=== PATIENT | male | born 1935 | race Caucasian/White ===

== ENCOUNTER 2016-05-23 05:56 | Inpatient (IN) | payer OTHER, MEDICARE ==
[~2016-05-23] VITALS: Ht 172.7 cm; Wt 48.0 kg
[~2016-05-23 05:56] MED LIST: ENDO7.5T10 PO; HYDR-3533 PO; POLY119S PO; PROS5TAB2 PO; TYLE3 PO
[2016-05-23 06:09] VITALS: BP 171/73; PULSE 58; RESP 16; TEMP 97.6; O2SAT 91
--- NOTE | 2016-05-23 06:48 | PD ---
HPI Chief Complaint: Fall Time Seen by Provider: 06:12 Travel History International Travel<30 days: No Contact w/Intl Traveler<30days: No Traveled to known affect area: No History of Present Illness HPI 81-year-old male complains of left hip pain and laceration to left eyebrow. Patient fell at home this morning. Patient denied loss of consciousness. Patient denies a headache or neck pain. Patient denied any chest pain or shortness of breath. Patient denies abdominal pain. Patient denies any focal weakness and numbness of extremity. Patient complaining of severe pain localized to left hip. Patient denies any pain radiation. On a scale from 1- 10 the pain is a 10. Patient is not sure of TD booster status. PFSH Past Medical History Cancer: Yes (PROSTATE) Cardiovascular Problems: No Diabetes: No Diminished Hearing: No Endocrine: No Gastrointestinal Disorders: Yes (NAUSEA VOMITING, CONSTIPATION) Genitourinary: No Hepatitis: No Hiatal Hernia: No Hypertension: No Immune Disorder: No Medical other: Yes (EDEMA OF FEET) Musculoskeletal: Yes (osteoporesis) Neurologic: Yes (DIZZY) Psychiatric: No Respiratory: No Thyroid Disease: No Tetanus Vaccination: Unknown Influenza Vaccination: No Past Surgical History Genitourinary Surgery: Yes (ESWL) Joint Replacement: No Pacemaker: No Other Surgery: Yes (back surgery) Social History Alcohol Use: Yes (DAILY BEER OR WINE) Tobacco Use: Yes (3 CIGS PER DAY) Substance Use: No Allergies-Medications (Allergen,Severity, Reaction): Coded Allergies: No Known Allergies (Unverified , 07/07/15) Reported Meds & Prescriptions Reported Meds & Active Scripts Active Review of Systems General / Constitutional: No: Fever Eyes: No: Visual changes HENT: No: Headaches Cardiovascular: No: Chest Pain or Discomfort Respiratory: No: Shortness of Breath Gastrointestinal: No: Abdominal Pain Genitourinary: No: Dysuria Musculoskeletal: Positive: Pain Skin: No Rash Neurologic: No: Weakness Psychiatric: No: Depression Endocrine: No: Polydipsia Hematologic/Lymphatic: No: Easy Bruising Physical Exam Narrative GENERAL: Well-nourished, well-developed patient. SKIN: Warm and dry. HEAD: Normocephalic. Patient has 3 cm laceration left forehead above the left eyebrow. No active bleeding. EYES: No scleral icterus. No injection or drainage. NECK: Supple, trachea midline. No JVD or lymphadenopathy. CARDIOVASCULAR: Regular rate and rhythm without murmurs, gallops, or rubs. RESPIRATORY: Breath sounds equal bilaterally. No accessory muscle use. GASTROINTESTINAL: Abdomen soft, non-tender, nondistended. MUSCULOSKELETAL: No cyanosis, or edema. BACK: Nontender without obvious deformity. No CVA tenderness. Left leg laterally rotated and mildly shortened. Patient has moderate to severe tenderness on palpation left hip. Sensorimotor function distally intact. Good DP pulses. Data Data Last Documented VS Vital Signs Date Time Temp Pulse Resp B/P Pulse Ox O2 Delivery O2 Flow Rate FiO2 05/23/16 06:16 58 16 92 Nasal Cannula 2 05/23/16 06:09 97.6 171/73 Orders Electrocardiogram (05/23/16 06:12) Complete Blood Count With Diff (05/23/16 06:12) Comprehensive Metabolic Panel (05/23/16 06:12) Prothrombin Time / Inr (Pt) (05/23/16 06:12) Act Partial Throm Time (Ptt) (05/23/16 06:12) Urinalysis - C+S If Indicated (05/23/16 06:12) Thyroid Stimulating Hormone (05/23/16 06:12) Chest, Single Ap (05/23/16 06:12) Iv Access Insert/Monitor (05/23/16 06:12) Ecg Monitoring (05/23/16 06:12) Oximetry (05/23/16 06:12) Type And Screen (05/23/16 06:12) Hip, Uni(Ap&Lat) W Ap Pelvis (05/23/16 06:12) MDM Medical Decision Making Medical Screen Exam Complete: Yes Emergency Medical Condition: Yes (tHAT FLUID THAT THE LACERATION TO THE FOREHEAD THE RADIUS THAT HE SHOULD BE OKAY WITH) Differential Diagnosis Differential diagnosis including laceration, contusion, fracture, dislocation. Narrative Course 81 year male with left forehead laceration left hip injury. Petar Taylor MD May 23, 2016 06:48
--- NOTE | 2016-05-23 06:50 | PD ---
Physical Exam Date Seen by Provider: May 23, 2016 Narrative Care assumed at 0700 pending workup for probable left hip fracture. Patient states that he is currently comfortable. His left lower extremity is shortened and externally rotated. Data Data Last Documented VS Vital Signs Date Time Temp Pulse Resp B/P Pulse Ox O2 Delivery O2 Flow Rate FiO2 05/23/16 06:16 58 16 92 Nasal Cannula 2 05/23/16 06:09 97.6 171/73 Orders Electrocardiogram (05/23/16 06:12) Complete Blood Count With Diff (05/23/16 06:12) Comprehensive Metabolic Panel (05/23/16 06:12) Prothrombin Time / Inr (Pt) (05/23/16 06:12) Act Partial Throm Time (Ptt) (05/23/16 06:12) Urinalysis - C+S If Indicated (05/23/16 06:12) Thyroid Stimulating Hormone (05/23/16 06:12) Chest, Single Ap (05/23/16 06:12) Iv Access Insert/Monitor (05/23/16 06:12) Ecg Monitoring (05/23/16 06:12) Oximetry (05/23/16 06:12) Type And Screen (05/23/16 06:12) Hip, Uni(Ap&Lat) W Ap Pelvis (05/23/16 06:12) Urinary Catheter Management GAGE.Q8H (05/23/16 07:34) Labs Laboratory Tests Test 05/23/16 05/23/16 06:15 07:30 White Blood Count 8.7 TH/MM3 Red Blood Count 3.86 MIL/MM3 Hemoglobin 12.3 GM/DL Hematocrit 36.8 % Mean Corpuscular Volume 95.3 FL Mean Corpuscular Hemoglobin 31.8 PG Mean Corpuscular Hemoglobin 33.3 % Concent Red Cell Distribution Width 15.4 % Platelet Count 245 TH/MM3 Mean Platelet Volume 9.0 FL Neutrophils (%) (Auto) 75.7 % Lymphocytes (%) (Auto) 15.2 % Monocytes (%) (Auto) 6.6 % Eosinophils (%) (Auto) 1.3 % Basophils (%) (Auto) 1.2 % Neutrophils # (Auto) 6.6 TH/MM3 Lymphocytes # (Auto) 1.3 TH/MM3 Monocytes # (Auto) 0.6 TH/MM3 Eosinophils # (Auto) 0.1 TH/MM3 Basophils # (Auto) 0.1 TH/MM3 CBC Comment DIFF FINAL Differential Comment Prothrombin Time 11.4 SEC Prothromb Time International 1.0 RATIO Ratio Activated Partial 24.9 SEC Thromboplast Time Sodium Level 144 MEQ/L Potassium Level 3.5 MEQ/L Chloride Level 110 MEQ/L Carbon Dioxide Level 26.3 MEQ/L Anion Gap 8 MEQ/L Blood Urea Nitrogen 15 MG/DL Creatinine 0.80 MG/DL Estimat Glomerular Filtration 92 ML/MIN Rate Random Glucose 115 MG/DL Calcium Level 8.7 MG/DL Total Bilirubin 0.3 MG/DL Aspartate Amino Transf 15 U/L (AST/SGOT) Alanine Aminotransferase 19 U/L (ALT/SGPT) Alkaline Phosphatase 93 U/L Total Protein 6.7 GM/DL Albumin 3.4 GM/DL Thyroid Stimulating Hormone 7.350 uIU/ML 3rd Gen Blood Type O POSITIVE Antibody Screen NEGATIVE Blood Bank Comment Urine Color YELLOW Urine Turbidity CLEAR Urine pH 5.5 Urine Specific [place] 1.020 Urine Protein TRACE mg/dL Urine Glucose (UA) NEG mg/dL Urine Ketones NEG mg/dL Urine Occult Blood TRACE Urine Nitrite NEG Urine Bilirubin NEG Urine Urobilinogen LESS THAN 2.0 MG/DL Urine Leukocyte Esterase NEG Urine RBC 5 /hpf Urine WBC LESS THAN 1 /hpf Urine Squamous Epithelial <1 /hpf Cells Urine Bacteria RARE /hpf Microscopic Urinalysis Comment CULT NOT INDICATED MDM Supervised Visit with BRET: No Differential Diagnosis Differential diagnosis is hip fracture versus contusion versus dislocation. Narrative Course CBC has an H&H of 12.3 and 36.8. His INR is 1.0. His chemistries are unremarkable. TSH is high at 7.35. Chest x-ray shows no acute disease. Left hip x-ray shows an impacted femoral neck fracture. Physician Communication Physician Communication Case discussed with Dr. Cameron. The patient will be admitted to the medical service with orthopedic consultation with plans for eminent repair of the hip fracture. Diagnosis Primary Impression: Closed left hip fracture Qualified Code: S72.002A - Closed left hip fracture, initial encounter Admitting Information Admitting Physician Requests: Admit Condition: Stable Ashley Randle MD May 23, 2016 06:50
--- NOTE | 2016-05-23 06:51 | RADRPT ---
EXAM DATE/TIME: 05/23/2016 06:20 [facility] COMPARISON: No previous studies available for comparison. INDICATIONS : Left hip pain post fall. MEDICAL HISTORY : None. SURGICAL HISTORY : Kyphoplasty. ENCOUNTER: Initial ACUITY: 1 day PAIN SCORE: 10/10 LOCATION: Left lateral hip FINDINGS: Examination of the left hip was performed with AP Pelvis. Possible impacted fracture femoral neck. No dislocation. The acetabulum is grossly intact. CONCLUSION: Possible impacted fracture left femoral neck. Noncontrast CT scan may be warranted. Mac Garcia MD on May 23, 2016 at 6:47 Board Certified Radiologist. This report was verified electronically.
--- NOTE | 2016-05-23 06:51 | RADRPT ---
EXAM DATE/TIME: 05/23/2016 06:31 [facility] COMPARISON: No previous studies available for comparison. INDICATIONS : Shortness of breath. MEDICAL HISTORY : None. SURGICAL HISTORY : Kyphoplasty. ENCOUNTER: Initial ACUITY: 1 day PAIN SCORE: 0/10 LOCATION: Bilateral chest FINDINGS: A single view of the chest demonstrates the lungs to be symmetrically aerated without evidence of mas s, infiltrate or effusion. The cardiomediastinal contours are unremarkable. Osseous structures are intact. Kyphoplasty cement within the upper lumbar vertebral body. CONCLUSION: No acute disease. Mac Garcia MD on May 23, 2016 at 6:49 Board Certified Radiologist. This report was verified electronically.
[2016-05-23 06:54] LABS: AUTOMATED NEUTROPHIL # 6.6 TH/MM3 (1.8-7.7); BASOPHIL # 0.1 TH/MM3 (0-0.2); BASOPHIL % 1.2 % (0.0-2.0); EOSINOPHIL # 0.1 TH/MM3 (0-0.4); EOSINOPHIL % 1.3 % (0.0-4.0); HEMATOCRIT 36.8 % (39.0-51.0); HEMO FLAGS DIFF FINAL; LYMPH % 15.2 % (9.0-44.0); LYMPHOCYTE # 1.3 TH/MM3 (1.0-4.8); MEAN CELL VOLUME 95.3 FL (80.0-100.0); MEAN CORPUSCULAR HEMOGLOBIN 31.8 PG (27.0-34.0); MEAN CORPUSCULAR HGB CONC 33.3 % (32.0-36.0); MONO % 6.6 % (0.0-8.0); NEUT % 75.7 % (16.0-70.0); PLATELET COUNT 245 TH/MM3 (150-450); RED BLOOD COUNT 3.86 MIL/MM3 (4.50-5.90); RED CELL DISTRIBUTION WIDTH 15.4 % (11.6-17.2); WHITE BLOOD COUNT 8.7 TH/MM3 (4.0-11.0)
[2016-05-23 06:57] LABS: ANION GAP 8 MEQ/L (5-15); AST (GOT) 15 U/L (15-37); BICARBONATE 26.3 MEQ/L (21.0-32.0); BLOOD UREA NITROGEN 15 MG/DL (7-18); CHLORIDE 110 MEQ/L (98-107); GLOMERULAR FILTRATION RATE 92 ML/MIN (>89); POTASSIUM 3.5 MEQ/L (3.5-5.1); SODIUM (NA) 144 MEQ/L (136-145)
[2016-05-23 07:00] VITALS: BP 133/63; PULSE 58; RESP 20; O2SAT 91
[2016-05-23 07:08] LABS: ALKALINE PHOSPHATASE 93 U/L (45-117); ALT (GPT) 19 U/L (12-78); TOTAL BILIRUBIN ADULT 0.3 MG/DL (0.2-1.0)
[2016-05-23 07:10] LABS: APTT (PATIENT) 24.9 SEC (24.3-30.1); PROTHROMBIN TIME - PATIENT 11.4 SEC (9.8-11.6)
[2016-05-23 07:50] LABS: BACTERIA, URINE RARE /hpf; BLOOD, URINE TRACE (NEG); COMMENT (UR) CULT NOT INDICATED; CULTURE IF INDICATED CULT NOT INDICATED; GLUCOSE,URINE NEG (NEG); KETONE, URINE NEG (NEG); NITRITE,URINE NEG (NEG); PH, URINE 5.5 (5.0-8.5); SQUAMOUS EPITHELIAL CELL URINE <1 /hpf (0-5); URINE COLOR YELLOW (YELLW/STRAW)
--- NOTE | 2016-05-23 08:28 | HHI.HP ---
[facility] Service [facility] Primary Care Physician Catalino Mireles MD Admission Diagnosis closed left femoral neck fracture Diagnoses: (1) Intertrochanteric fracture of left hip Chief Complaint: Fall Resulting in left hip pain Travel History International Travel<30 Days: No Contact w/Intl Traveler <30 Da: No Traveled to Known Affected Are: No History of Present Illness 81-year-old male was brought to the ED early this morning for evaluation of severe left hip pain rated 9/10 in intensity status post mechanical fall in his bathroom. Patient state, he was walking into his bowel from using a cane when he tripped over and landed on his left side hitting the hard floor of the bathroom. He denies any loss of consciousness however sustained a left eyebrow laceration. He only had localized left hip pain without any radiation. Patient was brought to the ED and was found to have left neck femoral fracture for which orthopedic surgery was consulted. Otherwise he has no GI complaint, chest pain or shortness of breath. Review of Systems Other Other 12 systems reviewed and are negative except for the one mentioned in the history of present illness Past Family Social History Past Medical History Cancer: Yes (PROSTATE) Medical other: Yes (EDEMA OF FEET) Musculoskeletal: Yes (osteoporosis) Past Surgical History Genitourinary Surgery: Yes (ESWL) Other Surgery: Yes (back surgery) Allergies: Coded Allergies: No Known Allergies (Unverified , 07/07/15) Family History Denies any family history of diabetes, hypertension. Social History Alcohol Use: Yes (DAILY BEER OR WINE) Tobacco Use: Yes (3 CIGS PER DAY) Substance Use: No Physical Exam Vital Signs Vital Signs Date Time Temp Pulse Resp B/P Pulse Ox O2 Delivery O2 Flow Rate FiO2 05/23/16 06:16 58 16 92 Nasal Cannula 2 05/23/16 06:09 97.6 58 16 171/73 91 Physical Exam GENERAL: This is a well-nourished, well-developed patient, in no apparent distress. SKIN: No rashes, ecchymoses or lesions. Cool and dry. HEAD: Atraumatic. Normocephalic. No temporal or scalp tenderness. EYES: Pupils equal round and reactive. Extraocular motions intact. No scleral icterus. No injection or drainage. ENT: Nose without bleeding, purulent drainage or septal hematoma. Throat without erythema, tonsillar hypertrophy or exudate. Uvula midline. Airway patent. NECK: Trachea midline. No JVD or lymphadenopathy. Supple, nontender, no meningeal signs. CARDIOVASCULAR: Regular rate and rhythm without murmurs, gallops, or rubs. RESPIRATORY: Clear to auscultation. Breath sounds equal bilaterally. No wheezes , rales, or rhonchi. GASTROINTESTINAL: Abdomen soft, non-tender, nondistended. No hepato-splenomegaly , or palpable masses. No guarding. MUSCULOSKELETAL: Extremities without clubbing, cyanosis, or edema. No joint tenderness, effusion, or edema noted. No calf tenderness. Negative Homans sign bilaterally. Left hip internally rotated with limited range of motion and tender to palpation NEUROLOGICAL: Awake and alert. Cranial nerves II through XII intact. Motor and sensory grossly within normal limits. Five out of 5 muscle strength in all muscle groups. Normal speech. Laboratory Laboratory Tests Test 05/23/16 05/23/16 06:15 07:30 White Blood Count 8.7 Red Blood Count 3.86 Hemoglobin 12.3 Hematocrit 36.8 Mean Corpuscular Volume 95.3 Mean Corpuscular Hemoglobin 31.8 Mean Corpuscular Hemoglobin 33.3 Concent Red Cell Distribution Width 15.4 Platelet Count 245 Mean Platelet Volume 9.0 Neutrophils (%) (Auto) 75.7 Lymphocytes (%) (Auto) 15.2 Monocytes (%) (Auto) 6.6 Eosinophils (%) (Auto) 1.3 Basophils (%) (Auto) 1.2 Neutrophils # (Auto) 6.6 Lymphocytes # (Auto) 1.3 Monocytes # (Auto) 0.6 Eosinophils # (Auto) 0.1 Basophils # (Auto) 0.1 CBC Comment DIFF FINAL Differential Comment Prothrombin Time 11.4 Prothromb Time International 1.0 Ratio Activated Partial 24.9 Thromboplast Time Sodium Level 144 Potassium Level 3.5 Chloride Level 110 Carbon Dioxide Level 26.3 Anion Gap 8 Blood Urea Nitrogen 15 Creatinine 0.80 Estimat Glomerular Filtration 92 Rate Random Glucose 115 Calcium Level 8.7 Total Bilirubin 0.3 Aspartate Amino Transf 15 (AST/SGOT) Alanine Aminotransferase 19 (ALT/SGPT) Alkaline Phosphatase 93 Total Protein 6.7 Albumin 3.4 Thyroid Stimulating Hormone 7.350 3rd Gen Blood Type O POSITIVE Antibody Screen NEGATIVE Blood Bank Comment Urine Color YELLOW Urine Turbidity CLEAR Urine pH 5.5 Urine Specific [place] 1.020 Urine Protein TRACE Urine Glucose (UA) NEG Urine Ketones NEG Urine Occult Blood TRACE Urine Nitrite NEG Urine Bilirubin NEG Urine Urobilinogen LESS THAN 2.0 Urine Leukocyte Esterase NEG Urine RBC 5 Urine WBC LESS THAN 1 Urine Squamous Epithelial <1 Cells Urine Bacteria RARE Microscopic Urinalysis Comment CULT NOT INDICATED Result Diagram: 05/23/1661405/23/16614 Assessment and Plan Assessment and Plan 81-year-old male with 1. S/p Fall: No LOC or head trauma. 2. Left Femur Fx: Femur X-ray w/ impacted fracture left femoral neck, images reviewed by me. Dr. Bronson consulted by ER physician, plan is for surgical intervention this a.m. Keep NPO, IVF, analgesics/antiemetics as needed. PT consult postprocedure to treat and eval 3. DVT Prophylaxis: Anticoagulation post-op per Ortho 4. Social work for d/c planning as needed. 5. Case discussed w/ ER physician at length. Code Status Full code Discussed Condition With Patient, ED physician Physician Certification 2 Midnight Certification Type: Admission for Inpatient Services Order for Inpatient Services The services are ordered in accordance with Medicare regulations or non- Medicare payer requirements, as applicable. In the case of services not specified as inpatient-only, they are appropriately provided as inpatient services in accordance with the 2-midnight benchmark. Estimated LOS (days): 2 days is the estimated time the patient will need to remain in the hospital, assuming treatment plan goals are met and no additional complications. Post-Hospital Plan: Not yet determined Mac Butts MD May 23, 2016 08:28
--- NOTE | 2016-05-23 08:39 | PD.ORT.PN ---
Subjective Subjective Remarks Left hip pain Objective Vitals Vital Signs Date Time Temp Pulse Resp B/P Pulse Ox O2 Delivery O2 Flow Rate FiO2 05/23/16 06:16 58 16 92 Nasal Cannula 2 05/23/16 06:09 97.6 58 16 171/73 91 Result Diagram: 05/23/16 0615 05/23/16 0615 Other Results Laboratory Tests Test 05/23/16 06:15 Prothrombin Time 11.4 SEC (9.8-11.6) Prothromb Time International 1.0 RATIO Ratio Objective Remarks Full consult dictated Assessment & Plan Problem List: (1) Intertrochanteric fracture of left hip Assessment and Plan Options of treatment were discussed Recommend ORIF Informed consent obtained No oblivious contra-indication Medical service to assess Hopefully proceed with ORIF today Eddy Cameron MD May 23, 2016 08:38
[2016-05-23] MEDS ORDERED: SODIUM CHLOR 0.9% 1000 ML INJ 1,000 ML IV SCH (09:00)
[2016-05-23] MEDS ORDERED: ONDANSETRON HCL 4 MG/2 ML VIAL IVP PRN (09:00)
[2016-05-23] MEDS: SODIUM CHLORIDE 0.9% FLUSH 5 ML FLUSH FLUSH SCH ×2 (09:00→22:31)
[2016-05-23] MEDS ORDERED: NALOXONE HCL 0.4 MG/ML AMP IV PRN (09:00)
[2016-05-23] MEDS ORDERED: MAGNESIUM HYDROXIDE SUSP 30 ML CUP PO PRN (09:00)
[2016-05-23] MEDS ORDERED: SODIUM CHLORIDE 0.9% FLUSH 5 ML FLUSH FLUSH PRN (09:00)
[2016-05-23] MEDS ORDERED: ACETAMINOPHEN 325 MG TAB PO PRN ×2 (09:00)
--- NOTE | 2016-05-23 09:14 | RADRPT ---
EXAM DATE/TIME: 05/23/2016 08:42 [facility] COMPARISON: No previous studies available for comparison. INDICATIONS : Patient fell last night. Bruising and swelling of 4th digit, left hand. MEDICAL HISTORY : None. SURGICAL HISTORY : None. ENCOUNTER: Initial ACUITY: 1 day PAIN SCORE: 3/10 LOCATION: Left 4th digit, left hand. FINDINGS: Diffuse decreased bone density. There is a transverse fracture through the base of the fourth proxima l phalanx, mildly displaced. No other fractures are seen. CONCLUSION: Fourth proximal phalanx fracture. Riley Gallegos MD on May 23, 2016 at 9:12 Board Certified Radiologist. This report was verified electronically.
[2016-05-23 09:45] VITALS: BP 143/79; PULSE 72; RESP 18; TEMP 96.8; O2SAT 93
--- NOTE | 2016-05-23 10:47 | MB ---
cc: LORRAINE MOCK M.D. DATE OF CONSULTATION: 05/23/2016 REASON FOR CONSULTATION: Consultation requested to evaluate left hip fracture. HISTORY OF PRESENT ILLNESS: Todd Lundberg is an 81 year old male who lives at his home with his who sustained a fall while walking into the bathroom today. He denied prodromal symptoms. This was a mechanical fall. He had immediate pain to his left hand and his left hip with the left hip being the most serious. He was brought to [facility] where x-rays revealed intertrochanteric fracture of the left hip. He was admitted to medical services with consultation placed with the undersigned. PAST MEDICAL HISTORY: Significant for prostate cancer. He also has history of back surgery. Known osteoporosis. Chronic constipation. SOCIAL HISTORY: Lives with his at home. He drinks beer and wine daily and does use tobacco. Denies drug use. PHYSICAL EXAMINATION IN GENERAL: The patient is alert, oriented, appropriate but admits that his memory could be better in regards to describing his medical conditions and usually his helps him with that she is apparently on her way to the hospital, she is not currently here. HEAD/NECK: His head and neck shows abrasions about the left forehead above his eyebrow and otherwise nontender. Good motion of the neck and nontender shoulders, elbows, wrist he has significant swelling about his left ring finger no clinical deformity but limited range of motion and sensation intact. Chest wall. ABDOMEN: Nontender to palpation. Tenderness to palpation about the left hip. The skin is intact. No effusion about the left knee. Calves are soft. Distal pulses are 2+, distal motor sensory. NEUROLOGIC: Neurologic examination intact. Homans' sign is negative. X-rays AP pelvis a left hip show good alignment and slightly impacted intertrochanteric fracture. ASSESSMENT Left hip intertrochanteric fracture and left hand injury. MEDICAL DECISION MAKING This case was discussed, operative treatments were discussed in regards to his hand, recommend further evaluation with x-rays in regards to the left hip. Recommend open reduction, internal fixation when it is medically appropriate to proceed. For the workup so far, I do not see any obvious contraindication but will finish the medical attending official, we talked about the surgery, talked about the risk of infection, nerve damage, blood vessel damage, mechanical complications. The risk of blood clots anesthetic complications and unforeseen possible complications all his questions were answered. Informed consent was obtained. MD CHARANJIT Busby/aditi /8:42 AM /10:29 AM
[2016-05-23] MEDS ORDERED: ePHEDrine/NS 50 MG/5 ML SYR IV ONE (11:02)
[2016-05-23] MEDS ORDERED: PHENYLEPH/NS 1000 MCG/10 ML SYR IV ONE (11:02)
[2016-05-23] MEDS ORDERED: PROPOFOL 200 MG/20 ML AMP IV ONE (11:02)
[2016-05-23] MEDS ORDERED: ONDANSETRON HCL 4 MG/2 ML VIAL IV PUSH ONE (11:02)
[2016-05-23] MEDS ORDERED: ceFAZolin INJ 1,000 MG VIAL IV ONE (12:31)
[2016-05-23] MEDS ORDERED: GENTAMICIN SULFATE 80 MG/2 ML VIAL IRRIGATION ONE (12:45)
--- NOTE | 2016-05-23 13:32 | RADRPT ---
EXAM DATE/TIME: 05/23/2016 12:35 [facility] COMPARISON: HIP LEFT (AP&LAT 2/3VWS) W AP PELVIS, May 23, 2016, 6:20. INDICATIONS : Left Hip Troch Nail. MEDICAL HISTORY : None. SURGICAL HISTORY : Kyphoplasty. ENCOUNTER: Initial ACUITY: 1 day PAIN SCORE: Non-responsive. LOCATION: Left Hip. FINDINGS: 4 spot intraoperative fluoroscopic views of the left hip demonstrate intramedullary bj and trochante dyan nail fixation of left proximal femur. CONCLUSION: Postoperative changes left femur. Riley Gallegos MD on May 23, 2016 at 13:30 Board Certified Radiologist. This report was verified electronically.
[2016-05-23] MEDS ORDERED: *RESP: ALBUTEROL 2.5 MG/3 ML NEB (PRN) PERIprocedural Use ONLY NEB ONE (13:44)
[2016-05-23] MEDS: LACTATED RINGER'S 1000 ML INJ 1,000 ML IV SCH (13:44)
--- NOTE | 2016-05-23 13:44 | PD.OP ---
Operative Report Preoperative Diagnosis: (1) Intertrochanteric fracture of left hip Postoperative Diagnosis: (1) Intertrochanteric fracture of left hip Procedure: Left Hip Open Reduction and Internal Fixation Anesthesia: General Surgeon: Eddy Cameron MD Doctor Of Nurse Anesthesia Practice(s): [facility] Operation and Findings: see dictation Eddy Cameron MD May 23, 2016 13:44
[2016-05-23] MEDS ORDERED: MISCELLANEOUS PHARMACY INFORMATION XX ONE (13:45)
[2016-05-23] MEDS ORDERED: SODIUM CHLORIDE 0.9% FLUSH 5 ML FLUSH IVF PRN (13:45)
[2016-05-23] MEDS ORDERED: MORPHINE SULFATE 30 MG/30 ML PCA IV SCH (13:45)
[2016-05-23] MEDS ORDERED: MISCELLANEOUS NURSING INFORMATION XX PRN (13:45)
[2016-05-23] MEDS ORDERED: Post-op Orders (for Pharmacy) MISC XX ONE (13:45)
--- NOTE | 2016-05-23 13:56 | EKG ---
Date Performed: 05/23/2016 Time Performed: 06:06:24 PTAGE: 81 years EKG: SINUS BRADYCARDIA SEPTAL MYOCARDIAL INFARCTION ABNORMAL ECG INTERPRETATION BASED ON A DEFAU LT AGE OF 40 YEARS Since PREVIOUS TRACING , no significant change noted PREVIOUS TRACIN10/29/2014 14.25 DOCTOR: Katelyn Juarez Interpretating Date/Time 05/23/2016 13:54:08
[2016-05-23] MEDS: PCA - TOTAL MG MORPHINE DELIVERED PER SHIFT SCH ×2 (14:00→22:00)
[2016-05-23 15:30] VITALS: BP 120/59; PULSE 85; RESP 18; TEMP 97.3; O2SAT 93
[2016-05-23] MEDS: MORPHINE SULFATE 30 MG/30 ML PCA IV SCH ×2 (15:33→15:43)
[2016-05-23 16:11] VITALS: O2SAT 93
[2016-05-23 20:00] VITALS: BP 137/59; PULSE 87; RESP 15; TEMP 97.6; O2SAT 97
[2016-05-23] MEDS ORDERED: SODIUM CHLORIDE 0.9% FLUSH 5 ML FLUSH IVF SCH (21:00)
[2016-05-24] VITALS (7 sets, daily range): BP systolic 116–149; BP diastolic 56–71; PULSE 77–87; RESP 16–18; TEMP 96.6–98; O2SAT 91–98
[2016-05-24] MEDS: LACTATED RINGER'S 1000 ML INJ 1,000 ML IV SCH ×2 (00:17→14:30)
[2016-05-24] MEDS: PCA - TOTAL MG MORPHINE DELIVERED PER SHIFT SCH ×3 (05:16→22:00)
--- NOTE | 2016-05-24 06:50 | PD.ORT.PN ---
Subjective Subjective Remarks POD 1 s/p IMN left hip doing well. pain controlled. has not been out of bed yet Objective Vitals Vital Signs Date Time Temp Pulse Resp B/P Pulse Ox O2 Delivery O2 Flow Rate FiO2 05/24/16 06:07 96 Nasal Cannula 2.00 05/24/16 05:16 16 05/24/16 04:15 97.6 85 16 116/56 94 05/24/16 00:00 97.8 87 16 118/56 98 05/23/16 22:00 17 05/23/16 20:00 97.6 87 15 137/59 97 05/23/16 16:11 93 Nasal Cannula 3.00 05/23/16 15:33 15 05/23/16 15:30 97.3 85 18 120/59 93 05/23/16 14:30 97.7 93 16 136/81 93 Nasal Cannula 3 05/23/16 14:15 82 16 157/86 93 Nasal Cannula 3 05/23/16 14:00 87 15 136/69 93 Nasal Cannula 3 05/23/16 13:45 81 14 146/79 93 Simple Mask 6 05/23/16 13:29 97.8 86 14 149/85 98 Simple Mask 6 05/23/16 09:45 96.8 72 18 143/79 93 05/23/16 07:00 58 20 133/63 91 Nasal Cannula 2 I/O 05/23/16 05/23/16 05/23/16 05/24/16 05/24/16 05/24/16 07:00 15:00 23:00 07:00 15:00 23:00 Intake Total 1000 ml 120 ml 120 ml Output Total 250 ml 200 ml 50 ml Balance 750 ml -80 ml 70 ml Intake Oral 120 ml 120 ml IV Total 200 ml Other 800 ml Output Urine Total 150 ml 200 ml 50 ml Estimated Blood Loss 100 ml # Bowel Movements 0 0 Result Diagram: 05/23/1615 05/23/1615 Imaging Last 24 hours Impressions Finger X-Ray 05/23/16 0844 Signed Impressions: Service Date/Time: Monday, May 23, 2016 08:42 - CONCLUSION: Fourth proximal phalanx fracture. Riley Gallegos MD Objective Remarks LLE: dressing clean and dry.intact. NVI distally Assessment & Plan Problem List: (1) Intertrochanteric fracture of left hip Assessment and Plan 1) Left Intertroch hip fx s/p IMN - POD 1 -WBAT -dressing changes per Dr Cameron protocol -CM for rehab placement -MARIOLA sampson -work with PT Saw Ivy May 24, 2016 06:50
[2016-05-24] MEDS: SODIUM CHLORIDE 0.9% FLUSH 5 ML FLUSH FLUSH SCH (09:00)
[2016-05-24 09:09] LABS: AUTOMATED NEUTROPHIL # 8.4 TH/MM3 (1.8-7.7); BASOPHIL # 0.1 TH/MM3 (0-0.2); BASOPHIL % 0.8 % (0.0-2.0); HEMATOCRIT 28.5 % (39.0-51.0); HEMO FLAGS DIFF FINAL; LYMPH % 7.1 % (9.0-44.0); LYMPHOCYTE # 0.7 TH/MM3 (1.0-4.8); MEAN CORPUSCULAR HEMOGLOBIN 31.8 PG (27.0-34.0); MEAN CORPUSCULAR HGB CONC 33.4 % (32.0-36.0); MONO % 5.9 % (0.0-8.0); NEUT % 86.2 % (16.0-70.0); PLATELET COUNT 179 TH/MM3 (150-450); RED CELL DISTRIBUTION WIDTH 15.1 % (11.6-17.2); WHITE BLOOD COUNT 9.8 TH/MM3 (4.0-11.0)
[2016-05-24 09:32] LABS: ALKALINE PHOSPHATASE 75 U/L (45-117); ALT (GPT) 17 U/L (12-78); ANION GAP 9 MEQ/L (5-15); AST (GOT) 28 U/L (15-37); BICARBONATE 22.7 MEQ/L (21.0-32.0); BLOOD UREA NITROGEN 13 MG/DL (7-18); CHLORIDE 109 MEQ/L (98-107); GLOMERULAR FILTRATION RATE 86 ML/MIN (>89); POTASSIUM 3.9 MEQ/L (3.5-5.1); SODIUM (NA) 141 MEQ/L (136-145); TOTAL BILIRUBIN ADULT 0.3 MG/DL (0.2-1.0)
--- NOTE | 2016-05-24 10:46 | HHI.PR ---
Subjective Remarks Follow-up left hip fracture 05/24/16-patient seen and examined, complains of left hip otherwise no other issues. Afebrile. by the bedside and she will bring the list of his outpatient medications Objective Vitals Vital Signs Date Time Temp Pulse Resp B/P Pulse Ox O2 Delivery O2 Flow Rate FiO2 05/24/16 08:00 96.6 79 18 136/60 91 05/24/16 06:07 96 Nasal Cannula 2.00 05/24/16 05:16 16 05/24/16 04:15 97.6 85 16 116/56 94 05/24/16 00:00 97.8 87 16 118/56 98 05/23/16 22:00 17 05/23/16 20:00 97.6 87 15 137/59 97 05/23/16 16:11 93 Nasal Cannula 3.00 05/23/16 15:33 15 05/23/16 15:30 97.3 85 18 120/59 93 05/23/16 14:30 97.7 93 16 136/81 93 Nasal Cannula 3 05/23/16 14:15 82 16 157/86 93 Nasal Cannula 3 05/23/16 14:00 87 15 136/69 93 Nasal Cannula 3 05/23/16 13:45 81 14 146/79 93 Simple Mask 6 05/23/16 13:29 97.8 86 14 149/85 98 Simple Mask 6 I/O 05/23/16 05/23/16 05/23/16 05/24/16 05/24/16 05/24/16 07:00 15:00 23:00 07:00 15:00 23:00 Intake Total 1000 ml 120 ml 120 ml Output Total 250 ml 200 ml 50 ml Balance 750 ml -80 ml 70 ml Intake Oral 120 ml 120 ml IV Total 200 ml Other 800 ml Output Urine Total 150 ml 200 ml 50 ml Estimated Blood Loss 100 ml # Bowel Movements 0 0 Result Diagram: 05/24/16 0800 05/24/16 0800 Imaging Last Impressions Finger X-Ray 05/23/16 0844 Signed Impressions: Service Date/Time: Monday, May 23, 2016 08:42 - CONCLUSION: Fourth proximal phalanx fracture. Riley Gallegos MD Hip and Pelvis X-Ray 05/23/16 0612 Signed Impressions: Service Date/Time: Monday, May 23, 2016 06:20 - CONCLUSION: Possible impacted fracture left femoral neck. Noncontrast CT scan may be warranted. Mac Garcia MD Chest X-Ray 05/23/16 0612 Signed Impressions: Service Date/Time: Monday, May 23, 2016 06:31 - CONCLUSION: No acute disease. Mac Garcia MD Hip X-Ray 05/23/16 0000 Signed Impressions: Service Date/Time: Monday, May 23, 2016 12:35 - CONCLUSION: Postoperative changes left femur. Riley Gallegos MD Objective Remarks GENERAL: NAD SKIN: Warm and dry. HEAD: Normocephalic. EYES: No scleral icterus. No injection or drainage. NECK: Supple, trachea midline. No JVD or lymphadenopathy. CARDIOVASCULAR: Regular rate and rhythm without murmurs, gallops, or rubs. RESPIRATORY: Breath sounds equal bilaterally. No accessory muscle use. GASTROINTESTINAL: Abdomen soft, non-tender, nondistended. MUSCULOSKELETAL: No cyanosis, or edema. Left hip repair-neurovascular intact BACK: Nontender without obvious deformity. No CVA tenderness. Procedures Left Hip Open Reduction and Internal Fixation 05/23/16 A/P Problem List: (1) Intertrochanteric fracture of left hip ICD Code: S72.142A Status: Acute Assessment and Plan 81-year-old male with 1. S/p Fall: No LOC or head trauma. 2. Left Femur Fx: Femur X-ray w/ impacted fracture left femoral neck. Status post Left Hip Open Reduction and Internal Fixation 05/23/16 and management per orthopedic surgery. Continue current postop care analgesics/antiemetics as needed. PT consult 3. Fourth left proximal phalanx fracture: Conservative management 4. DVT Prophylaxis: Lovenox 5. Social work for d/c planning as needed. Mac Butts MD May 24, 2016 10:46
[2016-05-24] MEDS: ENOXAPARIN SODIUM 40 MG/0.4 ML SYRINGE SQ SCH (12:30)
[2016-05-25 00:15] VITALS: BP 173/77; PULSE 79; RESP 18; TEMP 98.1; O2SAT 92
[2016-05-25] MEDS: LACTATED RINGER'S 1000 ML INJ 1,000 ML IV SCH ×2 (03:14→15:11)
[2016-05-25 04:15] VITALS: BP 159/70; PULSE 92; RESP 19; TEMP 96.5; O2SAT 92
[2016-05-25] MEDS: PCA - TOTAL MG MORPHINE DELIVERED PER SHIFT SCH ×3 (06:00→22:00)
[2016-05-25 08:00] VITALS: BP 160/74; PULSE 87; RESP 18; TEMP 97.9; O2SAT 92
--- NOTE | 2016-05-25 08:25 | HHI.PR ---
Subjective Remarks awake lying in bed pain controlled Objective Vital Signs Date Time Temp Pulse Resp B/P Pulse Ox O2 Delivery O2 Flow Rate FiO2 05/25/16 04:15 96.5 92 19 159/70 92 05/25/16 00:15 98.1 79 18 173/77 92 05/24/16 20:50 97.4 81 18 143/70 94 05/24/16 16:25 96.8 82 18 142/71 94 05/24/16 12:00 98.0 77 18 149/70 94 I/O 05/24/16 05/24/16 05/24/16 05/25/16 05/25/16 05/25/16 06:59 14:59 22:59 06:59 14:59 22:59 Intake Total 120 ml 600 ml 50 ml Output Total 50 ml 300 ml Balance 70 ml 600 ml -250 ml Intake Oral 120 ml 600 ml 50 ml Output Urine Total 50 ml 300 ml # Voids 3 1 # Bowel Movements 0 0 0 Result Diagram: 05/24/16 0800 05/24/16 0800 Objective Remarks Pe: dressing clean, dry no calf swelling neg constance nvi distally compartments soft Assessment and Plan Assessment and Plan pod 2 s/p left troch nail wbat therapy lovenox maintain dressing d/c planning to rehab Joby Noble May 25, 2016 08:25
[2016-05-25] MEDS: SODIUM CHLORIDE 0.9% FLUSH 5 ML FLUSH FLUSH SCH ×2 (09:09→22:21)
--- NOTE | 2016-05-25 09:46 | HHI.PR ---
Subjective Remarks Follow-up left hip fracture 05/24/16-patient seen and examined, complains of left hip otherwise no other issues. Afebrile. by the bedside and she will bring the list of his outpatient medications 05/25/16-patient seen and examined; reports significant improvement of left hip pain. Afebrile and no other issues by the bedside. Objective Vitals Vital Signs Date Time Temp Pulse Resp B/P Pulse Ox O2 Delivery O2 Flow Rate FiO2 05/25/16 06:00 18 05/25/16 04:15 96.5 92 19 159/70 92 05/25/16 00:15 98.1 79 18 173/77 92 05/24/16 22:00 19 05/24/16 20:50 97.4 81 18 143/70 94 05/24/16 16:25 96.8 82 18 142/71 94 05/24/16 12:00 98.0 77 18 149/70 94 I/O 05/24/16 05/24/16 05/24/16 05/25/16 05/25/16 05/25/16 07:00 15:00 23:00 07:00 15:00 23:00 Intake Total 120 ml 480 ml 120 ml 50 ml 1186 ml Output Total 50 ml 300 ml Balance 70 ml 480 ml 120 ml -250 ml 1186 ml Intake Oral 120 ml 480 ml 120 ml 50 ml IV Total 1186 ml Output Urine Total 50 ml 300 ml # Voids 2 1 1 # Bowel Movements 0 0 0 Result Diagram: 05/24/16 0800 05/24/16 0800 Imaging Last Impressions Finger X-Ray 05/23/16 0844 Signed Impressions: Service Date/Time: Monday, May 23, 2016 08:42 - CONCLUSION: Fourth proximal phalanx fracture. Riley Gallegos MD Hip and Pelvis X-Ray 05/23/1612 Signed Impressions: Service Date/Time: Monday, May 23, 2016 06:20 - CONCLUSION: Possible impacted fracture left femoral neck. Noncontrast CT scan may be warranted. Mac Garcia MD Chest X-Ray 05/23/1612 Signed Impressions: Service Date/Time: Monday, May 23, 2016 06:31 - CONCLUSION: No acute disease. Mac Garcia MD Hip X-Ray 05/23/16 0000 Signed Impressions: Service Date/Time: Monday, May 23, 2016 12:35 - CONCLUSION: Postoperative changes left femur. Riley Gallegos MD Objective Remarks GENERAL: NAD SKIN: Warm and dry. HEAD: Normocephalic. EYES: No scleral icterus. No injection or drainage. NECK: Supple, trachea midline. No JVD or lymphadenopathy. CARDIOVASCULAR: Regular rate and rhythm without murmurs, gallops, or rubs. RESPIRATORY: Breath sounds equal bilaterally. No accessory muscle use. GASTROINTESTINAL: Abdomen soft, non-tender, nondistended. MUSCULOSKELETAL: No cyanosis, or edema. Left hip repair-neurovascular intact BACK: Nontender without obvious deformity. No CVA tenderness. Procedures Left Hip Open Reduction and Internal Fixation 05/23/16 A/P Problem List: (1) Intertrochanteric fracture of left hip ICD Code: S72.142A Status: Acute Assessment and Plan 81-year-old male with 1. S/p Fall: No LOC or head trauma. 2. Left Femur Fx: Femur X-ray w/ impacted fracture left femoral neck. Status post Left Hip Open Reduction and Internal Fixation 05/23/16 and management per orthopedic surgery. Continue current postop care analgesics/antiemetics as needed. PT consult 3. Fourth left proximal phalanx fracture: Conservative management 4. DVT Prophylaxis: Lovenox 5. Social work for d/c planning as needed. Discharge Planning Likely discharge 05/26/16 Mac Butts MD May 25, 2016 09:46
[2016-05-25 12:00] VITALS: BP 149/70; PULSE 120; RESP 18; TEMP 98.4; O2SAT 96
[2016-05-25] MEDS: ENOXAPARIN SODIUM 40 MG/0.4 ML SYRINGE SQ SCH (12:49)
[2016-05-25] MEDS: MORPHINE SULFATE 30 MG/30 ML PCA IV SCH (15:09)
[2016-05-25 16:00] VITALS: BP 136/64; PULSE 73; RESP 16; TEMP 97.1; O2SAT 95
[2016-05-25 20:00] VITALS: BP 132/63; PULSE 75; RESP 16; TEMP 97.4; O2SAT 96
[2016-05-26] VITALS: BP 121/58; PULSE 76; RESP 16; TEMP 97.8; O2SAT 94
[2016-05-26] MEDS: PCA - TOTAL MG MORPHINE DELIVERED PER SHIFT SCH ×2 (05:58→14:00)
[2016-05-26] MEDS ORDERED: ENOX40P SQ (07:56)
[2016-05-26 08:00] VITALS: BP 149/68; PULSE 89; RESP 20; TEMP 98; O2SAT 91
[2016-05-26] MEDS ORDERED: NORC5TAB PO (08:01)
--- NOTE | 2016-05-26 08:11 | PD.ORT.PN ---
Subjective Subjective Remarks Left hip pain controlled Objective Vitals Vital Signs Date Time Temp Pulse Resp B/P Pulse Ox O2 Delivery O2 Flow Rate FiO2 05/26/16 00:00 97.8 76 16 121/58 94 05/25/16 20:00 97.4 75 16 132/63 96 05/25/16 18:45 Nasal Cannula 2.00 05/25/16 16:00 97.1 73 16 136/64 95 05/25/16 15:09 16 05/25/16 14:00 16 05/25/16 12:00 98.4 120 18 149/70 96 I/O 05/25/16 05/25/16 05/25/16 05/26/16 05/26/16 05/26/16 07:00 15:00 23:00 07:00 15:00 23:00 Intake Total 50 ml 1666 ml 503 ml 395 ml Output Total 300 ml 100 ml 100 ml Balance -250 ml 1566 ml 403 ml 395 ml Intake Oral 50 ml 480 ml 240 ml 240 ml IV Total 1186 ml 263 ml 155 ml Output Urine Total 300 ml 100 ml 100 ml # Voids 1 1 1 # Bowel Movements 0 0 0 0 Result Diagram: 05/24/16 0800 05/24/16 0800 Imaging Last 24 hours Impressions Finger X-Ray 05/23/16 0844 Signed Impressions: Service Date/Time: Monday, May 23, 2016 08:42 - CONCLUSION: Fourth proximal phalanx fracture. Riley Gallegos MD Objective Remarks LLE: dressing clean and dry.intact. NVI distally Assessment & Plan Problem List: (1) Intertrochanteric fracture of left hip Assessment and Plan 1) Left Intertroch hip fx s/p IMN - POD 3 -WBAT -Maintain dressing intact -CM for rehab placement -Weight bearing as tolerated -Ok to D/C and follow up in 1 week Eddy Cameron MD May 26, 2016 08:11
[2016-05-26] MEDS: SODIUM CHLORIDE 0.9% FLUSH 5 ML FLUSH FLUSH SCH (09:00)
[2016-05-26] MEDS ORDERED: FINASTERIDE 5 MG TAB PO SCH (09:00)
[2016-05-26] MEDS: ACETAMINOPHEN/HYDROcodone 325 MG/5 MG TAB PO PRN ×2 (09:01→17:19)
--- NOTE | 2016-05-26 10:00 | HHI.PR ---
Subjective Remarks Follow-up left hip fracture 05/24/16-patient seen and examined, complains of left hip otherwise no other issues. Afebrile. by the bedside and she will bring the list of his outpatient medications 05/25/16-patient seen and examined; reports significant improvement of left hip pain. Afebrile and no other issues by the bedside. 05/26/16-patient seen and examined; stable and no acute event overnight. Denies any left hip pain. Objective Vitals Vital Signs Date Time Temp Pulse Resp B/P Pulse Ox O2 Delivery O2 Flow Rate FiO2 05/26/16 08:00 98.0 89 20 149/68 91 05/26/16 00:00 97.8 76 16 121/58 94 05/25/16 20:00 97.4 75 16 132/63 96 05/25/16 18:45 Nasal Cannula 2.00 05/25/16 16:00 97.1 73 16 136/64 95 05/25/16 15:09 16 05/25/16 14:00 16 05/25/16 12:00 98.4 120 18 149/70 96 I/O 05/25/16 05/25/16 05/25/16 05/26/16 05/26/16 05/26/16 07:00 15:00 23:00 07:00 15:00 23:00 Intake Total 50 ml 1666 ml 503 ml 395 ml Output Total 300 ml 100 ml 100 ml Balance -250 ml 1566 ml 403 ml 395 ml Intake Oral 50 ml 480 ml 240 ml 240 ml IV Total 1186 ml 263 ml 155 ml Output Urine Total 300 ml 100 ml 100 ml # Voids 1 1 1 # Bowel Movements 0 0 0 0 Result Diagram: 05/24/16 0800 05/24/16 0800 Imaging Last Impressions Finger X-Ray 05/23/16 0844 Signed Impressions: Service Date/Time: Monday, May 23, 2016 08:42 - CONCLUSION: Fourth proximal phalanx fracture. Riley Gallegos MD Hip and Pelvis X-Ray 05/23/16611 Signed Impressions: Service Date/Time: Monday, May 23, 2016 06:20 - CONCLUSION: Possible impacted fracture left femoral neck. Noncontrast CT scan may be warranted. Mac Garcia MD Chest X-Ray 05/23/16611 Signed Impressions: Service Date/Time: Monday, May 23, 2016 06:31 - CONCLUSION: No acute disease. Mac Garcia MD Hip X-Ray 05/23/16 0000 Signed Impressions: Service Date/Time: Monday, May 23, 2016 12:35 - CONCLUSION: Postoperative changes left femur. Riley Gallegos MD Objective Remarks GENERAL: NAD SKIN: Warm and dry. HEAD: Normocephalic. EYES: No scleral icterus. No injection or drainage. NECK: Supple, trachea midline. No JVD or lymphadenopathy. CARDIOVASCULAR: Regular rate and rhythm without murmurs, gallops, or rubs. RESPIRATORY: Breath sounds equal bilaterally. No accessory muscle use. GASTROINTESTINAL: Abdomen soft, non-tender, nondistended. MUSCULOSKELETAL: No cyanosis, or edema. Left hip repair-neurovascular intact BACK: Nontender without obvious deformity. No CVA tenderness. Procedures Left Hip Open Reduction and Internal Fixation 05/23/16 A/P Problem List: (1) Intertrochanteric fracture of left hip ICD Code: S72.142A Status: Acute Assessment and Plan 81-year-old male with 1. S/p Fall: No LOC or head trauma. 2. Left Femur Fx: Femur X-ray w/ impacted fracture left femoral neck. Status post Left Hip Open Reduction and Internal Fixation 05/23/16 and management per orthopedic surgery. Continue current postop care analgesics/antiemetics as needed. PT consult 3. Fourth left proximal phalanx fracture: Conservative management 4. DVT Prophylaxis: Lovenox 5. Social work for d/c planning as needed. Discharge Planning Likely discharge 05/26/16 Mac Butts MD May 26, 2016 10:00
--- NOTE | 2016-05-26 10:02 | HHI.DS ---
Discharge Summary Admission Date May 23, 2016 at 08:35 Discharge Date: May 26, 2016 Admitting Diagnosis closed left femoral neck fracture (1) Intertrochanteric fracture of left hip ICD Code: S72.142A Procedures Left Hip Open Reduction and Internal Fixation 05/23/16 Brief History - From Admission 81-year-old male was brought to the ED early this morning for evaluation of severe left hip pain rated 9/10 in intensity status post mechanical fall in his bathroom. Patient state, he was walking into his bowel from using a cane when he tripped over and landed on his left side hitting the hard floor of the bathroom. He denies any loss of consciousness however sustained a left eyebrow laceration. He only had localized left hip pain without any radiation. Patient was brought to the ED and was found to have left neck femoral fracture for which orthopedic surgery was consulted. Otherwise he has no GI complaint, chest pain or shortness of breath. CBC/BMP: 05/24/16 0800 05/24/16 0800 Significant Findings Laboratory Tests Test 05/24/16 08:00 Red Blood Count 3.00 MIL/MM3 (4.50-5.90) Hemoglobin 9.5 GM/DL (13.0-17.0) Hematocrit 28.5 % (39.0-51.0) Neutrophils (%) (Auto) 86.2 % (16.0-70.0) Lymphocytes (%) (Auto) 7.1 % (9.0-44.0) Neutrophils # (Auto) 8.4 TH/MM3 (1.8-7.7) Lymphocytes # (Auto) 0.7 TH/MM3 (1.0-4.8) Chloride Level 109 MEQ/L (98-107) Estimat Glomerular Filtration 86 ML/MIN (>89) Rate Random Glucose 116 MG/DL (74-106) Calcium Level 8.1 MG/DL (8.5-10.1) Total Protein 5.8 GM/DL (6.4-8.2) Albumin 2.7 GM/DL (3.4-5.0) Imaging Last Impressions Finger X-Ray 05/23/16 0898 Signed Impressions: Service Date/Time: Monday, May 23, 2016 08:42 - CONCLUSION: Fourth proximal phalanx fracture. Riley Gallegos MD Hip and Pelvis X-Ray 05/23/1612 Signed Impressions: Service Date/Time: Monday, May 23, 2016 06:20 - CONCLUSION: Possible impacted fracture left femoral neck. Noncontrast CT scan may be warranted. Mac Garcia MD Chest X-Ray 05/23/1612 Signed Impressions: Service Date/Time: Monday, May 23, 2016 06:31 - CONCLUSION: No acute disease. Mac Garcia MD Hip X-Ray 05/23/16 0000 Signed Impressions: Service Date/Time: Monday, May 23, 2016 12:35 - CONCLUSION: Postoperative changes left femur. Riley Gallegos MD PE at Discharge GENERAL: NAD SKIN: Warm and dry. HEAD: Normocephalic. EYES: No scleral icterus. No injection or drainage. NECK: Supple, trachea midline. No JVD or lymphadenopathy. CARDIOVASCULAR: Regular rate and rhythm without murmurs, gallops, or rubs. RESPIRATORY: Breath sounds equal bilaterally. No accessory muscle use. GASTROINTESTINAL: Abdomen soft, non-tender, nondistended. MUSCULOSKELETAL: No cyanosis, or edema. Left hip repair-neurovascular intact BACK: Nontender without obvious deformity. No CVA tenderness. Hospital Course Patient was admitted secondary to left femur fracture for which orthopedic surgery was consulted and he underwent open reduction and internal fixation . Physical therapy was consulted and patient was placed on Lovenox for DVT prophylaxis and pain management was provided. Vitals were monitor, patient condition improved and prior to discharge patient able to ambulate. Pt Condition on Discharge: Stable Discharge Disposition: Rehab Inpatient Discharge Time: > 30 minutes Discharge Instructions DIET: Follow Instructions for: Heart Healthy Diet Activities you can perform: Regular-No Restrictions Follow up Referrals: Orthopedics - 10 Days @ [facility] with Sravan Snider PCP Follow-up - 2-3 Days New Medications: Docusate Sodium (Colace) 100 Mg Cap 100 MG PO BID PRN Constipation #60 Ref 0 CAP Hydrocodone-Acetaminophen ([place]) 5-325 mg Tab 1 TAB PO Q4H PRN PAIN #60 Ref 0 TAB Enoxaparin Inj (Lovenox Inj) 40 Mg/0.4 Ml Syr 40 MG SQ Q24H Calcium Supplement Days 14 INJECTION Mac Butts MD May 26, 2016 10:02
[2016-05-26] MEDS ORDERED: COLA100C3 PO (10:03)
[2016-05-26 12:00] VITALS: BP 136/77; PULSE 81; RESP 20; TEMP 97.5; O2SAT 92
[2016-05-26] MEDS ORDERED: PANTOPRAZOLE SOD 40 MG DELAYED RELEASE TAB PO SCH (12:00)
[2016-05-26] MEDS ORDERED: BISACODYL 10 MG SUPP PR PRN (12:00)
[2016-05-26] MEDS ORDERED: SOD PHOSPHATE/SOD BIPHOSPHATE (ADULT) ENEMA 133ML PR ONE (12:15)
[2016-05-26] MEDS: ENOXAPARIN SODIUM 40 MG/0.4 ML SYRINGE SQ SCH (13:20)
[2016-05-26 13:33] LABS: HEMATOCRIT 25.9 % (39.0-51.0)
[2016-05-26 16:55] VITALS: BP 137/74; PULSE 70; RESP 20; TEMP 96.4; O2SAT 94
--- NOTE | 2016-06-29 07:32 | MP ---
cc: LORRAINE MOCK M.D. DATE OF SURGERY 05/23/2016 PREOPERATIVE DIAGNOSES 1. Left hip intertrochanteric fracture. 2. Fourth proximal phalanx fracture. POSTOPERATIVE DIAGNOSES 1. Left hip intertrochanteric fracture. 2. Fourth proximal phalanx fracture. PROCEDURE 1. Left hip open reduction internal fixation with trochanteric nail. 2. Left hand closed management of proximal phalanx fracture. ANESTHETIC General. SURGEON Lorraine Mock MD UX MANAGER SURGEON Sravan DE JESUS ESTIMATED BLOOD LOSS 50 cc. DRAINS None. SPECIMEN None. COMPLICATIONS None known. INDICATION Todd Lundberg is an 81-year-old male who sustained a fall and fractured his left hip. He is indicated for surgical repair. The risks and benefits were thoroughly discussed and a detailed, informed consent was obtained. Additionally, he had a hand injury and we eventually were able to confirm fracture radiographically and he was indicated for closed management of this with norman taping. Informed consent was obtained. PROCEDURE The tutoring assistant, Sravan Snider is an advanced registered nurse practitioner and his skill set was medically necessary for the performance of the operation. He assisted by retracting and protecting vital structures and helped with complex instrumentation. Additionally, a technical solutions engineer was used to assist with instrumentation. The patient was brought the operating room. He was placed under general anesthetic and placed on the well-padded fracture table. We evaluated the hand and proceeded with norman taping technique with overall good alignment noted with this in place. We proceeded to position, fluoroscopically evaluating the hip on the fracture table and, using traction and varied internal and external rotations, we were satisfied with the overall alignment. We then proceeded to prep and drape in the usual sterile fashion. IV antibiotics were given. A time-out was completed. We used fluoroscopy for the planned incision. I made incision superior to the trochanter and retracted and traversed through the fascial layer, down to the level of the tip of the trochanter, then proceeded to advance the guidepin down the shaft in good position in the AP and lateral plane and then over-reamed this and confirmed positioning and placement of our nail and impacted into position and used a separate incision with outrigger device, retraction, placement of guidepin confirmed to be in good position in AP and lateral plane, then over-reamed the lateral cortex and proceeded to place our flanged nail and then used the secondary guide for placement of our distal locking screw after traction was released, detached the outrigger guide. We irrigated out with copious amounts of irrigation, proceeded to close in layers of absorbable sutures, subcuticular on the skin. Steri-Strips applied. Sterile dressing applied. The patient was awoken and returned to the recovery room in stable condition. MD CHARANJIT Busby/MIRZA /1:13 PM /7:13 AM
== END 2016-05-26 17:46 | DRG 482 ==
LOC: NEPC 05:56 → NEDA 08:35 → N06B 09:48
PROVIDERS: ADMIT Hospitalist; ATTEND Hospitalist
PROC: 0QS704Z Reposition Left Upper Femur with Internal Fixation Device, Open Approach (ICD-10-PCS; principal; 2016-05-23 11:53)
DX: S72.142A Displaced intertrochanteric fracture of left femur, initial encounter for closed fracture (principal); S62.615A Displaced fracture of proximal phalanx of left ring finger, initial encounter for closed fracture; C61 Malignant neoplasm of prostate; S01.81XA Laceration without foreign body of other part of head, initial encounter; K59.09 Other constipation; M81.0 Age-related osteoporosis without current pathological fracture; F17.210 Nicotine dependence, cigarettes, uncomplicated; W01.0XXA Fall on same level from slipping, tripping and stumbling without subsequent striking against object, initial encounter; Y92.002 Bathroom of unspecified non-institutional (private) residence as the place of occurrence of the external cause
CPT/HCPCS: 51702; 71010; 73140; 73502; 76000; 80053; 81001; 84443; 85014; 85018; 85025; 85610; 85730; 86850; 86900; 86901; 93005; 94150; 94664; C1713; J0690; J1580; J1650; J2270; J2370; J2405; J3010; J7120; J7613

== ENCOUNTER 2016-06-03 16:07 | Inpatient (IN) | payer OTHER, MEDICARE ==
[~2016-06-03] VITALS: Ht 170.2 cm; Wt 49.6 kg
[~2016-06-03 16:07] MED LIST changes: +COLA100C3 PO; -ENDO7.5T10 PO; +ENOX40P SQ; -HYDR-3533 PO; +NORC5TAB PO; -POLY119S PO; -PROS5TAB2 PO; -TYLE3 PO
--- NOTE | 2016-06-03 16:36 | PD ---
HPI Chief Complaint: sob Time Seen by Provider: 16:36 Travel History International Travel<30 days: No Contact w/Intl Traveler<30days: No Traveled to known affect area: No History of Present Illness HPI 81-year-old male with history of prostate cancer, osteoporosis, recent left hip surgery, presents to the emergency department for evaluation of shortness of breath. Patient had ORIF of the left hip May 24, 2016. He has developed increasing shortness of breath over the last few days with a coarse cough. It is productive but he has been unable to spit most of it out.. Rehabilitation facility is concerned he may have a PE. Patient states that he can't breathe. He reports pain with inspiration. Unknown if he has had fever but has felt chilled. No nausea, vomiting, or diarrhea. PFSH Past Medical History Cancer: Yes (PROSTATE) Cardiovascular Problems: No Diabetes: No Diminished Hearing: No Endocrine: No Gastrointestinal Disorders: Yes (NAUSEA VOMITING, CONSTIPATION) Genitourinary: No Hepatitis: No Hiatal Hernia: No Hypertension: No Immune Disorder: No Musculoskeletal: Yes (osteoporesis) Neurologic: Yes (DIZZY) Psychiatric: No Respiratory: No Thyroid Disease: No Past Surgical History Genitourinary Surgery: Yes (ESWL) Joint Replacement: No Pacemaker: No Other Surgery: Yes (back surgery) Social History Alcohol Use: Yes (DAILY BEER OR WINE) Tobacco Use: Yes (3 CIGS PER DAY) Substance Use: No Allergies-Medications (Allergen,Severity, Reaction): Coded Allergies: No Known Allergies (Unverified , 06/03/16) Reported Meds & Prescriptions Reported Meds & Active Scripts Active Colace (Docusate Sodium) 100 Mg Cap 100 Mg PO BID PRN [place]atone (Hydrocodone-Acetaminophen) 5-325 mg Tab 1 Tab PO Q4H PRN Lovenox Inj (Enoxaparin Sodium) 40 Mg/0.4 Ml Syr 40 Mg SQ Q24H 14 Days Reported Xanax (Alprazolam) 0.25 Mg Tab 0.25 Mg PO Q8H PRN Metoprolol Tartrate 25 Mg Tab 25 Mg PO BID Review of Systems Except as stated in HPI: all other systems reviewed are Neg Physical Exam Narrative GENERAL: Thin, elderly male patient, ill-appearing but in no acute distress. SKIN: Warm and dry. HEAD: Atraumatic. Normocephalic. EYES: Pupils equal and round. No scleral icterus. No injection or drainage. ENT: No nasal bleeding or discharge. Mucous membranes pink and moist. NECK: Trachea midline. No JVD. CARDIOVASCULAR: Tachycardic rate and rhythm. No murmur appreciated. RESPIRATORY: No accessory muscle use. Coarse throughout, diminished bases. Breath sounds equal bilaterally. GASTROINTESTINAL: Abdomen soft, non-tender, nondistended. Hepatic and splenic margins not palpable. MUSCULOSKELETAL: No obvious deformities. No clubbing. No cyanosis. No edema. NEUROLOGICAL: Awake and alert. No obvious cranial nerve deficits. Motor grossly within normal limits. Normal speech. PSYCHIATRIC: Appropriate mood and affect; insight and judgment normal. Data Data Last Documented VS Vital Signs Date Time Temp Pulse Resp B/P Pulse Ox O2 Delivery O2 Flow Rate FiO2 06/03/16 20:04 98.4 80 26 127/61 90 Nasal Cannula 4 Orders Complete Blood Count With Diff (06/03/16 16:31) Basic Metabolic Panel (Bmp) (06/03/16 16:31) B-Type Natriuretic Peptide (06/03/16 16:31) D-Dimer (06/03/16 16:31) Act Partial Throm Time (Ptt) (06/03/16 16:31) Prothrombin Time / Inr (Pt) (06/03/16 16:31) Magnesium (Mg) (06/03/16 16:31) Ckmb (Isoenzyme) Profile (06/03/16 16:31) Troponin I (06/03/16 16:31) Urinalysis - C+S If Indicated (06/03/16 16:31) Iv Access Insert/Monitor (06/03/16 16:31) Electrocardiogram (06/03/16 16:31) Ecg Monitoring (06/03/16 16:31) Oximetry (06/03/16 16:31) Oxygen Administration (06/03/16 16:31) Chest, Single Ap (06/03/16 16:31) Us Leg Venous Doppler (06/03/16 16:31) Sodium Chloride 0.9% Flush (Ns Flush) (06/03/16 16:45) Albuterol-Ipratropium Neb (Duoneb Neb) (06/03/16 16:45) Lactic Acid Sepsis Protocol (06/03/16 17:54) Blood Culture (06/03/16 17:54) Azithromycin Inj (Zithromax Inj) (06/03/16 17:54) Cefepime Inj (Maxipime Inj) (06/03/16 17:54) Ct Pulmonary Angiogram (06/03/16 ) Iohexol 350 Inj (Omnipaque 350 Inj) (06/03/16 20:28) Labs Laboratory Tests Test 06/03/16 06/03/16 18:10 19:55 Prothrombin Time 11.5 SEC Prothromb Time International 1.0 RATIO Ratio Activated Partial 29.6 SEC Thromboplast Time D-Dimer Quantitative (PE/DVT) 2.61 MG/L FEU Sodium Level 143 MEQ/L Potassium Level 4.7 MEQ/L Chloride Level 106 MEQ/L Carbon Dioxide Level 27.0 MEQ/L Anion Gap 10 MEQ/L Blood Urea Nitrogen 22 MG/DL Creatinine 0.75 MG/DL Estimat Glomerular Filtration 99 ML/MIN Rate Random Glucose 96 MG/DL Lactic Acid Level 1.8 mmol/L Calcium Level 8.7 MG/DL Magnesium Level 2.4 MG/DL Total Creatine Kinase 99 U/L Troponin I 0.03 NG/ML B-Type Natriuretic Peptide 303 PG/ML White Blood Count 13.0 TH/MM3 Red Blood Count 2.95 MIL/MM3 Hemoglobin 9.0 GM/DL Hematocrit 27.4 % Mean Corpuscular Volume 92.9 FL Mean Corpuscular Hemoglobin 30.4 PG Mean Corpuscular Hemoglobin 32.7 % Concent Red Cell Distribution Width 15.5 % Platelet Count 505 TH/MM3 Mean Platelet Volume 8.9 FL Neutrophils (%) (Auto) 95.9 % Lymphocytes (%) (Auto) 1.8 % Monocytes (%) (Auto) 2.2 % Eosinophils (%) (Auto) 0.0 % Basophils (%) (Auto) 0.1 % Neutrophils # (Auto) 12.4 TH/MM3 Lymphocytes # (Auto) 0.2 TH/MM3 Monocytes # (Auto) 0.3 TH/MM3 Eosinophils # (Auto) 0.0 TH/MM3 Basophils # (Auto) 0.0 TH/MM3 CBC Comment DIFF FINAL Differential Comment MDM Medical Decision Making Medical Screen Exam Complete: Yes Emergency Medical Condition: Yes Medical Record Reviewed: Yes Differential Diagnosis Pneumonia versus PE versus CHF versus DVT Narrative Course 81-year-old male presents to emergency department for evaluation of worsening shortness of breath. Patient is in rehabilitation currently following an ORIF of the left hip. Coarse breath sounds. O2 saturation on room air is 86%. Patient is placed on oxygen 2 L nasal cannula and after DuoNeb treatment, oxygen saturation increases to 96%. CBC results leukocytosis of 13 with a left shift. Neutrophil count was 12.4. BMP is with a BUN of 22. BNP is 303. Lactic acid is 1.8. Ultrasound of the lower extremity is negative for DVT. Chest x-ray shows scattered patchy opacity is consistent with pneumonia. Is given Zosyn and azithromycin IV. D- dimer is 2.[address] pulmonary angiogram results no evidence for PE, multilobar validation likely pneumonia. Small right and tiny left pleural effusion. I discussed with patient with my attending physician Dr. Chaney. Patient needs to be admitted. A call has been placed to [facility] for admission. Diagnosis Primary Impression: Pneumonia Qualified Code: J18.9 - Pneumonia due to infectious organism, unspecified laterality, unspecified part of lung Additional Impression: Dyspnea Qualified Code: R06.02 - Shortness of breath Admitting Information Admitting Physician Requests: Admit Condition: Stable EmilianoKarishma DE JESUS Jun 03, 2016 16:36
[2016-06-03] MEDS ORDERED: SODIUM CHLORIDE 0.9% FLUSH 5 ML FLUSH IVF PRN (16:45)
[2016-06-03 17:00] VITALS: BP 142/68; PULSE 92; RESP 22; TEMP 98.3; O2SAT 92
--- NOTE | 2016-06-03 17:29 | RADRPT ---
EXAM DATE/TIME: 06/03/2016 17:13 [facility] COMPARISON: No previous studies available for comparison. INDICATIONS : Left lower extremity pain. MEDICAL HISTORY : Carcinoma, prostate. Renal calculi. Osteoporosis. Renal disease. Left foot edema. SURGICAL HISTORY : ESWL. Orthopedic surgery, right knee. Back surgery. ENCOUNTER: Initial ACUITY: 1 day PAIN SCORE: 6/10 LOCATION: Left leg. TECHNIQUE: Venous ultrasound of the leg was performed from the inguinal ligament to the proximal calf. Real-liza e, color Doppler and spectral tracing, compression and augmentation techniques were used. FINDINGS: There is normal compressibility of the deep venous system from the inguinal region to the proximal ca lf. No echogenic clot is seen in the lumen of the common femoral, femoral, popliteal, and posterior tibial veins. There is a normal response of the venous system to proximal and distal augmentation an d respiration. CONCLUSION: No evidence of deep venous thrombosis within the left lower extremity. Jermain Diggs MD on June 03, 2016 at 17:27 Board Certified Radiologist. This report was verified electronically.
--- NOTE | 2016-06-03 17:53 | RADRPT ---
EXAM DATE/TIME: 06/03/2016 17:40 [facility] COMPARISON: CHEST SINGLE AP, May 23, 2016, 6:31. INDICATIONS : Short of breath and cough for 2 days. MEDICAL HISTORY : None. SURGICAL HISTORY : Kyphoplasty. ENCOUNTER: Initial ACUITY: 2 days PAIN SCORE: 2/10 LOCATION: Bilateral chest FINDINGS: Patchy opacity is noted throughout the lungs (right worse than left) consistent with pneumonia or asy mmetric pulmonary edema. Clinical correlation is recommended. The heart is stable. CONCLUSION: Patchy opacities bilaterally (right worse than left) consistent with pneumonia versus asymmetric pulm onary edema. Clinical correlation is recommended. Jermain Diggs MD on June 03, 2016 at 17:48 Board Certified Radiologist. This report was verified electronically.
[2016-06-03] MEDS ORDERED: CEFEPIME INJ 2,000 MG in SODIUM CHLORIDE 0.9% INJ 100 ML IV STA (17:54)
[2016-06-03] MEDS ORDERED: AZITHROMYCIN INJ 500 MG in SODIUM CHLOR 0.9% 250 ML INJ 250 ML IV STA (17:54)
[2016-06-03] MEDS: RESP: ALBUTEROL 2.5 MG/IPRATROPIUM 0.5 MG NEB (SCH) INH (18:00)
[2016-06-03 18:37] VITALS: BP 142/68; PULSE 92; RESP 22; TEMP 98.3; O2SAT 94
[2016-06-03 19:13] LABS: APTT (PATIENT) 29.6 SEC (24.3-30.1); PROTHROMBIN TIME - PATIENT 11.5 SEC (9.8-11.6)
[2016-06-03] MEDS ORDERED: METO25TA3 PO (19:51)
[2016-06-03] MEDS ORDERED: ALPR.25 PO (19:51)
[2016-06-03 19:58] LABS: MAGNESIUM 2.4 MG/DL (1.5-2.5); POTASSIUM 4.7 MEQ/L (3.5-5.1)
[2016-06-03 20:04] VITALS: BP 127/61; PULSE 80; RESP 26; TEMP 98.4; O2SAT 90
[2016-06-03] MEDS ORDERED: IOHEXOL 350 MG/ML 10 ML VIAL (for RAD DIAG) IV ONE (20:28)
[2016-06-03 20:33] LABS: AUTOMATED NEUTROPHIL # 12.4 TH/MM3 (1.8-7.7); BASOPHIL % 0.1 % (0.0-2.0); HEMATOCRIT 27.4 % (39.0-51.0); HEMO FLAGS DIFF FINAL; LYMPH % 1.8 % (9.0-44.0); LYMPHOCYTE # 0.2 TH/MM3 (1.0-4.8); MEAN CELL VOLUME 92.9 FL (80.0-100.0); MEAN CORPUSCULAR HEMOGLOBIN 30.4 PG (27.0-34.0); MEAN CORPUSCULAR HGB CONC 32.7 % (32.0-36.0); MONO % 2.2 % (0.0-8.0); NEUT % 95.9 % (16.0-70.0); PLATELET COUNT 505 TH/MM3 (150-450); RED BLOOD COUNT 2.95 MIL/MM3 (4.50-5.90); RED CELL DISTRIBUTION WIDTH 15.5 % (11.6-17.2)
--- NOTE | 2016-06-03 20:47 | RADRPT ---
EXAM DATE/TIME: 06/03/2016 20:25 [facility] COMPARISON: CHEST SINGLE AP, June 03, 2016, 17:40. INDICATIONS : Shortness of breath today; evaluate for pulmonary embolism. IV CONTRAST: 75 cc Omnipaque 350 (iohexol) IV RADIATION DOSE: 21.72 CTDIvol (mGy) MEDICAL HISTORY : Carcinoma, prostate. SURGICAL HISTORY : None. ENCOUNTER: Initial ACUITY: 1 day PAIN SCALE: 0/10 LOCATION: chest TECHNIQUE: Volumetric scanning of the chest was performed using a pulmonary embolism protocol MIP images were re constructed. Using automated exposure control and adjustment of the mA and/or kV according to patien t size, radiation dose was kept as low as reasonably achievable to obtain optimal diagnostic quality images. FINDINGS: PULMONARY ARTERIES: No filling defects are seen in the pulmonary arteries through the segmental level. LUNGS: There is multifocal areas of consolidation noted within the posterior right upper lobe, throughout th e right lower lobe and left lower lobe. Minimal patchy densities right middle lobe. No pneumothorax. No concerning pulmonary nodule is visualized. PLEURAE: There is a small right and tiny left pleural effusion. MEDIASTINUM: There is good visualization of the great vessels of the middle mediastinum. No evidence of mediastin al or hilar adenopathy/mass. MUSCULOSKELETAL: Within normal limits for patient age. MISCELLANEOUS: The visualized upper abdominal organs demonstrate no acute abnormality. CONCLUSION: 1. No evidence for pulmonary embolism. 2. Multilobar consolidation likely pneumonia. 3. Small right and tiny left pleural effusion. Mac Garcia MD on June 03, 2016 at 20:42 Board Certified Radiologist. This report was verified electronically.
--- NOTE | 2016-06-03 20:52 | PD ---
Physical Exam Narrative GENERAL: ill appearing, well-developed patient. SKIN: Warm and dry. HEAD: Normocephalic and atraumatic. EYES: No injection or drainage. ENT: No nasal drainage noted. NECK: Supple, trachea midline. CARDIOVASCULAR: Regular rate and rhythm RESPIRATORY:No accessory muscle use. NEUROLOGICAL: Awake. Moves all extremities. Normal speech. Data Data Last Documented VS Vital Signs Date Time Temp Pulse Resp B/P Pulse Ox O2 Delivery O2 Flow Rate FiO2 06/03/16 20:04 98.4 80 26 127/61 90 Nasal Cannula 4 Orders Complete Blood Count With Diff (06/03/16 16:31) Basic Metabolic Panel (Bmp) (06/03/16 16:31) B-Type Natriuretic Peptide (06/03/16 16:31) D-Dimer (06/03/16 16:31) Act Partial Throm Time (Ptt) (06/03/16 16:31) Prothrombin Time / Inr (Pt) (06/03/16 16:31) Magnesium (Mg) (06/03/16 16:31) Ckmb (Isoenzyme) Profile (06/03/16 16:31) Troponin I (06/03/16 16:31) Urinalysis - C+S If Indicated (06/03/16 16:31) Iv Access Insert/Monitor (06/03/16 16:31) Electrocardiogram (06/03/16 16:31) Ecg Monitoring (06/03/16 16:31) Oximetry (06/03/16 16:31) Oxygen Administration (06/03/16 16:31) Chest, Single Ap (06/03/16 16:31) Us Leg Venous Doppler (06/03/16 16:31) Sodium Chloride 0.9% Flush (Ns Flush) (06/03/16 16:45) Albuterol-Ipratropium Neb (Duoneb Neb) (06/03/16 16:45) Lactic Acid Sepsis Protocol (06/03/16 17:54) Blood Culture (06/03/16 17:54) Azithromycin Inj (Zithromax Inj) (06/03/16 17:54) Cefepime Inj (Maxipime Inj) (06/03/16 17:54) Ct Pulmonary Angiogram (06/03/16 ) Iohexol 350 Inj (Omnipaque 350 Inj) (06/03/16 20:28) Labs Laboratory Tests Test 06/03/16 06/03/16 18:10 19:55 Prothrombin Time 11.5 SEC Prothromb Time International 1.0 RATIO Ratio Activated Partial 29.6 SEC Thromboplast Time D-Dimer Quantitative (PE/DVT) 2.61 MG/L FEU Sodium Level 143 MEQ/L Potassium Level 4.7 MEQ/L Chloride Level 106 MEQ/L Carbon Dioxide Level 27.0 MEQ/L Anion Gap 10 MEQ/L Blood Urea Nitrogen 22 MG/DL Creatinine 0.75 MG/DL Estimat Glomerular Filtration 99 ML/MIN Rate Random Glucose 96 MG/DL Lactic Acid Level 1.8 mmol/L Calcium Level 8.7 MG/DL Magnesium Level 2.4 MG/DL Total Creatine Kinase 99 U/L Troponin I 0.03 NG/ML B-Type Natriuretic Peptide 303 PG/ML White Blood Count 13.0 TH/MM3 Red Blood Count 2.95 MIL/MM3 Hemoglobin 9.0 GM/DL Hematocrit 27.4 % Mean Corpuscular Volume 92.9 FL Mean Corpuscular Hemoglobin 30.4 PG Mean Corpuscular Hemoglobin 32.7 % Concent Red Cell Distribution Width 15.5 % Platelet Count 505 TH/MM3 Mean Platelet Volume 8.9 FL Neutrophils (%) (Auto) 95.9 % Lymphocytes (%) (Auto) 1.8 % Monocytes (%) (Auto) 2.2 % Eosinophils (%) (Auto) 0.0 % Basophils (%) (Auto) 0.1 % Neutrophils # (Auto) 12.4 TH/MM3 Lymphocytes # (Auto) 0.2 TH/MM3 Monocytes # (Auto) 0.3 TH/MM3 Eosinophils # (Auto) 0.0 TH/MM3 Basophils # (Auto) 0.0 TH/MM3 CBC Comment DIFF FINAL Differential Comment MDM Supervised Visit with BRET: Yes Interpretation(s) CBC & BMP Diagram 06/03/16 18:10 06/03/16 19:55 Last 24 hours Impressions Lower Extremity Ultrasound 06/03/16 1631 Signed Impressions: Service Date/Time: Friday, June 03, 2016 17:13 - CONCLUSION: No evidence of deep venous thrombosis within the left lower extremity. Jermain Diggs MD Chest X-Ray 06/03/16 1631 Signed Impressions: Service Date/Time: Friday, June 03, 2016 17:40 - CONCLUSION: Patchy opacities bilaterally (right worse than left) consistent with pneumonia versus asymmetric pulmonary edema. Clinical correlation is recommended. Jermain Diggs MD CT Angiography 06/03/16 0000 Signed Impressions: Service Date/Time: Friday, June 03, 2016 20:25 - CONCLUSION: 1. No evidence for pulmonary embolism. 2. Multilobar consolidation likely pneumonia. 3. Small right and tiny left pleural effusion. Mac Garcia MD Narrative Course I, Dr. murphy, have reviewed the advance practice practitioner's documentation and am in agreement, met with the patient face to face, made the diagnosis, and the medical decision making was done by me. *My assessment and Findings: A 81-year-old male presents with findings of pneumonia. He will be admitted to the hospital for further care. He has had increasing oxygen requirements but is stable and nasal cannulation on second reevaluation. No indication for escalation of oxygenation at my departure Sepsis Criteria SIRS Criteria (2 or more): RR > 20 or PaCO2 < 32, WBC > 78801, < 4000 or > 10 % bands Sepsis Criteria (SIRS+source): Infect source susp/known Physician Communication Physician Communication doctors hospital to admit Diagnosis Primary Impression: Pneumonia Qualified Code: J18.9 - Pneumonia due to infectious organism, unspecified laterality, unspecified part of lung Additional Impressions: Anemia Qualified Code: D64.9 - Anemia, unspecified type Sepsis Qualified Code: A41.9 - Sepsis, due to unspecified organism Hypoxia Admitting Information Admitting Physician Requests: Admit Anneliese Murphy MD Jun 03, 2016 20:52
[2016-06-03] MEDS ORDERED: SODIUM CHLORIDE 0.9% FLUSH 5 ML FLUSH FLUSH PRN (21:15)
[2016-06-03] MEDS ORDERED: NALOXONE HCL 0.4 MG/ML AMP IV PRN (21:15)
[2016-06-03] MEDS ORDERED: ONDANSETRON HCL 4 MG/2 ML VIAL IVP PRN (21:15)
[2016-06-03] MEDS ORDERED: ALPRAZolam 0.25 MG TAB PO PRN (21:30)
[2016-06-03 22:06] VITALS: O2SAT 95
[2016-06-04] VITALS (12 sets, daily range): BP systolic 140–169; BP diastolic 61–94; PULSE 67–84; RESP 18–24; TEMP 96.7–97.9; O2SAT 90–98
--- NOTE | 2016-06-04 01:27 | HHI.HP ---
[facility] Catalino Mireles MD Admission Diagnosis pneumonia Diagnoses: (1) Pneumonia (2) Dyspnea (3) Leukocytosis (4) s/p left femoral orif (5) Anemia (6) Elevated brain natriuretic peptide (BNP) level Chief Complaint: Shortness of breath Travel History International Travel<30 Days: No Contact w/Intl Traveler <30 Da: No Traveled to Known Affected Are: No History of Present Illness Mr. Lundberg is an 81 year-old male with a past medical history of prostate CA, osteoporosis, T7 compression fracture, and mechanical fall at home with subsequent left hip femoral neck fracture with ORIF by Dr. Cameron on 05/24/2016 ( discharged 05/26/16 to rehab) who presented to ER from skilled rehabilitation facility for evaluation of shortness of breath. D-dimer was elevated at 2.61. CT angiogram negative for PE. Multilobar consolidation likely licensing representative of pneumonia seen as well as small right and tiny left pleural effusions. Left lower extremity Doppler demonstrates no DVT. Chest x-ray shows patchy opacities bilaterally with right worse than left consistent with pneumonia. BNP elevated at 303. The patient is having difficulty providing medical history and answering ROS questions. Therefore, history taken from electronic medical record and discussions with staff members. . Review of Systems ROS Limitations: Altered Mental Status, Poor Historian Respiratory: COMPLAINS OF: Cough Past Family Social History Past Medical History Thoracic compression fracture with retropulsion treated non-surgically; followed by Dr. Munoz as an outpatient with last visit 07/29/15 Prostate cancer Osteoporosis Left femoral neck Fx on 05/23/17 s/p ORIF . Past Surgical History Extracorporeal shockwave lithotripsy Left femoral neck ORIF 05/24/16 . Reported Medications Reported Meds & Active Scripts Active Colace (Docusate Sodium) 100 Mg Cap 100 Mg PO BID PRN [place] (Hydrocodone-Acetaminophen) 5-325 mg Tab 1 Tab PO Q4H PRN Lovenox Inj (Enoxaparin Sodium) 40 Mg/0.4 Ml Syr 40 Mg SQ Q24H 14 Days Reported Xanax (Alprazolam) 0.25 Mg Tab 0.25 Mg PO Q8H PRN Metoprolol Tartrate 25 Mg Tab 25 Mg PO BID . Allergies: Coded Allergies: No Known Allergies (Unverified , 06/03/16) Active Ordered Medications Current Medications IV Flush (NS Flush) 2 ml UNSCH PRN IVF FLUSH AFTER USING IV ACCESS; Start 06/03 at 16:45; Stop 06/03/16 at 21:19; Status DC Albuterol/ Ipratropium 1 ampule 1 ampule Q15M INH Last administered on 18:00; Start 06/03/16 at 16:45; Stop 06/03/16 at 17:01; Status DC Azithromycin 500 mg/Sodium Chloride 250 ml @ 250 mls/hr ONCE STAT IV Last administered on 06/03/16 20:59; Start 06/03/16 at 17:54; Stop 06/03/16 at 18:53 ; Status DC Cefepime HCl/ Sodium Chloride (Maxipime Inj/NS Inj) 100 ml @ 200 mls/hr ONCE STAT IV Last administered on 06/03/16 20:07; Start 06/03/16 at 17:54; Stop 04/09 at 18:23; Status DC Iohexol (Omnipaque 350 Inj) 75 ml STK-MED ONCE IV Last administered on 20:28; Start 06/03/16 at 20:28; Stop 06/03/16 at 20:29; Status DC IV Flush (NS Flush) 2 ml UNSCH PRN FLUSH FLUSH AFTER USING IV ACCESS; Start 04/09 at 21:15 IV Flush (NS Flush) 2 ml BID FLUSH ; Start 06/04/16 at 09:00 Ondansetron HCl (Zofran Inj) 4 mg Q6H PRN IVP NAUSEA OR VOMITING; Start at 21:15 Enoxaparin Sodium (Lovenox Inj) 40 mg Q24H SQ ; Start 06/04/16 at 09:00 Naloxone HCl (Narcan Inj) 0.4 mg UNSCH PRN IV SEE LABEL COMMENTS; Start at 21:15 Albuterol/ Ipratropium 1 ampule 1 ampule Q4HR NEB PRN NEB wheezing; Start 06/03 at 21:30 Cefepime HCl/ Sodium Chloride (Maxipime Inj/NS Inj) 100 ml @ 200 mls/hr Q12H IV ; Start 06/04/16 at 08:00 Alprazolam (Xanax) 0.25 mg Q8H PRN PO ANXIETY; Start 06/03/16 at 21:30 Acetaminophen/ Hydrocodone Bitart ([place] 5-325 Mg) 1 tab Q4H PRN PO PAIN; Start 06/03/16 at 21:30 Metoprolol Tartrate 25 mg 25 mg BID PO ; Start 06/04/16 at 09:00 Pharmacy Profile Note 0 ml @ 0 mls/hr UNSCH OTHER ; Start 06/04/16 at 01:45 Vancomycin HCl/ Sodium Chloride (Vancomycin Inj/ NS 500 ml Inj) 515 ml @ 257.5 mls/ hr ONCE ONCE IV Last administered on 06/04/16t 02:31; Start 06/04/16 at 02:00; Stop 06/04/16 at 03:59 . Family History Patient unable to provide a reliable family history due to confusion . Social History unable to obtain due to confusion . Physical Exam Vital Signs Vital Signs Date Time Temp Pulse Resp B/P Pulse Ox O2 Delivery O2 Flow Rate FiO2 06/04/16 00:16 67 22 141/65 94 Nasal Cannula 4 06/03/16 22:06 95 Nasal Cannula 5.00 06/03/16 20:04 98.4 80 26 127/61 90 Nasal Cannula 4 06/03/16 19:46 82 16 88 Nasal Cannula 4 06/03/16 18:37 97 Nasal Cannula 4 06/03/16 18:37 98.3 92 22 142/68 94 Nasal Cannula 4 06/03/16 17:00 98.3 92 22 142/68 92 Physical Exam GENERAL: This is a frail elderly male patient, in no apparent distress. SKIN: No rashes, ecchymoses or lesions. Cool and dry. HEAD: Atraumatic. Normocephalic. EYES: No scleral icterus. No injection or drainage. ENT: Nose without bleeding, purulent drainage. NECK: Trachea midline. No JVD or lymphadenopathy. CARDIOVASCULAR: Regular rate and rhythm without murmurs, gallops, or rubs. RESPIRATORY: Breath sounds diminished at bases; equal bilaterally. No wheezes, rales, or rhonchi. GASTROINTESTINAL: Abdomen soft, non-tender, nondistended. No guarding. MUSCULOSKELETAL: Extremities without clubbing, cyanosis, or edema. No calf tenderness. NEUROLOGICAL: Awakened for exam. Confused; poor historian. Motor and sensory grossly within normal limits. Normal speech. . Laboratory Laboratory Tests Test 06/03/16 06/03/16 18:10 19:55 Prothrombin Time 11.5 Prothromb Time International 1.0 Ratio Activated Partial 29.6 Thromboplast Time D-Dimer Quantitative (PE/DVT) 2.61 Sodium Level 143 Potassium Level 4.7 Chloride Level 106 Carbon Dioxide Level 27.0 Anion Gap 10 Blood Urea Nitrogen 22 Creatinine 0.75 Estimat Glomerular Filtration 99 Rate Random Glucose 96 Lactic Acid Level 1.8 Calcium Level 8.7 Magnesium Level 2.4 Total Creatine Kinase 99 Troponin I 0.03 B-Type Natriuretic Peptide 303 White Blood Count 13.0 Red Blood Count 2.95 Hemoglobin 9.0 Hematocrit 27.4 Mean Corpuscular Volume 92.9 Mean Corpuscular Hemoglobin 30.4 Mean Corpuscular Hemoglobin 32.7 Concent Red Cell Distribution Width 15.5 Platelet Count 505 Mean Platelet Volume 8.9 Neutrophils (%) (Auto) 95.9 Lymphocytes (%) (Auto) 1.8 Monocytes (%) (Auto) 2.2 Eosinophils (%) (Auto) 0.0 Basophils (%) (Auto) 0.1 Neutrophils # (Auto) 12.4 Lymphocytes # (Auto) 0.2 Monocytes # (Auto) 0.3 Eosinophils # (Auto) 0.0 Basophils # (Auto) 0.0 CBC Comment DIFF FINAL Differential Comment Date/Time Procedure Status Source Growth 06/03/16 18:30 Aerobic Blood Culture Received Blood Peripheral Pending 06/03/16 18:30 Anaerobic Blood Culture Received Blood Peripheral Pending Result Diagram: 06/03/16195406/03/161809 Imaging Last Impressions Lower Extremity Ultrasound 06/03/16 1631 Signed Impressions: Service Date/Time: Friday, June 03, 2016 17:13 - CONCLUSION: No evidence of deep venous thrombosis within the left lower extremity. Jermain Diggs MD Chest X-Ray 06/03/16 1631 Signed Impressions: Service Date/Time: Friday, June 03, 2016 17:40 - CONCLUSION: Patchy opacities bilaterally (right worse than left) consistent with pneumonia versus asymmetric pulmonary edema. Clinical correlation is recommended. Jermain Diggs MD CT Angiography 06/03/16 0000 Signed Impressions: Service Date/Time: Friday, June 03, 2016 20:25 - CONCLUSION: 1. No evidence for pulmonary embolism. 2. Multilobar consolidation likely pneumonia. 3. Small right and tiny left pleural effusion. Mac Garcia MD Assessment and Plan Problem List: (1) Pneumonia ICD Code: J18.9 Status: Acute (2) Leukocytosis ICD Code: D72.829 Status: Acute (3) s/p left femoral orif Status: Acute (4) Anemia ICD Code: D64.9 Status: Acute (5) Elevated brain natriuretic peptide (BNP) level ICD Code: R79.89 Status: Acute Assessment and Plan Mr. Lundberg is an 81 year-old male with a past medical history of prostate CA, osteoporosis, and mechanical fall at home with subsequent left hip femoral neck fracture with ORIF by Dr. Cameron on 05/24/2016 (discharged 05/26/16 to rehab) who presented to ER from [facility] rehabilitation facility for evaluation of shortness of breath. Troponin I is 0.03, total creatinine kinase is 99 D-dimer was elevated at 2.61. CT angiogram negative for PE. Multilobular consolidation likely licensing representative of pneumonia seen as well as small right and tiny left pleural effusions. Left lower extremity Doppler demonstrates no DVT. Chest x-ray shows patchy opacities bilaterally with right worse than left consistent with pneumonia. Shortness of breath Multilobular pneumonia - Cefepime 2 g IV every 12 hours - Duo nebs every 4 hours as needed for wheezing - Supplemental oxygen via nasal cannula and titrated to maintain oxygen saturation greater than 92% - Vital signs every 4 hours Leukocytosis with neutrophilia likely secondary to infection - WBC 13.0 on admission - Repeat CBC in a.m. and follow trends - Lactic acid 1.8 Status post left femoral neck ORIF - [place] 5/325 every 4 hours when necessary by mouth for pain - Physical therapy consultation Anemia - Hemoglobin 9.0/hematocrit 27.4 - stable compared to labs 05/26/2016 - Repeat CBC in a.m. and follow trends - Transfuse if necessary - Continuous cardiac telemetry to monitor for cardiac arrhythmias BNP elevation - BNP 303 on admission - Use caution if IV fluid hydration is needed DVT prophylaxis - Lovenox 40 mg subcutaneous every 24 hours Written by Sandra Ortega, acting as scribe for Dr. Osorio on 06/04/16 at 01:25. The documentation accurately reflects the work performed [id number] by me on at 0125 Discussed Condition With ER NEAL and RN Physician Certification 2 Midnight Certification Type: Admission for Inpatient Services Order for Inpatient Services The services are ordered in accordance with Medicare regulations or non- Medicare payer requirements, as applicable. In the case of services not specified as inpatient-only, they are appropriately provided as inpatient services in accordance with the 2-midnight benchmark. Estimated LOS (days): 3 days is the estimated time the patient will need to remain in the hospital, assuming treatment plan goals are met and no additional complications. Post-Hospital Plan: Not yet determined Problem Qualifiers (1) Pneumonia: Qualified Code: J18.9 - Pneumonia due to infectious organism, unspecified laterality, unspecified part of lung (2) Dyspnea: Qualified Code: R06.02 - Shortness of breath (3) Anemia: Qualified Code: D64.9 - Anemia, unspecified type Sandra Ortega Jun 04, 2016 01:27 Ryan Osorio MD Jun 04, 2016 08:39
[2016-06-04] MEDS ORDERED: Vancomycin Consult Pharmacy 1 EA OTHER SCH (01:45)
[2016-06-04] MEDS ORDERED: VANCOMYCIN 1,500 MG/NS 500 ML IV ONE ×2 (02:00)
[2016-06-04 06:16] LABS: BICARBONATE 27.1 MEQ/L (21.0-32.0); POTASSIUM 3.8 MEQ/L (3.5-5.1)
[2016-06-04 06:17] LABS: BASOPHIL % 0.2 % (0.0-2.0); EOSINOPHIL % 0.1 % (0.0-4.0); HEMATOCRIT 27.1 % (39.0-51.0); HEMO FLAGS DIFF FINAL; LYMPH % 3.7 % (9.0-44.0); LYMPHOCYTE # 0.4 TH/MM3 (1.0-4.8); MEAN CORPUSCULAR HEMOGLOBIN 30.2 PG (27.0-34.0); MEAN CORPUSCULAR HGB CONC 32.5 % (32.0-36.0); MONO % 2.6 % (0.0-8.0); NEUT % 93.4 % (16.0-70.0); PLATELET COUNT 545 TH/MM3 (150-450); RED BLOOD COUNT 2.91 MIL/MM3 (4.50-5.90); RED CELL DISTRIBUTION WIDTH 15.9 % (11.6-17.2); WHITE BLOOD COUNT 11.7 TH/MM3 (4.0-11.0)
[2016-06-04] MEDS: CEFEPIME INJ 2,000 MG in SODIUM CHLORIDE 0.9% INJ 100 ML IV SCH ×2 (08:28→19:38)
[2016-06-04] MEDS: METOPROLOL TARTRATE 25 MG TAB PO SCH ×2 (09:32→20:02)
[2016-06-04] MEDS: SODIUM CHLORIDE 0.9% FLUSH 5 ML FLUSH FLUSH SCH ×2 (09:32→20:33)
[2016-06-04] MEDS: ENOXAPARIN SODIUM 40 MG/0.4 ML SYRINGE SQ SCH (09:32)
--- NOTE | 2016-06-04 10:54 | EKG ---
Date Performed: 06/03/2016 Time Performed: 18:42:02 PTAGE: 81 years EKG: Sinus rhythm NONSPECIFIC T-WAVE ABNORMALITY BORDERLINE ECG PREVIOUS TRACING : 05/23/2016 06.06 Compared to prior tracing no significant change DOCTOR: Isaiah Mathew Interpretating Date/Time 06/04/2016 10:53:02
[2016-06-04] MEDS: ACETAMINOPHEN/HYDROcodone 325 MG/5 MG TAB PO PRN (15:17)
[2016-06-04] MEDS: VANCOMYCIN 1,500 MG/NS 500 ML IV SCH ×2 (20:33)
[2016-06-05] VITALS (8 sets, daily range): BP systolic 154–165; BP diastolic 72–87; PULSE 60–80; RESP 18–22; TEMP 96.5–97.6; O2SAT 90–93
[2016-06-05] MEDS: SODIUM CHLORIDE 0.9% FLUSH 5 ML FLUSH FLUSH SCH ×2 (07:56→20:26)
[2016-06-05] MEDS: METOPROLOL TARTRATE 25 MG TAB PO SCH ×3 (07:56→20:31)
[2016-06-05] MEDS: CEFEPIME INJ 2,000 MG in SODIUM CHLORIDE 0.9% INJ 100 ML IV SCH ×2 (07:56→20:31)
[2016-06-05] MEDS: ENOXAPARIN SODIUM 40 MG/0.4 ML SYRINGE SQ SCH (07:57)
[2016-06-05] MEDS: MORPHINE SULFATE 4 MG/ML INJ IV PUSH PRN (07:58)
[2016-06-05] MEDS ORDERED: FUROSEMIDE 20 MG/2 ML VIAL IV PUSH ONE (10:30)
--- NOTE | 2016-06-05 10:36 | HHI.PR ---
Subjective Remarks Patient seen and evaluated today in follow-up for likely aspiration pneumonia. Leukocytosis improved. Tolerating current IV cefepime. Speech therapy for follow-up appreciated. Objective Vitals Vital Signs Date Time Temp Pulse Resp B/P Pulse Ox O2 Delivery O2 Flow Rate FiO2 06/05/16 08:00 96.8 70 20 165/74 93 06/05/16 07:30 92 Nasal Cannula 4.00 06/05/16 04:00 97.1 71 18 162/87 90 06/05/16 00:00 96.5 72 18 161/84 92 06/04/16 20:20 91 Nasal Cannula 4.00 06/04/16 20:00 97.9 76 18 169/94 90 06/04/16 16:00 96.7 72 22 161/72 91 06/04/16 14:05 93 Nasal Cannula 4.00 06/04/16 13:45 96.8 67 22 163/77 93 06/04/16 12:44 68 20 144/61 94 Nasal Cannula 4 06/04/16 10:45 74 18 166/74 96 Nasal Cannula 4 I/O 06/04/16 06/04/16 06/04/16 06/05/16 06/05/16 06/05/16 07:00 15:00 23:00 07:00 15:00 23:00 Intake Total 700 ml 360 ml Balance 700 ml 360 ml Intake Oral 0 ml 360 ml IV Total 700 ml # Voids 2 4 # Bowel Movements 0 Result Diagram: 06/04/16 0503 06/04/16 0503 Imaging Last Impressions Lower Extremity Ultrasound 06/03/16 1631 Signed Impressions: Service Date/Time: Friday, June 03, 2016 17:13 - CONCLUSION: No evidence of deep venous thrombosis within the left lower extremity. Jermain Diggs MD Chest X-Ray 06/03/16 1631 Signed Impressions: Service Date/Time: Friday, June 03, 2016 17:40 - CONCLUSION: Patchy opacities bilaterally (right worse than left) consistent with pneumonia versus asymmetric pulmonary edema. Clinical correlation is recommended. Jermain Diggs MD CT Angiography 06/03/16 0000 Signed Impressions: Service Date/Time: Friday, June 03, 2016 20:25 - CONCLUSION: 1. No evidence for pulmonary embolism. 2. Multilobar consolidation likely pneumonia. 3. Small right and tiny left pleural effusion. Mac Garcia MD Objective Remarks GENERAL: This is a well-nourished, well-developed patient, in no apparent distress. CARDIOVASCULAR: Regular rate and rhythm without murmurs, gallops, or rubs. RESPIRATORY: Clear to auscultation. Breath sounds equal bilaterally. No wheezes , rales, or rhonchi. GASTROINTESTINAL: Abdomen soft, non-tender, nondistended. Normal active bowel sounds MUSCULOSKELETAL: Extremities without clubbing, cyanosis, or edema. NEURO: Alert & Oriented to person, Procedures None A/P Problem List: (1) Pneumonia ICD Code: J18.9 Status: Acute Plan: Continue with cefepime for now, leukocytosis improved. May be some element of aspiration Continue with modified diet (2) Leukocytosis ICD Code: D72.829 Status: Acute Plan: Improved with current antibiotic regimen (3) s/p left femoral orif Status: Acute Plan: Status post ORIF 05/24, continue with physical therapy (4) Anemia ICD Code: D64.9 Status: Acute Plan: Recheck hemoglobin in a.m., type and screen. Etiology unclear (5) Hypoxia ICD Code: R09.02 Status: Acute Plan: Likely due to pneumonia, continue with oxygen. ABG pending Limits fluids (6) Cognitive impairment ICD Code: R41.89 Status: Acute Plan: Unsure of patient's baseline. We'll discuss with family regarding level of cognitive function Assessment and Plan call placed to spouse and daughter and I left messages Problem Qualifiers (1) Pneumonia: Qualified Code: J18.9 - Pneumonia due to infectious organism, unspecified laterality, unspecified part of lung (2) Anemia: Qualified Code: D64.9 - Anemia, unspecified type Lolita Tyler MD Jun 05, 2016 10:35
[2016-06-05 10:46] LABS: BLOOD GAS BASE EXCESS 1.1 mmol/L (-2-2); BLOOD GAS CARBOXYHEMOGLOBIN 1.9 % (0-4); BLOOD GAS HCO3 25 mmol/L (22-26); BLOOD GAS METHEMOGLOBIN 1.2 % (0-2); BLOOD GAS O2 HGB SATURATION 87 % (90-100); BLOOD GAS OXYGEN CONTENT 10.6 Vol % (12.0-20.0); BLOOD GAS PCO2 36 mmHG (38-42); BLOOD GAS PO2 63 mmHG (61-120); BLOOD GAS TOTAL HGB 8.5 G/DL (12.0-16.0); TEMP CORR TO 98.6
[2016-06-05 10:47] LABS: CRITICAL VALUE YES; DRAW SITE RT RADIAL; LITER FLOW 4 L/M; NUMBER OF ARTERIAL PUNCTURES 1; OXYGEN DEVICE NASAL CANNULA; STAT NO; ULNAR PULSE PRESENT
[2016-06-05] MEDS: RESP: ALBUTEROL 2.5 MG/IPRATROPIUM 0.5 MG NEB (SCH) NEB ×3 (11:27→19:32)
--- NOTE | 2016-06-05 11:46 | RADHPO ---
EXAM DATE/TIME: 06/05/2016 11:11 [facility] COMPARISON: No previous studies available for comparison. INDICATIONS : Altered mental status. RADIATION DOSE: 39.47 CTDIvol (mGy) MEDICAL HISTORY : Carcinoma, prostate. Renal calculi. SURGICAL HISTORY : None. ENCOUNTER: Initial ACUITY: 1 day PAIN SCALE: 0/10 LOCATION: cranial TECHNIQUE: Multiple contiguous axial images were obtained of the head. Using automated exposure control and adj ustment of the mA and/or kV according to patient size, radiation dose was kept as low as reasonably a chievable to obtain optimal diagnostic quality images. FINDINGS: CEREBRUM: The ventricles are normal for age. No evidence of midline shift, mass lesion, hemorrhage or acute in farction. No extra-axial fluid collections are seen. POSTERIOR FOSSA: The cerebellum and brainstem are intact. The 4th ventricle is midline. The cerebellopontine angle i s unremarkable. EXTRACRANIAL: The visualized portion of the orbits is intact. SKULL: The calvaria is intact. No evidence of skull fracture. CONCLUSION: Normal examination for a patient of this age. Rukhsana Castro MD on June 05, 2016 at 11:44 Board Certified Radiologist. This report was verified electronically.
[2016-06-05] MEDS: VANCOMYCIN 1,500 MG/NS 500 ML IV SCH ×2 (15:07)
[2016-06-06] VITALS (8 sets, daily range): BP systolic 129–162; BP diastolic 66–93; PULSE 55–77; RESP 12–24; TEMP 96.5–98.6; O2SAT 92–97
[2016-06-06] MEDS ORDERED: PHARMACY ORDERED LAB XX ONE (07:45)
[2016-06-06 07:48] LABS: BASOPHIL # 0.1 TH/MM3 (0-0.2); BASOPHIL % 0.5 % (0.0-2.0); EOSINOPHIL % 0.1 % (0.0-4.0); HEMATOCRIT 27.4 % (39.0-51.0); LYMPH % 5.3 % (9.0-44.0); MEAN CELL VOLUME 93.3 FL (80.0-100.0); MEAN CORPUSCULAR HEMOGLOBIN 30.6 PG (27.0-34.0); MEAN CORPUSCULAR HGB CONC 32.8 % (32.0-36.0); NEUT % 89.1 % (16.0-70.0); PLATELET COUNT 534 TH/MM3 (150-450); RED BLOOD COUNT 2.94 MIL/MM3 (4.50-5.90); RED CELL DISTRIBUTION WIDTH 15.6 % (11.6-17.2)
[2016-06-06 07:54] LABS: HEMO FLAGS DIFF FINAL
[2016-06-06] MEDS: VANCOMYCIN 1,500 MG/NS 500 ML IV SCH ×2 (08:00)
[2016-06-06 08:08] LABS: CHLORIDE 115 MEQ/L (98-107); POTASSIUM 3.9 MEQ/L (3.5-5.1); SODIUM (NA) 152 MEQ/L (136-145)
[2016-06-06] MEDS: RESP: ALBUTEROL 2.5 MG/IPRATROPIUM 0.5 MG NEB (SCH) NEB ×4 (08:10→19:22)
[2016-06-06 08:11] LABS: ANION GAP 9 MEQ/L (5-15); BICARBONATE 28.1 MEQ/L (21.0-32.0); BLOOD UREA NITROGEN 30 MG/DL (7-18)
[2016-06-06 08:15] LABS: GLOMERULAR FILTRATION RATE 95 ML/MIN (>89)
[2016-06-06] MEDS: ENOXAPARIN SODIUM 40 MG/0.4 ML SYRINGE SQ SCH (09:03)
[2016-06-06] MEDS: SODIUM CHLORIDE 0.9% FLUSH 5 ML FLUSH FLUSH SCH ×2 (09:03→20:39)
[2016-06-06] MEDS: CEFEPIME INJ 2,000 MG in SODIUM CHLORIDE 0.9% INJ 100 ML IV SCH ×2 (09:03→20:45)
[2016-06-06] MEDS: METOPROLOL TARTRATE 25 MG TAB PO SCH ×2 (09:03→20:49)
[2016-06-06 09:35] LABS: TRANSFERRIN IRON PROFILE 124 MG/DL (200-360)
--- NOTE | 2016-06-06 11:59 | HHI.PR ---
Subjective Remarks Patient seen and evaluated today in follow-up for pneumonia and aspiration issues. Much more coherent today and closely due to his baseline. Care plan discussed with family at bedside as well as nursing team. Patient not satisfied with dietary restrictions due to speech therapy recommendations and has not been drinking much fluid. Objective Vitals Vital Signs Date Time Temp Pulse Resp B/P Pulse Ox O2 Delivery O2 Flow Rate FiO2 06/06/16 11:15 96 Nasal Cannula 4.00 06/06/16 08:12 Nasal Cannula 4.00 06/06/16 08:00 97.1 60 24 162/93 97 06/06/16 00:12 98.6 77 16 140/70 93 06/05/16 20:39 97.6 80 18 154/78 93 06/05/16 19:30 92 Nasal Cannula 4.00 06/05/16 16:00 97.6 60 22 160/72 92 06/05/16 12:00 96.7 64 22 162/79 92 I/O 06/05/16 06/05/16 06/05/16 06/06/16 06/06/16 06/06/16 07:00 15:00 23:00 07:00 15:00 23:00 Intake Total 360 ml 1090 ml Balance 360 ml 1090 ml Intake Oral 360 ml 450 ml IV Total 640 ml # Voids 4 3 2 2 # Bowel Movements 0 0 Result Diagram: 06/06/16 0710 06/06/16 0710 Objective Remarks GENERAL: This is a well-nourished, well-developed patient, in no apparent distress. Coughing CARDIOVASCULAR: Regular rate and rhythm without murmurs, gallops, or rubs. RESPIRATORY: Clear to auscultation. Breath sounds equal bilaterally. No wheezes , rales, or rhonchi. GASTROINTESTINAL: Abdomen soft, non-tender, nondistended. Normal active bowel sounds MUSCULOSKELETAL: Extremities without clubbing, cyanosis, or edema. NEURO: Alert & Oriented to person, place and situation Procedures None A/P Problem List: (1) Pneumonia ICD Code: J18.9 Status: Acute Plan: Multi lobar consolidation Continue with cleocin/cefepime/vanco for now, leukocytosis improved still with left shift Vanco held due to high trough (pharmacy to follow) May be some element of aspiration v HHAP Continue with modified diet (2) Leukocytosis ICD Code: D72.829 Status: Acute Plan: Improved with current antibiotic regimen follow trend (3) s/p left femoral orif Status: Acute Plan: Status post ORIF 05/24, continue with physical therapy LMWH (4) Anemia ICD Code: D64.9 Status: Acute Plan: Recheck hemoglobin today is 9.0, stable Etiology shows some iron deficiency and bay be some element of chronic disease add iron/miralx (5) Hypoxia ICD Code: R09.02 Status: Acute Plan: On 4 L Likely due to pneumonia, continue with oxygen. ABG shows significant hypoxemia Received Lasix, low-dose fluids due to dehydration (6) Cognitive impairment ICD Code: R41.89 Status: Acute Plan: Baseline appears to be some difficulty with word finding but cooperative and able to follow instructions without difficulty. Discussed with family (7) Hypernatremia ICD Code: E87.0 Status: Acute Plan: Status post Lasix yesterday, will add some fluids and follow up urine output Assessment and Plan Miralax LMWH Problem Qualifiers (1) Pneumonia: Qualified Code: J18.9 - Pneumonia due to infectious organism, unspecified laterality, unspecified part of lung (2) Anemia: Qualified Code: D64.9 - Anemia, unspecified type Lolita Tyler MD Jun 06, 2016 11:59
[2016-06-06] MEDS: CLINDAMYCIN INJ 600 MG in SODIUM CHLORIDE 0.9% INJ 100 ML IV SCH ×2 (13:00→22:45)
[2016-06-06] MEDS: POLYETHYLENE GLYCOL 17 GM PKG PO SCH (13:20)
[2016-06-06] MEDS: SODIUM CHLOR 0.9% 1000 ML INJ 1,000 ML IV SCH (13:21)
[2016-06-06] MEDS: MORPHINE SULFATE 4 MG/ML INJ IV PUSH PRN ×2 (13:29→21:00)
[2016-06-06] MEDS: RESP: ALBUTEROL 2.5 MG/IPRATROPIUM 0.5 MG NEB (PRN) NEB (23:14)
[2016-06-07] VITALS (9 sets, daily range): BP systolic 107–177; BP diastolic 55–91; PULSE 56–91; RESP 16–20; TEMP 96.4–98.1; O2SAT 91–98
[2016-06-07] MEDS: CLINDAMYCIN INJ 600 MG in SODIUM CHLORIDE 0.9% INJ 100 ML IV SCH ×2 (04:47→15:56)
[2016-06-07] MEDS: MORPHINE SULFATE 4 MG/ML INJ IV PUSH PRN (04:53)
[2016-06-07] MEDS: RESP: ALBUTEROL 2.5 MG/IPRATROPIUM 0.5 MG NEB (SCH) NEB ×4 (07:32→19:35)
[2016-06-07] MEDS: CEFEPIME INJ 2,000 MG in SODIUM CHLORIDE 0.9% INJ 100 ML IV SCH (08:20)
[2016-06-07] MEDS: POLYETHYLENE GLYCOL 17 GM PKG PO SCH (08:23)
[2016-06-07] MEDS: FERROUS SULFATE 325 MG (65 MG ELEMENTAL IRON) TAB PO SCH (08:23)
[2016-06-07] MEDS: ENOXAPARIN SODIUM 40 MG/0.4 ML SYRINGE SQ SCH (08:23)
[2016-06-07] MEDS: METOPROLOL TARTRATE 25 MG TAB PO SCH ×2 (08:23→22:04)
[2016-06-07] MEDS: SODIUM CHLORIDE 0.9% FLUSH 5 ML FLUSH FLUSH SCH ×2 (09:00→21:00)
[2016-06-07 09:23] LABS: HEMATOCRIT 29.9 % (39.0-51.0); MEAN CELL VOLUME 94.8 FL (80.0-100.0); MEAN CORPUSCULAR HGB CONC 32.7 % (32.0-36.0); PLATELET COUNT 549 TH/MM3 (150-450); RED BLOOD COUNT 3.15 MIL/MM3 (4.50-5.90); RED CELL DISTRIBUTION WIDTH 15.6 % (11.6-17.2); WHITE BLOOD COUNT 22.3 TH/MM3 (4.0-11.0)
[2016-06-07 09:36] LABS: HEMO FLAGS AUTO DIFF
--- NOTE | 2016-06-07 09:36 | HHI.PR ---
Subjective Remarks Follow-up for pneumonia. Patient states his cough is better, but shortness of breath is worse. He denies any fevers. RN informs me that the patient may be retaining urine and had little urine output, 150 mL, overnight. Objective Vitals Vital Signs Date Time Temp Pulse Resp B/P Pulse Ox O2 Delivery O2 Flow Rate FiO2 06/07/16 08:00 96.4 70 20 177/91 96 06/07/16 07:34 94 Nasal Cannula 3.00 06/07/16 04:00 98.0 60 18 152/79 91 06/07/16 00:00 97.4 62 16 125/64 92 06/06/16 21:04 96.5 66 12 129/70 93 06/06/16 19:22 92 Nasal Cannula 3.00 06/06/16 16:00 98.2 62 20 134/66 92 06/06/16 15:29 94 Nasal Cannula 3.00 06/06/16 12:00 97.3 55 20 131/70 06/06/16 11:15 96 Nasal Cannula 4.00 I/O 06/06/16 06/06/16 06/06/16 06/07/16 06/07/16 06/07/16 07:00 15:00 23:00 07:00 15:00 23:00 Intake Total 440 ml 1057 ml 294 ml Balance 440 ml 1057 ml 294 ml Intake Oral 440 ml 360 ml IV Total 697 ml 294 ml # Voids 2 2 1 2 # Bowel Movements 1 1 Result Diagram: 06/06/16 0710 06/06/16 0710 Objective Remarks GENERAL: Elderly male in no apparent distress sitting in bed being fed breakfast by [employer]. SKIN: Warm and dry. CARDIOVASCULAR: Regular rate and rhythm. RESPIRATORY: No accessory muscle use. Clear to auscultation. Breath sounds equal bilaterally. Cough on exam. GASTROINTESTINAL: Abdomen soft, non-tender, nondistended. MUSCULOSKELETAL: No lower extremity edema bilaterally. NEUROLOGICAL: Awake and alert. Motor grossly within normal limits. Normal speech. PSYCHIATRIC: Appropriate mood and affect; insight and judgment normal. Procedures None Urinary Catheter: No Vascular Central Line Catheter: No A/P Problem List: (1) Pneumonia ICD Code: J18.9 Status: Acute (2) Leukocytosis ICD Code: D72.829 Status: Acute (3) s/p left femoral orif Status: Acute (4) Anemia ICD Code: D64.9 Status: Acute (5) Hypoxia ICD Code: R09.02 Status: Acute (6) Cognitive impairment ICD Code: R41.89 Status: Acute (7) Hypernatremia ICD Code: E87.0 Status: Acute (8) Hypokalemia ICD Code: E87.6 Status: Acute (9) Urinary retention ICD Code: R33.9 Status: Acute Assessment and Plan (1) Pneumonia Multi lobar consolidation Leukocytosis Continue with cleocin/cefepime/vanco for now, Pharmacy to follow vancomycin and dose appropriately May be some element of aspiration v HHAP Continue with modified diet (2) Leukocytosis Acute worse today at 22.3 with left shift, possibly due to urinary retention. Monitor CBC (3) s/p left femoral orif Status post ORIF 05/24, continue with physical therapy LMWH (4) Anemia Hemoglobin stable at 9.8 Etiology shows some iron deficiency and bay be some element of chronic disease Continue ferrous sulfate (5) Hypoxia Improved, currently on 3 L Likely due to pneumonia, continue with oxygen. ABG shows significant hypoxemia Received Lasix, low-dose fluids due to dehydration (6) Cognitive impairment Baseline appears to be some difficulty with word finding but cooperative and able to follow instructions without difficulty. Discussed with family Speech therapy has evaluated and recommended pured diet with nectar thick liquids. (7) Hypernatremia Status post Lasix. Na only mildly improved at 151 with Cl stable at 115. Change IV NS to D5-1/2NS @ 42 mL/hr. Monitor intake and output Monitor BMP (8) Hypokalemia Mild 3.4. Likely attributed to Lasix. 40 mEq IV KCl ordered as RN tells me patient will not be able to tolerate by mouth. (9) Urinary retention Bladder scan with 640+ mL fluid retained. Crowder catheter ordered. UA ordered which shows moderate occult blood, 20-24 red blood cells, and 3-5 hyaline casts, but no evidence of infection. Start Flomax 0.4 mg daily, to be started tonight. GI prophylaxis: Miralax DVT prohylaxis: LMWH Discussed patient with Dr Tyler, attending. Discharge Planning CM following. May need O2 when discharged. Has walker and wheelchair. Attending Statement The exam, history, and the medical decision-making described in the above note were completed with my assistance as the dictating practitioner. I attest that I had a [id number] encounter with the patient on the same day, and personally performed all of the history, exam, or medical decision making. I reviewed and agree with the plan. Care plan discussed with spouse and children at bedside. Patient with urinary retention and some leukocytosis. Overall patient clinically appears improved. We'll need to continue inpatient medical care and maintain Crowder. This was discussed at length with the family at bedside Problem Qualifiers (1) Pneumonia: Qualified Code: J18.9 - Pneumonia due to infectious organism, unspecified laterality, unspecified part of lung (2) Anemia: Qualified Code: D64.9 - Anemia, unspecified type Emliy Sanchez Jun 07, 2016 09:36 Lolita Tyler MD Jun 07, 2016 14:21
[2016-06-07 10:03] LABS: POTASSIUM 3.4 MEQ/L (3.5-5.1)
[2016-06-07 10:06] LABS: BICARBONATE 26.9 MEQ/L (21.0-32.0)
[2016-06-07 10:07] LABS: BANDS 7 % (0-6); NEUTROPHIL # MANUAL DIFF 21.6 TH/MM3 (1.8-7.7); POLYS (SEG NEUTROPHILS) 90 % (16-70); WBC DIFF SAMPLE 100
[2016-06-07 10:08] LABS: PLATELET ESTIMATE SMEAR NORMAL (NORMAL); PLATELET MORPHOLOGY NORMAL (NORMAL); SCAN/DIFF FINAL DIFF MANUAL
[2016-06-07 10:42] LABS: BLOOD, URINE MOD (NEG); GLUCOSE,URINE NEG (NEG); KETONE, URINE NEG (NEG); NITRITE,URINE NEG (NEG); PH, URINE 5.5 (5.0-8.5)
[2016-06-07 10:47] LABS: METHOD OF COLLECTION CATH; URINE COLOR YELLOW (YELLW/STRAW)
[2016-06-07 10:50] LABS: COMMENT (UR) CULT NOT INDICATED; COMMENT2 (UR) MUCOUS PRESENT; CULTURE IF INDICATED CULT NOT INDICATED; SQUAMOUS EPITHELIAL CELL URINE 0-5 /hpf (0-5)
[2016-06-07] MEDS: POTASSIUM CHLOR 20 MEQ PREMIX 100 ML IV SCH ×2 (11:46→18:06)
[2016-06-07] MEDS: SODIUM CHLOR 0.9% 1000 ML INJ 1,000 ML IV SCH (11:47)
[2016-06-07] MEDS ORDERED: POTASSIUM CHLORIDE 20 MEQ CONTROLLED RELEASE TAB PO ONE (12:00)
[2016-06-07] MEDS ORDERED: DEXT 5%-NACL 0.45% 1000 ML INJ 1,000 ML IV SCH (14:00)
[2016-06-07] MEDS: VANCOMYCIN INJ 750 MG in SODIUM CHLOR 0.9% 250 ML INJ 250 ML IV SCH (22:01)
[2016-06-07] MEDS: TAMSULOSIN HCL 0.4 MG CAP PO SCH (22:04)
[2016-06-08] VITALS (11 sets, daily range): BP systolic 103–119; BP diastolic 58–72; PULSE 58–72; RESP 16–22; TEMP 96.4–98.3; O2SAT 90–99
[2016-06-08] MEDS: CEFEPIME INJ 2,000 MG in SODIUM CHLORIDE 0.9% INJ 100 ML IV SCH ×3 (01:07→20:23)
[2016-06-08] MEDS: CLINDAMYCIN INJ 600 MG in SODIUM CHLORIDE 0.9% INJ 100 ML IV SCH ×4 (02:15→23:02)
[2016-06-08 06:47] LABS: AUTOMATED NEUTROPHIL # 16.9 TH/MM3 (1.8-7.7); BASOPHIL % 0.1 % (0.0-2.0); EOSINOPHIL # 0.2 TH/MM3 (0-0.4); EOSINOPHIL % 0.9 % (0.0-4.0); HEMATOCRIT 24.1 % (39.0-51.0); LYMPH % 4.5 % (9.0-44.0); LYMPHOCYTE # 0.8 TH/MM3 (1.0-4.8); MEAN CELL VOLUME 94.8 FL (80.0-100.0); MEAN CORPUSCULAR HEMOGLOBIN 30.1 PG (27.0-34.0); MEAN CORPUSCULAR HGB CONC 31.8 % (32.0-36.0); MONO % 2.2 % (0.0-8.0); NEUT % 92.3 % (16.0-70.0); PLATELET COUNT 482 TH/MM3 (150-450); RED BLOOD COUNT 2.54 MIL/MM3 (4.50-5.90); RED CELL DISTRIBUTION WIDTH 16.5 % (11.6-17.2); WHITE BLOOD COUNT 18.3 TH/MM3 (4.0-11.0)
[2016-06-08 06:52] LABS: HEMO FLAGS DIFF FINAL; POTASSIUM 3.4 MEQ/L (3.5-5.1)
[2016-06-08 07:18] LABS: BICARBONATE 27.8 MEQ/L (21.0-32.0)
[2016-06-08] MEDS: RESP: ALBUTEROL 2.5 MG/IPRATROPIUM 0.5 MG NEB (SCH) NEB ×4 (07:26→19:27)
[2016-06-08] MEDS ORDERED: POTASSIUM CHLOR 20 MEQ PREMIX 100 ML IV ONE (08:15)
--- NOTE | 2016-06-08 08:24 | HHI.PR ---
Subjective Remarks Follow-up for pneumonia. RN came to me this morning stating the patient's oxygen saturation is in the upper 70s on 6 L of O2 and respiratory has also evaluated the patient. I went to see the patient and RT was at bedside and states the patient's O2 saturation is now in the 90s on nasal cannula. She recommends EZPAP. Patient denies feeling more short of breath this morning. He has a cough. Denies chest pain. Denies fevers or chills overnight. Objective Vitals Vital Signs Date Time Temp Pulse Resp B/P Pulse Ox O2 Delivery O2 Flow Rate FiO2 06/08/16 07:27 90 Nasal Cannula 6.00 06/08/16 04:00 96.4 72 16 113/64 91 06/08/16 00:00 96.7 64 16 109/60 94 06/07/16 22:00 92 Nasal Cannula 6.00 06/07/16 20:00 97.1 91 18 107/55 96 06/07/16 20:00 97.1 91 19 107/55 91 06/07/16 19:35 93 Nasal Cannula 3.00 06/07/16 16:00 97.7 66 20 141/71 98 06/07/16 12:00 98.1 56 20 128/67 96 I/O 06/07/16 06/07/16 06/07/16 06/08/16 06/08/16 06/08/16 07:00 15:00 23:00 07:00 15:00 23:00 Intake Total 294 ml 480 ml 902 ml 637 ml Output Total 750 ml 500 ml Balance 294 ml 480 ml 152 ml 137 ml Intake Oral 480 ml 60 ml 60 ml IV Total 294 ml 842 ml 577 ml Output Urine Total 750 ml 500 ml # Voids 2 2 # Bowel Movements 2 1 2 Result Diagram: 06/08/1630 06/08/16 0630 Objective Remarks GENERAL: Elderly male in no apparent distress sitting in bed nasal cannula in place. SKIN: Warm and dry. Ecchymosis over dorsal L hand. Abrasions to R arm. CARDIOVASCULAR: Regular rate and rhythm. RESPIRATORY: Productive cough on exam. Patient speaks without much pause. Crackles over right lower lobe. GASTROINTESTINAL: Abdomen soft, non-tender, nondistended. MUSCULOSKELETAL: No lower extremity edema bilaterally. NEUROLOGICAL: Awake and alert. Normal speech. PSYCHIATRIC: Appropriate mood and affect; insight and judgment normal. Procedures None Urinary Catheter: No Vascular Central Line Catheter: No A/P Problem List: (1) Pneumonia ICD Code: J18.9 Status: Acute (2) Leukocytosis ICD Code: D72.829 Status: Acute (3) s/p left femoral orif Status: Acute (4) Anemia ICD Code: D64.9 Status: Acute (5) Hypoxia ICD Code: R09.02 Status: Acute (6) Cognitive impairment ICD Code: R41.89 Status: Acute (7) Hypernatremia ICD Code: E87.0 Status: Acute (8) Hypokalemia ICD Code: E87.6 Status: Acute (9) Urinary retention ICD Code: R33.9 Status: Acute Assessment and Plan (1) Pneumonia Multi lobar consolidation Leukocytosis Continue with cleocin/cefepime/vanco for now, Pharmacy to follow vancomycin and dose appropriately May be some element of aspiration v HHAP Continue with modified diet (2) Leukocytosis WBC still elevated but improved from yesterday Monitor CBC (3) s/p left femoral orif Status post ORIF 05/24, continue with physical therapy LMWH (4) Anemia Hemoglobin dropped 2 points to 7.7 this morning. Etiology shows some iron deficiency and bay be some element of chronic disease Continue ferrous sulfate Order hemoccult stool Serial H&H (5) Hypoxia Worse, currently on 6L Likely due to pneumonia, continue with oxygen. RT recommends EZ-Pap which has been ordered ABG shows significant hypoxemia Received Lasix, low-dose fluids due to dehydration (6) Cognitive impairment Baseline appears to be some difficulty with word finding but cooperative and able to follow instructions without difficulty. Discussed with family. Speech therapy has evaluated and recommended pured diet with nectar thick liquids. (7) Hypernatremia Status post Lasix. Na only mildly improved at 150 with Cl stable at 115. Continue IVF at low rate Monitor intake and output Monitor BMP (8) Hypokalemia Still 3.4 s/p 40 mEq IV KCl yesterday. Could be attributed to Lasix. Will order another 20 mEq IV KCl and change fluids to D5-1/2NS+20mEqKCl (9) Urinary retention Bladder scan with 640+ mL fluid retained on 06/07/16. Crowder catheter in place UA shows moderate occult blood, but no evidence of infection. Continue Flomax 0.4 mg daily, started 06/07/16. GI prophylaxis: Miralax DVT prohylaxis: LMWH Discharge Planning CM following. May need O2 when discharged. Has walker and wheelchair. Attending Statement The exam, history, and the medical decision-making described in the above note were completed with my assistance as the dictating practitioner. I attest that I had a [id number] encounter with the patient on the same day, and personally performed all of the history, exam, or medical decision making. I reviewed and agree with the plan. Patient appears to be a mouth breather. Oxygen saturations increased with encouragement of nasal breathing. We'll follow chest x-ray. Continue to replace electrolytes. Discussed with Mary Jane HERNANDEZ and patient Hemoglobin 7.7, will transfuse 1 unit packed red blood cells Problem Qualifiers (1) Pneumonia: Qualified Code: J18.9 - Pneumonia due to infectious organism, unspecified laterality, unspecified part of lung (2) Anemia: Qualified Code: D64.9 - Anemia, unspecified type Emily Sanchez Jun 08, 2016 08:24 Lolita Tyler MD Jun 08, 2016 09:51
[2016-06-08] MEDS: ENOXAPARIN SODIUM 40 MG/0.4 ML SYRINGE SQ SCH (08:36)
[2016-06-08] MEDS: METOPROLOL TARTRATE 25 MG TAB PO SCH ×2 (08:38→20:25)
[2016-06-08] MEDS: FERROUS SULFATE 325 MG (65 MG ELEMENTAL IRON) TAB PO SCH (08:38)
[2016-06-08] MEDS: SODIUM CHLORIDE 0.9% FLUSH 5 ML FLUSH FLUSH SCH ×2 (08:39→20:23)
[2016-06-08] MEDS: POLYETHYLENE GLYCOL 17 GM PKG PO SCH (08:45)
[2016-06-08] MEDS: D5-1/2 NS + KCL 20 MEQ INJ 1,000 ML IV SCH (08:59)
[2016-06-08] MEDS ORDERED: SODIUM CHLOR 0.9% 250 ML INJ 250 ML IV ONE (09:45)
--- NOTE | 2016-06-08 09:58 | RADHPO ---
EXAM DATE/TIME: 06/08/2016 09:38 [facility] COMPARISON: CHEST SINGLE AP, June 03, 2016, 17:40. INDICATIONS: Short of breath. MEDICAL HISTORY: None. SURGICAL HISTORY: None. ENCOUNTER: Subsequent ACUITY: 4 - 6 days PAIN SCORE: 0/10 LOCATION: Bilateral chest FINDINGS: There has been interval improvement. There is less interstitial changes present. Very minimal paren chymal changes persist in the right lung. Heart and pulmonary vascularity is normal. There is minim al elevation of right hemidiaphragm. CONCLUSION: Interval improvement when compared to 06/03/16. Adalberto Prieto MD FACR on June 08, 2016 at 9:51 Board Certified Radiologist. This report was verified electronically.
[2016-06-08] MEDS: VANCOMYCIN INJ 750 MG in SODIUM CHLOR 0.9% 250 ML INJ 250 ML IV SCH (15:50)
[2016-06-08] MEDS: TAMSULOSIN HCL 0.4 MG CAP PO SCH (20:25)
[2016-06-09] VITALS (9 sets, daily range): BP systolic 118–141; BP diastolic 71–80; PULSE 54–95; RESP 18–20; TEMP 96.5–98.1; O2SAT 92–97
[2016-06-09] MEDS: CLINDAMYCIN INJ 600 MG in SODIUM CHLORIDE 0.9% INJ 100 ML IV SCH (05:06)
[2016-06-09 06:12] LABS: AUTOMATED NEUTROPHIL # 15.9 TH/MM3 (1.8-7.7); BASOPHIL % 0.1 % (0.0-2.0); EOSINOPHIL # 0.2 TH/MM3 (0-0.4); EOSINOPHIL % 1.1 % (0.0-4.0); HEMATOCRIT 33.3 % (39.0-51.0); LYMPH % 4.8 % (9.0-44.0); LYMPHOCYTE # 0.8 TH/MM3 (1.0-4.8); MEAN CELL VOLUME 92.7 FL (80.0-100.0); MEAN CORPUSCULAR HEMOGLOBIN 29.3 PG (27.0-34.0); MEAN CORPUSCULAR HGB CONC 31.6 % (32.0-36.0); MONO % 2.6 % (0.0-8.0); NEUT % 91.4 % (16.0-70.0); PLATELET COUNT 454 TH/MM3 (150-450); RED CELL DISTRIBUTION WIDTH 14.9 % (11.6-17.2); WHITE BLOOD COUNT 17.3 TH/MM3 (4.0-11.0)
[2016-06-09 06:16] LABS: HEMO FLAGS DIFF FINAL
[2016-06-09 06:23] LABS: POTASSIUM 3.8 MEQ/L (3.5-5.1)
[2016-06-09 06:28] LABS: BICARBONATE 26.5 MEQ/L (21.0-32.0)
[2016-06-09 06:51] LABS: SCAN/DIFF AUTO DIFF CONFIRMED
[2016-06-09] MEDS: RESP: ALBUTEROL 2.5 MG/IPRATROPIUM 0.5 MG NEB (SCH) NEB ×2 (07:52→11:27)
[2016-06-09] MEDS: CEFEPIME INJ 2,000 MG in SODIUM CHLORIDE 0.9% INJ 100 ML IV SCH (08:00)
[2016-06-09] MEDS: D5-1/2 NS + KCL 20 MEQ INJ 1,000 ML IV SCH (08:04)
[2016-06-09] MEDS ORDERED: BUMETANIDE INJ 1 MG/4 ML VIAL IV PUSH ONE (09:00)
[2016-06-09] MEDS: POLYETHYLENE GLYCOL 17 GM PKG PO SCH (09:05)
[2016-06-09] MEDS: ENOXAPARIN SODIUM 40 MG/0.4 ML SYRINGE SQ SCH (09:05)
[2016-06-09] MEDS: METOPROLOL TARTRATE 25 MG TAB PO SCH ×2 (09:05→21:08)
[2016-06-09] MEDS: SODIUM CHLORIDE 0.9% FLUSH 5 ML FLUSH FLUSH SCH ×2 (09:05→21:08)
[2016-06-09] MEDS: FERROUS SULFATE 325 MG (65 MG ELEMENTAL IRON) TAB PO SCH (09:05)
--- NOTE | 2016-06-09 10:24 | HHI.PR ---
Subjective Remarks Patient seen and evaluated today in follow-up for pneumonia, anemia. Better, leukocytosis improved. Still requiring quite a bit of oxygen at rest. Discussed with Mary Jane HERNANDEZ Objective Vitals Vital Signs Date Time Temp Pulse Resp B/P Pulse Ox O2 Delivery O2 Flow Rate FiO2 06/09/16 08:00 97.6 54 18 121/71 96 06/09/16 07:53 92 Nasal Cannula 6.00 06/09/16 04:00 96.5 54 20 125/72 92 06/09/16 00:00 97.2 59 20 141/77 97 06/08/16 20:00 61 06/08/16 20:00 97.2 70 20 119/63 93 06/08/16 19:27 91 Nasal Cannula 6.00 06/08/16 16:00 97.0 71 22 109/72 92 06/08/16 12:45 98.1 60 20 105/66 99 06/08/16 12:30 98.3 67 22 103/58 95 06/08/16 12:00 98.3 58 22 103/58 96 06/08/16 11:49 96 Nasal Cannula 6.00 I/O 06/08/16 06/08/16 06/08/16 06/09/16 06/09/16 06/09/16 07:00 15:00 23:00 07:00 15:00 23:00 Intake Total 637 ml 675 ml 804 ml 691 ml Output Total 500 ml 650 ml 250 ml 1000 ml Balance 137 ml 25 ml 554 ml -309 ml Intake Oral 60 ml 675 ml 60 ml 60 ml IV Total 577 ml 350 ml 631 ml Packed Cells 394 ml Output Urine Total 500 ml 650 ml 250 ml 1000 ml # Voids 2 # Bowel Movements 2 1 0 Result Diagram: 06/09/169 06/09/16448 Objective Remarks GENERAL: This is a well-nourished, well-developed patient, in no apparent distress. CARDIOVASCULAR: Regular rate and rhythm without murmurs, gallops, or rubs. RESPIRATORY: Clear to auscultation. Breath sounds equal bilaterally. No wheezes , rales, or rhonchi. GASTROINTESTINAL: Abdomen soft, non-tender, nondistended. Normal active bowel sounds MUSCULOSKELETAL: Extremities without clubbing, cyanosis, or edema. NEURO: Alert & Oriented to person, place and situation, baseline word finding difficulty Procedures None A/P Problem List: (1) Pneumonia ICD Code: J18.9 Status: Acute Plan: Continue by mouth clindamycin, (2) Leukocytosis ICD Code: D72.829 Status: Acute Plan: Improved (3) s/p left femoral orif Status: Acute Plan: Continue with PT (4) Anemia ICD Code: D64.9 Status: Acute Plan: Status post transfusion 1 unit packed red blood cells (5) Hypoxia ICD Code: R09.02 Status: Acute Plan: Continue diuresis and continue follow-up with oxygen\ (6) Cognitive impairment ICD Code: R41.89 Status: Acute Plan: Currently at baseline (7) Hypernatremia ICD Code: E87.0 Status: Acute Plan: Improved with change IV fluids (8) Hypokalemia ICD Code: E87.6 Status: Acute Plan: Replaced (9) Urinary retention ICD Code: R33.9 Status: Acute Plan: Retain Crowder until more ambulatory Assessment and Plan Miralax LMWH Discharge Planning to snf/ponr when stable Problem Qualifiers (1) Pneumonia: Qualified Code: J18.9 - Pneumonia due to infectious organism, unspecified laterality, unspecified part of lung (2) Anemia: Qualified Code: D64.9 - Anemia, unspecified type Lolita Tyler MD Jun 09, 2016 10:24
[2016-06-09] MEDS: CLINDAMYCIN PALMITATE SOLN 75 MG/5 ML 100 ML BTL PO SCH ×2 (12:28→17:04)
[2016-06-09] MEDS ORDERED: PHARMACY ORDERED LAB XX ONE (14:45)
[2016-06-09] MEDS: RESP: ALBUTEROL 2.5 MG/IPRATROPIUM 0.5 MG NEB (PRN) NEB (19:27)
[2016-06-09] MEDS: TAMSULOSIN HCL 0.4 MG CAP PO SCH (21:08)
[2016-06-10] VITALS (9 sets, daily range): BP systolic 121–144; BP diastolic 55–81; PULSE 46–72; RESP 16–20; TEMP 96–99.2; O2SAT 94–99
[2016-06-10] MEDS: CLINDAMYCIN PALMITATE SOLN 75 MG/5 ML 100 ML BTL PO SCH ×5 (00:13→23:30)
[2016-06-10] MEDS: METOPROLOL TARTRATE 25 MG TAB PO SCH ×2 (09:16→20:17)
[2016-06-10] MEDS: POLYETHYLENE GLYCOL 17 GM PKG PO SCH (09:16)
[2016-06-10] MEDS: FERROUS SULFATE 325 MG (65 MG ELEMENTAL IRON) TAB PO SCH (09:16)
[2016-06-10] MEDS: ENOXAPARIN SODIUM 40 MG/0.4 ML SYRINGE SQ SCH (09:16)
[2016-06-10] MEDS: SODIUM CHLORIDE 0.9% FLUSH 5 ML FLUSH FLUSH SCH ×2 (09:17→20:17)
[2016-06-10] MEDS: LEVOFLOXACIN 750 MG TAB PO SCH (12:10)
--- NOTE | 2016-06-10 16:05 | HHI.PR ---
Subjective Remarks Patient complains of muscle aches and pains in his side and lower back from lying in bed. He denies dyspnea. He states he is hoping to get out of the hospital soon so he can start taking better care of his family. Objective Vitals Vital Signs Date Time Temp Pulse Resp B/P Pulse Ox O2 Delivery O2 Flow Rate FiO2 06/10/16 10:20 97 Nasal Cannula 6.00 06/10/16 08:36 97.3 54 18 121/65 94 06/10/16 08:00 46 06/10/16 04:00 96.9 59 20 130/74 99 06/10/16 00:00 96.0 52 16 141/75 99 06/09/16 20:10 95 06/09/16 20:00 97.9 59 20 140/79 97 06/09/16 19:30 92 Nasal Cannula 6.00 I/O 06/09/16 06/09/16 06/09/16 06/10/16 06/10/16 06/10/16 07:00 15:00 23:00 07:00 15:00 23:00 Intake Total 691 ml 120 ml Output Total 1000 ml 1400 ml 725 ml Balance -309 ml -1400 ml -605 ml Intake Oral 60 ml 120 ml IV Total 631 ml Output Urine Total 1000 ml 1400 ml 725 ml # Bowel Movements 2 Result Diagram: 06/09/1644806/09/16448 Objective Remarks GENERAL: Well-nourished, well-developed petite elderly male patient in no apparent distress. SKIN: Warm and dry. HEAD: Normocephalic. EYES: No scleral icterus. No injection or drainage. NECK: Supple, trachea midline. No JVD or lymphadenopathy. CARDIOVASCULAR: Regular rate and rhythm without murmurs, gallops, or rubs. RESPIRATORY: Breath sounds equal and clear to auscultation in the anterior lung siegel bilaterally. No accessory muscle use on 6 L nasal cannula. GASTROINTESTINAL: Abdomen soft, non-tender, nondistended. EXTREMITIES: No cyanosis, or edema. NEUROLOGICAL: Awake, alert, and oriented x 3. Non-focal. Procedures None A/P Problem List: (1) Pneumonia ICD Code: J18.9 Status: Acute Plan: Continue by mouth clindamycin, add levaquin for atypical coverage. Wean O2 to maintain sats greater than 90%. Chest x-ray on the showed improvement. (2) Leukocytosis ICD Code: D72.829 Status: Acute Plan: Improving. (3) s/p left femoral orif Status: Acute Plan: Continue with PT (4) Anemia ICD Code: D64.9 Status: Acute Plan: Status post transfusion 1 unit packed red blood cells on 06/08. Hemoccult has been ordered and is pending. Hemoglobin is stable with no evidence of GI bleeding. (5) Hypoxia ICD Code: R09.02 Status: Acute Plan: Likely due to multilobar pneumonia. He has been diuresed. Continue treatment of pneumonia as above and oxygen via nasal cannula. Not in any respiratory distress. (6) Cognitive impairment ICD Code: R41.89 Status: Acute Plan: Currently at baseline (7) Hypernatremia ICD Code: E87.0 Status: Acute Plan: Improving, will repeat BMP in the morning. (8) Hypokalemia ICD Code: E87.6 Status: Acute Plan: Resolved, continue to monitor potassium. (9) Urinary retention ICD Code: R33.9 Status: Acute Plan: Continue with Crowder. Assessment and Plan DVT prophylaxis with SCDs. Problem Qualifiers (1) Pneumonia: Qualified Code: J18.9 - Pneumonia due to infectious organism, unspecified laterality, unspecified part of lung (2) Anemia: Qualified Code: D64.9 - Anemia, unspecified type Kelli Meraz MD Jun 10, 2016 16:05
[2016-06-10] MEDS: RESP: ALBUTEROL 2.5 MG/IPRATROPIUM 0.5 MG NEB (PRN) NEB (16:27)
[2016-06-10] MEDS: TAMSULOSIN HCL 0.4 MG CAP PO SCH (20:17)
[2016-06-11] VITALS (11 sets, daily range): BP systolic 99–131; BP diastolic 61–78; PULSE 55–70; RESP 18–19; TEMP 96.5–97.9; O2SAT 93–99
[2016-06-11] MEDS: CLINDAMYCIN PALMITATE SOLN 75 MG/5 ML 100 ML BTL PO SCH ×3 (05:31→17:56)
[2016-06-11 05:42] LABS: BLOOD GAS BASE EXCESS 4.3 mmol/L (-2-2); BLOOD GAS CARBOXYHEMOGLOBIN 1.8 % (0-4); BLOOD GAS HCO3 28 mmol/L (22-26); BLOOD GAS O2 HGB SATURATION 89 % (90-100); BLOOD GAS PCO2 40 mmHG (38-42); BLOOD GAS PO2 61 mmHG (61-120); BLOOD GAS TOTAL HGB 10.4 G/DL (12.0-16.0); TEMP CORR TO 98.6
[2016-06-11 05:43] LABS: DRAW SITE RT RADIAL; LITER FLOW 6 L/M; NUMBER OF ARTERIAL PUNCTURES 1; OXYGEN DEVICE NASAL CANNULA; STAT NO; ULNAR PULSE Y
[2016-06-11 06:17] LABS: HEMATOCRIT 32.9 % (39.0-51.0); MEAN CELL VOLUME 92.4 FL (80.0-100.0); MEAN CORPUSCULAR HEMOGLOBIN 30.2 PG (27.0-34.0); MEAN CORPUSCULAR HGB CONC 32.7 % (32.0-36.0); PLATELET COUNT 400 TH/MM3 (150-450); RED BLOOD COUNT 3.56 MIL/MM3 (4.50-5.90); RED CELL DISTRIBUTION WIDTH 15.4 % (11.6-17.2); REVIEW FLAG FINAL; WHITE BLOOD COUNT 14.9 TH/MM3 (4.0-11.0)
[2016-06-11 06:27] LABS: POTASSIUM 3.3 MEQ/L (3.5-5.1)
[2016-06-11 06:30] LABS: BICARBONATE 29.2 MEQ/L (21.0-32.0)
[2016-06-11] MEDS: RESP: ALBUTEROL 2.5 MG/IPRATROPIUM 0.5 MG NEB (PRN) NEB (07:36)
[2016-06-11] MEDS: FERROUS SULFATE 325 MG (65 MG ELEMENTAL IRON) TAB PO SCH ×2 (09:07→21:31)
[2016-06-11] MEDS: ENOXAPARIN SODIUM 40 MG/0.4 ML SYRINGE SQ SCH (09:07)
[2016-06-11] MEDS: POLYETHYLENE GLYCOL 17 GM PKG PO SCH (09:07)
[2016-06-11] MEDS: LEVOFLOXACIN 750 MG TAB PO SCH (09:07)
[2016-06-11] MEDS: SODIUM CHLORIDE 0.9% FLUSH 5 ML FLUSH FLUSH SCH ×2 (09:07→21:34)
[2016-06-11] MEDS: METOPROLOL TARTRATE 25 MG TAB PO SCH ×2 (09:07→21:31)
--- NOTE | 2016-06-11 15:53 | HHI.PR ---
Subjective Remarks Late entry, patient was seen earlier today. Denies complaints. Stable on 6 L nasal cannula. ABG this morning reviewed. Patient denies dyspnea. Objective Vitals Vital Signs Date Time Temp Pulse Resp B/P Pulse Ox O2 Delivery O2 Flow Rate FiO2 06/11/16 12:00 97.7 60 18 130/77 99 06/11/16 09:51 70 06/11/16 08:00 97.6 55 18 127/75 96 06/11/16 07:55 93 Nasal Cannula 4.00 06/11/16 07:37 95 Nasal Cannula 6.00 06/11/16 04:00 96.5 56 18 131/76 97 06/11/16 00:00 97.2 58 18 124/72 98 06/10/16 20:29 94 Nasal Cannula 6.00 06/10/16 20:00 65 06/10/16 20:00 99.2 72 18 144/81 94 06/10/16 17:00 96.6 60 16 131/55 96 I/O 06/10/16 06/10/16 06/10/16 06/11/16 06/11/16 06/11/16 07:00 15:00 23:00 07:00 15:00 23:00 Intake Total 0 ml 480 ml Output Total 700 ml Balance 0 ml -220 ml Intake Oral 480 ml IV Total 0 ml Output Urine Total 700 ml # Bowel Movements 1 Result Diagram: 06/11/1625 06/11/1625 Objective Remarks GENERAL: Well-nourished, well-developed petite elderly male patient in no apparent distress. SKIN: Warm and dry. HEAD: Normocephalic. EYES: No scleral icterus. No injection or drainage. NECK: Supple, trachea midline. No JVD or lymphadenopathy. CARDIOVASCULAR: Regular rate and rhythm without murmurs, gallops, or rubs. RESPIRATORY: Breath sounds equal and clear to auscultation in the anterior lung siegel bilaterally. No accessory muscle use on 6 L nasal cannula. GASTROINTESTINAL: Abdomen soft, non-tender, nondistended. EXTREMITIES: No cyanosis, or edema. NEUROLOGICAL: Awake, alert, and oriented x 3. Non-focal. Procedures None A/P Problem List: (1) Pneumonia ICD Code: J18.9 Status: Acute (2) Leukocytosis ICD Code: D72.829 Status: Acute (3) s/p left femoral orif Status: Acute (4) Anemia ICD Code: D64.9 Status: Acute (5) Hypoxia ICD Code: R09.02 Status: Acute (6) Cognitive impairment ICD Code: R41.89 Status: Acute (7) Hypernatremia ICD Code: E87.0 Status: Acute (8) Hypokalemia ICD Code: E87.6 Status: Acute (9) Urinary retention ICD Code: R33.9 Status: Acute Assessment and Plan (1) Pneumonia ICD Code: J18.9 Status: Acute Plan: Continue by mouth clindamycin, and levaquin for atypical coverage. Wean O2 to maintain sats greater than 90%.. ABG this morning shows he still requiring 6 L nasal cannula. Chest x-ray on the showed improvement. White blood cell count is slowly down trending. We'll repeat CBC in the morning. Repeat chest x-ray in the morning. (2) Leukocytosis ICD Code: D72.829 Status: Acute Plan: Improving. (3) s/p left femoral orif Status: Acute Plan: Continue with PT (4) Anemia ICD Code: D64.9 Status: Acute Plan: Status post transfusion 1 unit packed red blood cells on 06/08. Hemoccult has been ordered and is pending. Hemoglobin is stable with no evidence of GI bleeding. Iron is low we'll start oral iron. (5) Hypoxia ICD Code: R09.02 Status: Acute Plan: Likely due to multilobar pneumonia. He has been diuresed. Continue treatment of pneumonia as above and oxygen via nasal cannula. Not in any respiratory distress. (6) Cognitive impairment ICD Code: R41.89 Status: Acute Plan: Currently at baseline (7) Hypernatremia ICD Code: E87.0 Status: Acute Plan: Resolved, will repeat BMP in the morning. (8) Hypokalemia ICD Code: E87.6 Status: Acute Plan: Potassium slightly low today, will repeat BMP in the morning. (9) Urinary retention ICD Code: R33.9 Status: Acute Plan: Continue with Crowder. Assessment and Plan DVT prophylaxis with SCDs. Problem Qualifiers (1) Pneumonia: Qualified Code: J18.9 - Pneumonia due to infectious organism, unspecified laterality, unspecified part of lung (2) Anemia: Qualified Code: D64.9 - Anemia, unspecified type Kelli Meraz MD Jun 11, 2016 15:53
[2016-06-11] MEDS: TAMSULOSIN HCL 0.4 MG CAP PO SCH (21:31)
[2016-06-12] VITALS (7 sets, daily range): BP systolic 89–127; BP diastolic 56–71; PULSE 54–61; RESP 12–20; TEMP 96.3–98.1; O2SAT 92–97
[2016-06-12] MEDS: ACETAMINOPHEN/HYDROcodone 325 MG/5 MG TAB PO PRN (00:19)
[2016-06-12] MEDS: CLINDAMYCIN PALMITATE SOLN 75 MG/5 ML 100 ML BTL PO SCH ×5 (00:19→23:49)
[2016-06-12] MEDS: POLYETHYLENE GLYCOL 17 GM PKG PO SCH (08:32)
[2016-06-12] MEDS: LEVOFLOXACIN 750 MG TAB PO SCH (08:32)
[2016-06-12] MEDS: FERROUS SULFATE 325 MG (65 MG ELEMENTAL IRON) TAB PO SCH ×2 (08:32→21:36)
[2016-06-12] MEDS: ENOXAPARIN SODIUM 40 MG/0.4 ML SYRINGE SQ SCH (08:32)
[2016-06-12] MEDS: METOPROLOL TARTRATE 25 MG TAB PO SCH ×2 (08:33→21:26)
[2016-06-12] MEDS: SODIUM CHLORIDE 0.9% FLUSH 5 ML FLUSH FLUSH SCH ×2 (08:33→21:26)
[2016-06-12] MEDS ORDERED: TAMS5CAP PO (12:40)
[2016-06-12] MEDS ORDERED: NORC5TAB PO (12:40)
[2016-06-12] MEDS ORDERED: CLIN75S PO (12:40)
[2016-06-12] MEDS ORDERED: LEVA750T PO (12:40)
[2016-06-12] MEDS ORDERED: ALPR.25 PO (12:40)
[2016-06-12] MEDS ORDERED: IPRASOL NEB (12:40)
--- NOTE | 2016-06-12 12:42 | HHI.DS ---
Discharge Summary Admission Date Jun 03, 2016 at 21:16 Discharge Date: Jun 12, 2016 Admitting Diagnosis pneumonia (1) Pneumonia ICD Code: J18.9 (2) Leukocytosis ICD Code: D72.829 (3) s/p left femoral orif (4) Anemia ICD Code: D64.9 (5) Hypoxia ICD Code: R09.02 (6) Cognitive impairment ICD Code: R41.89 (7) Hypernatremia ICD Code: E87.0 (8) Hypokalemia ICD Code: E87.6 (9) Urinary retention ICD Code: R33.9 (10) Acute hypoxemic respiratory failure ICD Code: J96.01 (11) Oropharyngeal dysphagia ICD Code: R13.12 (12) Aspiration pneumonia ICD Code: J69.0 Procedures None Brief History - From Admission Mr. Lundberg is an 81 year-old male with a past medical history of prostate CA, osteoporosis, T7 compression fracture, and mechanical fall at home with subsequent left hip femoral neck fracture with ORIF by Dr. Cameron on 05/24/2016 ( discharged 05/26/16 to rehab) who presented to ER from skilled rehabilitation facility for evaluation of shortness of breath. D-dimer was elevated at 2.61. CT angiogram negative for PE. Multilobar consolidation likely school admissions representative of pneumonia seen as well as small right and tiny left pleural effusions. Left lower extremity Doppler demonstrates no DVT. Chest x-ray shows patchy opacities bilaterally with right worse than left consistent with pneumonia. BNP elevated at 303. The patient is having difficulty providing medical history and answering ROS questions. Therefore, history taken from electronic medical record and discussions with staff members. . CBC/BMP: 06/11/16 0525 06/11/16 0525 Significant Findings Laboratory Tests Test 06/11/16 06/11/16 05:25 05:36 White Blood Count 14.9 TH/MM3 (4.0-11.0) Red Blood Count 3.56 MIL/MM3 (4.50-5.90) Hemoglobin 10.7 GM/DL (13.0-17.0) Hematocrit 32.9 % (39.0-51.0) Potassium Level 3.3 MEQ/L (3.5-5.1) Calcium Level 7.9 MG/DL (8.5-10.1) Blood Gas HCO3 28 mmol/L (22-26) Blood Gas Base Excess 4.3 mmol/L (-2-2) Blood Gas Oxygen Saturation 89 % (90-100) Arterial Blood pH 7.46 (7.380-7.420) Blood Gas Hemoglobin 10.4 G/DL (12.0-16.0) Imaging Last Impressions Chest X-Ray 06/08/16 0000 Signed Impressions: Service Date/Time: Wednesday, June 08, 2016 09:38 - CONCLUSION: Interval improvement when compared to 06/03/16. Adalberto Prieto MD FACR Head CT 06/05/16 0000 Signed Impressions: Service Date/Time: Sunday, June 05, 2016 11:11 - CONCLUSION: Normal examination for a patient of this age. Rukhsana Castro MD Lower Extremity Ultrasound 06/03/16 1631 Signed Impressions: Service Date/Time: Friday, June 03, 2016 17:13 - CONCLUSION: No evidence of deep venous thrombosis within the left lower extremity. Jermain Diggs MD CT Angiography 06/03/16 0000 Signed Impressions: Service Date/Time: Friday, June 03, 2016 20:25 - CONCLUSION: 1. No evidence for pulmonary embolism. 2. Multilobar consolidation likely pneumonia. 3. Small right and tiny left pleural effusion. Mac Garcia MD PE at Discharge GENERAL: Well-nourished, well-developed petite elderly male patient in no apparent distress. SKIN: Warm and dry. HEAD: Normocephalic. EYES: No scleral icterus. No injection or drainage. NECK: Supple, trachea midline. No JVD or lymphadenopathy. CARDIOVASCULAR: Regular rate and rhythm without murmurs, gallops, or rubs. RESPIRATORY: Breath sounds equal and clear to auscultation in the anterior lung siegel bilaterally. No accessory muscle use on 6 L nasal cannula. GASTROINTESTINAL: Abdomen soft, non-tender, nondistended. EXTREMITIES: No cyanosis, or edema. NEUROLOGICAL: Awake, alert, and oriented x 3. Non-focal. Hospital Course The patient was admitted and treated with broad-spectrum IV antibiotics. His respiratory status did worsen and he was placed on a Ventimask on point. The patient also developed urinary retention with a bladder scan showing 600 mL of fluid in the Crowder catheter was placed. He was started on Flomax. The patient also had anemia with a drop to hemoglobin of 6.8 without clear etiology of bleeding. Iron studies showed iron deficiency. He was started on oral iron and transfused 1 unit of packed red blood cells on June 08 and hemoglobin has been stable since. Repeat chest x-ray on the showed improvement in the appearance of the multilobar infiltrates. The patient has been weaned down gradually and is now on 4 L of nasal cannula. He still requires significant assistance with physical therapy and has extremely poor balance. However he has been resting quite comfortably and, in his bed and chair over the past 4 days. He has been transitioned to by mouth Levaquin and clindamycin for several days and doing well. Speech therapy evaluated him for his swallowing given the multilobar consolidations to rule out aspiration, he does have severe oropharyngeal dysphagia however he is tolerating a pured diet with pudding thickened liquids. We'll plan for discharge to detention facility if bed available this afternoon. He will need to follow-up with urology as an outpatient for bladder dynamics setting and attempt to remove Crowder. Pt Condition on Discharge: Stable Discharge Disposition: Discharge to SNF Discharge Time: > 30 minutes Discharge Instructions DIET: Follow Instructions for: Heart Healthy Diet Activities you can perform: Regular-No Restrictions New Medications: Clindamycin Liq (Cleocin Pediatric Granule Liq) 75 Mg/5 Ml Soln 300 MG PO Q6HR Infection Days 7 ML Ipratropium-Albuterol Neb (Duoneb) 0.5-2.5 Mg/3 Ml Neb 1 AMPULE NEB Q4HR NEB PRN wheezing #120 ML Levofloxacin (Levaquin) 750 Mg Tab 750 MG PO DAILY@11 Infection #7 TAB Tamsulosin (Flomax) 0.4 Mg Cap 0.4 MG PO DAILY@2100 urine retention #30 CAP Continued Medications: Alprazolam (Xanax) 0.25 Mg Tab 0.25 MG PO Q8H PRN ANXIETY #20 Ref 0 TAB (This prescription has been renewed) Docusate Sodium (Colace) 100 Mg Cap 100 MG PO BID PRN Constipation #60 Ref 0 CAP Hydrocodone-Acetaminophen ([place]) 5-325 mg Tab 1 TAB PO Q4H PRN PAIN #60 Ref 0 TAB (This prescription has been renewed) Discontinued Medications: Enoxaparin Inj (Lovenox Inj) 40 Mg/0.4 Ml Syr 40 MG SQ Q24H Calcium Supplement Days 14 INJECTION Metoprolol Tartrate (Metoprolol Tartrate) 25 Mg Tab 25 MG PO BID #60 Ref 0 TAB Kelli Meraz MD Jun 12, 2016 12:42
[2016-06-12] MEDS: TAMSULOSIN HCL 0.4 MG CAP PO SCH (21:26)
[2016-06-13 00:06] VITALS: BP 118/77; PULSE 60; RESP 12; TEMP 97.9; O2SAT 95
[2016-06-13 04:02] VITALS: BP 109/80; PULSE 70; RESP 14; TEMP 98; O2SAT 94
[2016-06-13 04:27] VITALS: BP 109/80; PULSE 70; RESP 14; TEMP 98; O2SAT 94
[2016-06-13] MEDS: CLINDAMYCIN PALMITATE SOLN 75 MG/5 ML 100 ML BTL PO SCH (06:15)
[2016-06-13 08:00] VITALS: BP 140/70; PULSE 60; RESP 20; TEMP 97; O2SAT 93; O2SAT 94
[2016-06-13] MEDS: FERROUS SULFATE 325 MG (65 MG ELEMENTAL IRON) TAB PO SCH (09:39)
[2016-06-13] MEDS: METOPROLOL TARTRATE 25 MG TAB PO SCH (09:39)
[2016-06-13] MEDS: ENOXAPARIN SODIUM 40 MG/0.4 ML SYRINGE SQ SCH (09:39)
[2016-06-13] MEDS: SODIUM CHLORIDE 0.9% FLUSH 5 ML FLUSH FLUSH SCH (09:39)
[2016-06-13] MEDS: POLYETHYLENE GLYCOL 17 GM PKG PO SCH (09:39)
[2016-06-18 06:44] LABS: CRITICAL VALUE YES
== END 2016-06-13 12:30 | DRG 193 ==
LOC: NEDAMB 16:07 → NEDA 21:16 → NEDH 06-04 01:16 → PH3A 06-04 13:35
PROVIDERS: ADMIT Family Medicine; ATTEND Family Medicine
PROC: 3E0F7GC Introduction of Other Therapeutic Substance into Respiratory Tract, Via Natural or Artificial Opening (ICD-10-PCS; 2016-06-03)
PROC: 0T9B70Z Drainage of Bladder with Drainage Device, Via Natural or Artificial Opening (ICD-10-PCS; principal; 2016-06-07)
PROC: 30233N1 Transfusion of Nonautologous Red Blood Cells into Peripheral Vein, Percutaneous Approach (ICD-10-PCS; 2016-06-08)
DX: J18.9 Pneumonia, unspecified organism (principal); J96.01 Acute respiratory failure with hypoxia; E87.0 Hyperosmolality and hypernatremia; E86.0 Dehydration; E61.1 Iron deficiency; R13.12 Dysphagia, oropharyngeal phase; J69.0 Pneumonitis due to inhalation of food and vomit; F03.90 Unspecified dementia, unspecified severity, without behavioral disturbance, psychotic disturbance, mood disturbance, and anxiety; D64.9 Anemia, unspecified; F17.210 Nicotine dependence, cigarettes, uncomplicated; Z85.46 Personal history of malignant neoplasm of prostate; M81.0 Age-related osteoporosis without current pathological fracture; S72.002D Fracture of unspecified part of neck of left femur, subsequent encounter for closed fracture with routine healing; E87.6 Hypokalemia; R33.9 Retention of urine, unspecified; Z66 Do not resuscitate
CPT/HCPCS: 36430; 36600; 70450; 71010; 71275; 80048; 80202; 81001; 82272; 82550; 82746; 82805; 83540; 83550; 83605; 83735; 83880; 84484; 85007; 85025; 85027; 85379; 85610; 85730; 86850; 86900; 86901; 86920; 87040; 93005; 93971; 94640; 94664; 96365; 96367; J0456; J0692; J1650; J1940; J2270; J3370; J3480; J7030; J7040; J7050; P9016; Q9967

== ENCOUNTER 2016-06-23 13:25 | Observation (INO) | payer MEDICARE, OTHER ==
[~2016-06-23] VITALS: Ht 165.1 cm; Wt 45.0 kg
[2016-06-23] VITALS (8 sets, daily range): BP systolic 104–129; BP diastolic 55–63; PULSE 63–73; RESP 14–20; TEMP 97.4–97.6; O2SAT 92–96
[~2016-06-23 13:25] MED LIST changes: +ALPR.25 PO; +CLIN75S PO; -ENOX40P SQ; +IPRASOL NEB; +LEVA750T PO; +TAMS5CAP PO
[2016-06-23] MEDS ORDERED: SODIUM CHLORIDE 0.9% FLUSH 5 ML FLUSH IVF PRN (13:45)
--- NOTE | 2016-06-23 13:50 | PD ---
HPI Chief Complaint: GI Complaint Time Seen by Provider: 13:49 Travel History International Travel<30 days: No Contact w/Intl Traveler<30days: No Traveled to known affect area: No History of Present Illness HPI 81-year-old male brought in from the nursing facility with reports of worsening dysphagia and loss of weight. Patient was sent to the emergency department supposedly for a GI consult. Patient has dementia and is confused as to why he is here. Patient admits he has no appetite, but complains of no pain, fever, nausea, vomiting, or diarrhea. He does know that he has lost weight in the last month. Patient has no other complaints. He has no known drug allergies. PFSH Past Medical History Cancer: Yes (PROSTATE) Cardiovascular Problems: No Chemotherapy: No Diabetes: No Diminished Hearing: No Endocrine: No Gastrointestinal Disorders: Yes (NAUSEA VOMITING, CONSTIPATION) Genitourinary: No Hepatitis: No Hiatal Hernia: No Hypertension: No Immune Disorder: No Musculoskeletal: Yes Neurologic: Yes Psychiatric: No Respiratory: No Radiation Therapy: No Thyroid Disease: No Past Surgical History Abdominal Surgery: No Cardiac Surgery: No Ear Surgery: No Endocrine Surgery: No Eye Surgery: No Genitourinary Surgery: Yes (ESWL) Joint Replacement: No Oral Surgery: No Pacemaker: No Thoracic Surgery: No Other Surgery: Yes (back surgery) Social History Alcohol Use: Yes (DAILY BEER OR WINE) Tobacco Use: Yes (3 CIGS PER DAY) Substance Use: No Allergies-Medications (Allergen,Severity, Reaction): Coded Allergies: No Known Allergies (Unverified , 06/03/16) Reported Meds & Prescriptions Reported Meds & Active Scripts Active Flomax (Tamsulosin HCl) 0.4 Mg Cap 0.4 Mg PO DAILY@2100 Levaquin (Levofloxacin) 750 Mg Tab 750 Mg PO DAILY@11 Duoneb (Ipratropium-Albuterol Neb) 0.5-2.5 Mg/3 Ml Neb 1 Ampule NEB Q4HR NEB PRN Cleocin Pediatric Granule Liq (Clindamycin Palmitate HCl) 75 Mg/5 Ml Soln 300 Mg PO Q6HR 7 Days Xanax (Alprazolam) 0.25 Mg Tab 0.25 Mg PO Q8H PRN [place] (Hydrocodone-Acetaminophen) 5-325 mg Tab 1 Tab PO Q4H PRN Colace (Docusate Sodium) 100 Mg Cap 100 Mg PO BID PRN Review of Systems ROS Limitations: Poor Historian Except as stated in HPI: all other systems reviewed are Neg General / Constitutional: No: Fever Eyes: No: Visual changes HENT: No: Headaches Cardiovascular: No: Chest Pain or Discomfort Respiratory: No: Shortness of Breath Gastrointestinal: No: Abdominal Pain Genitourinary: No: Dysuria Musculoskeletal: No: Pain Skin: No Rash Neurologic: No: Weakness Psychiatric: No: Depression Endocrine: No: Polydipsia Hematologic/Lymphatic: No: Easy Bruising Physical Exam Exam Limitations: Poor Historian Narrative GENERAL: Patient appears in no acute distress. He appears cachectic. Patient is pleasant in his demeanor. SKIN: Warm and dry. Poor color. Poor turgor. HEAD: Atraumatic. Normocephalic. EYES: Pupils equal and round. No scleral icterus. No injection or drainage. ENT: No nasal bleeding or discharge. Mucous membranes pink and dry. Pharynx is clear. Airway is patent. NECK: Trachea midline. No JVD. CARDIOVASCULAR: Regular rate and rhythm. No murmurs gallops or rubs appreciated. RESPIRATORY: No accessory muscle use. Clear to auscultation. Breath sounds equal bilaterally. GASTROINTESTINAL: Abdomen soft, non-tender, nondistended. Hepatic and splenic margins not palpable. No masses appreciated or pain elicited. Patient is noted have an indwelling catheter. MUSCULOSKELETAL: Extremities without clubbing, cyanosis, or edema. No obvious deformities. NEUROLOGICAL: Awake and alert. No obvious cranial nerve deficits. Motor grossly within normal limits. Five out of 5 muscle strength in the arms and legs. Normal speech. PSYCHIATRIC: Appropriate mood and affect; insight and judgment normal. Data Data Last Documented VS Vital Signs Date Time Temp Pulse Resp B/P Pulse Ox O2 Delivery O2 Flow Rate FiO2 06/23/16 14:12 69 20 111/60 93 Nasal Cannula 2 06/23/16 13:34 97.6 Orders Complete Blood Count With Diff (06/23/16 13:42) Comprehensive Metabolic Panel (06/23/16 13:42) Lipase (06/23/16 13:42) Lactic Acid (06/23/16 13:42) Prothrombin Time / Inr (Pt) (06/23/16 13:42) Act Partial Throm Time (Ptt) (06/23/16 13:42) Urinalysis - C+S If Indicated (06/23/16 13:42) Ct Abd/Pel W Iv Contrast(Rout) (06/23/16 13:42) Iv Access Insert/Monitor (06/23/16 13:42) Ecg Monitoring (06/23/16 13:42) Oximetry (06/23/16 13:42) Sodium Chloride 0.9% Flush (Ns Flush) (06/23/16 13:45) Electrocardiogram (06/23/16 13:42) Chest, Single Ap (06/23/16 13:55) Oral Contrast - Adult (06/23/16 13:55) Labs Laboratory Tests Test 06/23/16 14:00 White Blood Count 10.9 TH/MM3 Red Blood Count 4.04 MIL/MM3 Hemoglobin 12.3 GM/DL Hematocrit 38.3 % Mean Corpuscular Volume 94.6 FL Mean Corpuscular Hemoglobin 30.5 PG Mean Corpuscular Hemoglobin 32.2 % Concent Red Cell Distribution Width 16.0 % Platelet Count 289 TH/MM3 Mean Platelet Volume 9.1 FL Neutrophils (%) (Auto) 84.4 % Lymphocytes (%) (Auto) 9.4 % Monocytes (%) (Auto) 4.8 % Eosinophils (%) (Auto) 0.8 % Basophils (%) (Auto) 0.6 % Neutrophils # (Auto) 9.2 TH/MM3 Lymphocytes # (Auto) 1.0 TH/MM3 Monocytes # (Auto) 0.5 TH/MM3 Eosinophils # (Auto) 0.1 TH/MM3 Basophils # (Auto) 0.1 TH/MM3 CBC Comment DIFF FINAL Differential Comment Prothrombin Time 11.8 SEC Prothromb Time International 1.1 RATIO Ratio Activated Partial 26.8 SEC Thromboplast Time Sodium Level 145 MEQ/L Potassium Level 4.5 MEQ/L Chloride Level 109 MEQ/L Carbon Dioxide Level 33.4 MEQ/L Anion Gap 3 MEQ/L Blood Urea Nitrogen 17 MG/DL Creatinine 1.01 MG/DL Estimat Glomerular Filtration 71 ML/MIN Rate Random Glucose 93 MG/DL Lactic Acid Level 1.4 mmol/L Calcium Level 8.5 MG/DL Total Bilirubin 0.4 MG/DL Aspartate Amino Transf 29 U/L (AST/SGOT) Alanine Aminotransferase 16 U/L (ALT/SGPT) Alkaline Phosphatase 140 U/L Total Protein 6.8 GM/DL Albumin 2.5 GM/DL Lipase 46 U/L MDM Medical Decision Making Medical Screen Exam Complete: Yes Emergency Medical Condition: Yes Differential Diagnosis Dysphagia. Failure to thrive. Loss of weight. Electrolyte imbalance. Urinary tract infection. Aspiration pneumonia. Narrative Course Patient is seen in the ambulance aguilar. Labs ordered including CBC, CMP, lipase, lactic acid, coags, and urinalysis. EKG and chest x-ray are ordered as well. CT of the abdomen and pelvis with IV contrast is ordered pending creatinine. Patient is awaiting medical with placement. Patient was moved to alpha pod, and the patient was discussed with Dr. Sykes who assumes care of the patient at this time. Labs and CT are still pending. Condition: Stable Josué Millan Jun 23, 2016 13:50
[2016-06-23 14:15] LABS: AUTOMATED NEUTROPHIL # 9.2 TH/MM3 (1.8-7.7); BASOPHIL # 0.1 TH/MM3 (0-0.2); BASOPHIL % 0.6 % (0.0-2.0); EOSINOPHIL # 0.1 TH/MM3 (0-0.4); EOSINOPHIL % 0.8 % (0.0-4.0); HEMATOCRIT 38.3 % (39.0-51.0); HEMO FLAGS DIFF FINAL; LYMPH % 9.4 % (9.0-44.0); MEAN CELL VOLUME 94.6 FL (80.0-100.0); MEAN CORPUSCULAR HEMOGLOBIN 30.5 PG (27.0-34.0); MEAN CORPUSCULAR HGB CONC 32.2 % (32.0-36.0); MONO % 4.8 % (0.0-8.0); NEUT % 84.4 % (16.0-70.0); PLATELET COUNT 289 TH/MM3 (150-450); RED BLOOD COUNT 4.04 MIL/MM3 (4.50-5.90); WHITE BLOOD COUNT 10.9 TH/MM3 (4.0-11.0)
[2016-06-23 14:25] LABS: INTERNATIONAL NORMALIZED RATIO 1.1 RATIO; PROTHROMBIN TIME - PATIENT 11.8 SEC (9.8-11.6)
[2016-06-23 14:29] LABS: APTT (PATIENT) 26.8 SEC (24.3-30.1)
[2016-06-23 14:36] LABS: ALKALINE PHOSPHATASE 140 U/L (45-117); TOTAL BILIRUBIN ADULT 0.4 MG/DL (0.2-1.0)
[2016-06-23 14:37] LABS: ALT (GPT) 16 U/L (12-78); ANION GAP 3 MEQ/L (5-15); AST (GOT) 29 U/L (15-37); BICARBONATE 33.4 MEQ/L (21.0-32.0); BLOOD UREA NITROGEN 17 MG/DL (7-18); CHLORIDE 109 MEQ/L (98-107); GLOMERULAR FILTRATION RATE 71 ML/MIN (>89); SODIUM (NA) 145 MEQ/L (136-145)
[2016-06-23 14:38] LABS: POTASSIUM 4.5 MEQ/L (3.5-5.1)
[2016-06-23 15:03] LABS: BLOOD, URINE MOD (NEG); COMMENT (UR) CULT NOT INDICATED; CULTURE IF INDICATED CULT NOT INDICATED; GLUCOSE,URINE NEG (NEG); KETONE, URINE NEG (NEG); NITRITE,URINE NEG (NEG); URINE COLOR YELLOW (YELLW/STRAW)
--- NOTE | 2016-06-23 15:09 | RADRPT ---
EXAM DATE/TIME: 06/23/2016 14:52 [facility] COMPARISON: CT PULMONARY ANGIOGRAM, June 03, 2016, 20:25. CHEST SINGLE AP, June 08, 2016, 9:38. INDICATIONS : Cough, short of breath, MEDICAL HISTORY : Carcinoma, prostatic. Renal calculi. pneumonia, aspiration pneumonia, femur fracture SURGICAL HISTORY : kyphoplasty, precancerous nodules removed from esophagus ENCOUNTER: Initial ACUITY: 1 day PAIN SCORE: 0/10 LOCATION: Bilateral chest FINDINGS: A single view of the chest demonstrates stable mild infiltrates in the right upper and right lower jahaira ng. The left lung is clear and well-aerated. No new infiltrates are seen. The heart size is stable. T here are no pleural effusions or pulmonary edema. No evidence of pneumothorax. No significant changes .. CONCLUSION: Stable mild infiltrates in the right upper and right lower lung. No significant changes. Slade Carrera MD on June 23, 2016 at 15:06 Board Certified Radiologist. This report was verified electronically.
--- NOTE | 2016-06-23 16:30 | PD ---
Data Data Last Documented VS Vital Signs Date Time Temp Pulse Resp B/P Pulse Ox O2 Delivery O2 Flow Rate FiO2 06/23/16 14:12 69 20 111/60 93 Nasal Cannula 2 06/23/16 13:34 97.6 Orders Complete Blood Count With Diff (06/23/16 13:42) Comprehensive Metabolic Panel (06/23/16 13:42) Lipase (06/23/16 13:42) Lactic Acid (06/23/16 13:42) Prothrombin Time / Inr (Pt) (06/23/16 13:42) Act Partial Throm Time (Ptt) (06/23/16 13:42) Urinalysis - C+S If Indicated (06/23/16 13:42) Iv Access Insert/Monitor (06/23/16 13:42) Ecg Monitoring (06/23/16 13:42) Oximetry (06/23/16 13:42) Sodium Chloride 0.9% Flush (Ns Flush) (06/23/16 13:45) Electrocardiogram (06/23/16 13:42) Chest, Single Ap (06/23/16 13:55) Oral Contrast - Adult (06/23/16 13:55) Diet Regular Basic (06/23/16 Dinner) Consult Gastroenterology (06/23/16 ) Alprazolam (Xanax) (06/23/16 16:15) Tamsulosin (Flomax) (06/23/16 21:00) Admit Order (Ed Use Only) (06/23/16 ) Labs Laboratory Tests Test 06/23/16 06/23/16 14:00 14:10 White Blood Count 10.9 TH/MM3 Red Blood Count 4.04 MIL/MM3 Hemoglobin 12.3 GM/DL Hematocrit 38.3 % Mean Corpuscular Volume 94.6 FL Mean Corpuscular Hemoglobin 30.5 PG Mean Corpuscular Hemoglobin 32.2 % Concent Red Cell Distribution Width 16.0 % Platelet Count 289 TH/MM3 Mean Platelet Volume 9.1 FL Neutrophils (%) (Auto) 84.4 % Lymphocytes (%) (Auto) 9.4 % Monocytes (%) (Auto) 4.8 % Eosinophils (%) (Auto) 0.8 % Basophils (%) (Auto) 0.6 % Neutrophils # (Auto) 9.2 TH/MM3 Lymphocytes # (Auto) 1.0 TH/MM3 Monocytes # (Auto) 0.5 TH/MM3 Eosinophils # (Auto) 0.1 TH/MM3 Basophils # (Auto) 0.1 TH/MM3 CBC Comment DIFF FINAL Differential Comment Prothrombin Time 11.8 SEC Prothromb Time International 1.1 RATIO Ratio Activated Partial 26.8 SEC Thromboplast Time Sodium Level 145 MEQ/L Potassium Level 4.5 MEQ/L Chloride Level 109 MEQ/L Carbon Dioxide Level 33.4 MEQ/L Anion Gap 3 MEQ/L Blood Urea Nitrogen 17 MG/DL Creatinine 1.01 MG/DL Estimat Glomerular Filtration 71 ML/MIN Rate Random Glucose 93 MG/DL Lactic Acid Level 1.4 mmol/L Calcium Level 8.5 MG/DL Total Bilirubin 0.4 MG/DL Aspartate Amino Transf 29 U/L (AST/SGOT) Alanine Aminotransferase 16 U/L (ALT/SGPT) Alkaline Phosphatase 140 U/L Total Protein 6.8 GM/DL Albumin 2.5 GM/DL Lipase 46 U/L Urine Color YELLOW Urine Turbidity CLOUDY Urine pH 6.0 Urine Specific [place] 1.022 Urine Protein 30 mg/dL Urine Glucose (UA) NEG mg/dL Urine Ketones NEG mg/dL Urine Occult Blood MOD Urine Nitrite NEG Urine Bilirubin NEG Urine Urobilinogen LESS THAN 2.0 MG/DL Urine Leukocyte Esterase LARGE Urine Amorphous Sediment MOD Microscopic Urinalysis Comment CULT NOT INDICATED MDM Supervised Visit with BRET: Yes Narrative Course Assumed care of patient from [place]. 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 He broke his hip recently and was readmitted for aspiration pneumonia was found of dysphagia. He's on putting thickened liquids and pured diet. He also has had Fletcher's esophagus and early precancerous changes which were treated with endoscopic resection and radiofrequency ablation. This was last done in February of this year. He is followed by Dr. Juárez. I spoke with Dr. Juárez, patient would be a risk for soft tissue structures. If he is having worsening swallowing difficulty, would recommend consultation. Patient will be admitted, GI consult, reassess. Diagnosis Primary Impression: Oropharyngeal dysphagia Condition: Stable Cleve Sykes MD Jun 23, 2016 16:14
[2016-06-23] MEDS ORDERED: ALPRAZolam 0.25 MG TAB PO PRN (17:00)
--- NOTE | 2016-06-23 17:12 | HHI.HP ---
[facility] Service [facility] Primary Care Physician Unknown Admission Diagnosis dysphagia, stricture Diagnoses: Chief Complaint: Difficulty swallowing Travel History International Travel<30 Days: No Contact w/Intl Traveler <30 Da: No Traveled to Known Affected Are: No History of Present Illness The patient is an 81-year-old male with past medical history of recent femur fracture and dysphagia who is presenting to the hospital with increased feeding difficulties and weakness. The patient has a long-standing history of dysphagia for which she follows with gastroenterology. He has a history of radiofrequency ablation for Fletcher's esophagus and precancerous changes. He was recently hospitalized for multilobar pneumonia, and there was concern for aspiration at that time. He is currently on a diet which is recommended by speech therapy. The patient says that since he broke his femur in April things have been progressing in a bad direction. He says he has not been ambulating since the surgery. He does endorse some discomfort in his throat. He sometimes endorses choking with meals. The emergency department physician did discuss the patient with his buyer tobacco head. Review of Systems ROS Limitations: Poor Historian Constitutional: COMPLAINS OF: Change in appetite Ears, nose, mouth, throat: COMPLAINS OF: Throat pain, Odynophagia Gastrointestinal: COMPLAINS OF: Difficulty Swallowing, DENIES: Constipation, Diarrhea Musculoskeletal: COMPLAINS OF: Joint pain, Stiffness Neurologic: COMPLAINS OF: Abnormal gait Past Family Social History Past Medical History Thoracic compression fracture with retropulsion Prostate cancer Osteoporosis Left femoral neck Fx Pneumonia Fletcher's esophagus and early precancerous changes which were treated with endoscopic resection and radiofrequency ablation Past Surgical History Extracorporeal shockwave lithotripsy Left femoral neck ORIF 05/24/16 Allergies: Coded Allergies: No Known Allergies (Unverified , 06/03/16) Active Ordered Medications Current Medications Medications (Trade) Dose Ordered Sig/Keshia Route Start Time Stop Time Status Last Admin (NS Flush) 2 ml UNSCH PRN IVF 06/23/16 13:45 (Xanax) 0.25 mg Q8H PRN PO 06/23/16 17:00 (Flomax) 0.4 mg DAILY@2100 PO 06/23/16 21:00 (NS Flush) 2 ml UNSCH PRN FLUSH 06/23/16 17:15 UNV (NS Flush) 2 ml BID FLUSH 06/23/16 21:00 UNV (Tylenol) 650 mg Q4H PRN PO 06/23/16 17:15 UNV (Colace) 100 mg Q12H PO 06/23/16 17:15 UNV (Senokot) 17.2 mg Q12H PRN PO 06/23/16 17:15 UNV (Tylenol) 650 mg Q6H PRN PO 06/23/16 17:15 UNV (Narcan Inj) 0.4 mg UNSCH PRN IV 06/23/16 17:15 UNV Family History Denies pertinent family history. Social History The patient quit smoking recently. He also quit drinking. Physical Exam Vital Signs Vital Signs Date Time Temp Pulse Resp B/P Pulse Ox O2 Delivery O2 Flow Rate FiO2 06/23/16 16:00 64 20 106/58 93 Nasal Cannula 2 06/23/16 15:00 68 19 118/57 92 Nasal Cannula 2 06/23/16 14:12 69 20 111/60 93 Nasal Cannula 2 06/23/16 13:34 97.6 63 15 129/62 94 Nasal Cannula 2 Physical Exam GENERAL: Patient appears in no acute distress. He appears cachectic. SKIN: Warm and dry. Poor turgor. HEAD: Atraumatic. Normocephalic. EYES: Pupils equal and round. No scleral icterus. No injection or drainage. ENT: No nasal bleeding or discharge. Mucous membranes pink and dry. Pharynx is clear. Airway is patent. NECK: Trachea midline. No JVD. CARDIOVASCULAR: Regular rate and rhythm. No murmurs gallops or rubs appreciated. RESPIRATORY: No accessory muscle use. Clear to auscultation. Breath sounds equal bilaterally. GASTROINTESTINAL: Abdomen soft, non-tender, nondistended. Hepatic and splenic margins not palpable. No masses appreciated or pain elicited. + BS. MUSCULOSKELETAL: Extremities without clubbing, cyanosis, or edema. No obvious deformities. NEUROLOGICAL: Awake and alert. No obvious cranial nerve deficits. Motor grossly within normal limits. Five out of 5 muscle strength in the arms and legs. Normal speech. PSYCHIATRIC: Appropriate mood and affect. Laboratory Laboratory Tests Test 06/23/16 06/23/16 14:00 14:10 White Blood Count 10.9 Red Blood Count 4.04 Hemoglobin 12.3 Hematocrit 38.3 Mean Corpuscular Volume 94.6 Mean Corpuscular Hemoglobin 30.5 Mean Corpuscular Hemoglobin 32.2 Concent Red Cell Distribution Width 16.0 Platelet Count 289 Mean Platelet Volume 9.1 Neutrophils (%) (Auto) 84.4 Lymphocytes (%) (Auto) 9.4 Monocytes (%) (Auto) 4.8 Eosinophils (%) (Auto) 0.8 Basophils (%) (Auto) 0.6 Neutrophils # (Auto) 9.2 Lymphocytes # (Auto) 1.0 Monocytes # (Auto) 0.5 Eosinophils # (Auto) 0.1 Basophils # (Auto) 0.1 CBC Comment DIFF FINAL Differential Comment Prothrombin Time 11.8 Prothromb Time International 1.1 Ratio Activated Partial 26.8 Thromboplast Time Sodium Level 145 Potassium Level 4.5 Chloride Level 109 Carbon Dioxide Level 33.4 Anion Gap 3 Blood Urea Nitrogen 17 Creatinine 1.01 Estimat Glomerular Filtration 71 Rate Random Glucose 93 Lactic Acid Level 1.4 Calcium Level 8.5 Total Bilirubin 0.4 Aspartate Amino Transf 29 (AST/SGOT) Alanine Aminotransferase 16 (ALT/SGPT) Alkaline Phosphatase 140 Total Protein 6.8 Albumin 2.5 Lipase 46 Urine Color YELLOW Urine Turbidity CLOUDY Urine pH 6.0 Urine Specific [place] 1.022 Urine Protein 30 Urine Glucose (UA) NEG Urine Ketones NEG Urine Occult Blood MOD Urine Nitrite NEG Urine Bilirubin NEG Urine Urobilinogen LESS THAN 2.0 Urine Leukocyte Esterase LARGE Urine Amorphous Sediment MOD Microscopic Urinalysis Comment CULT NOT INDICATED Result Diagram: 06/23/16 1400 06/23/16 1400 Imaging Last Impressions Chest X-Ray 06/23/16 1355 Signed Impressions: Service Date/Time: Thursday, June 23, 2016 14:52 - CONCLUSION: Stable mild infiltrates in the right upper and right lower lung. No significant changes. Slade Carrera MD Assessment and Plan Assessment and Plan Dysphagia The patient has a history of Fletcher's esophagus and is followed by gastroenterology. He has had radiofrequency ablation in the past. He currently endorses throat pain. - speech therapy eval. - GI consult. - PPI. Left femur fracture The pt says he has been bed bound since the surgery. - PT/OT. - pain control as needed. Aspiration pneumonia Recently treated for multilobar pneumonia with concern for aspiration. CXR with stable infiltrates. - diet per speech therapy. - oxygen and nebs as needed. - incentive spirometry. PPx: SCDs, TEDs; PPI. Discussed Condition With Dr. Sykes, pt, pt's nurse. Physician Certification 2 Midnight Certification Type: Admission for Inpatient Services Order for Inpatient Services The services are ordered in accordance with Medicare regulations or non- Medicare payer requirements, as applicable. In the case of services not specified as inpatient-only, they are appropriately provided as inpatient services in accordance with the 2-midnight benchmark. Estimated LOS (days): 2 days is the estimated time the patient will need to remain in the hospital, assuming treatment plan goals are met and no additional complications. Post-Hospital Plan: SNF Tucker Nolasco DO Jun 23, 2016 17:12
[2016-06-23] MEDS ORDERED: ACETAMINOPHEN 325 MG TAB PO PRN ×2 (17:15)
[2016-06-23] MEDS ORDERED: SENNOSIDES 8.6 MG TAB PO PRN (17:15)
[2016-06-23] MEDS ORDERED: SODIUM CHLORIDE 0.9% FLUSH 5 ML FLUSH FLUSH PRN (17:15)
[2016-06-23] MEDS ORDERED: NALOXONE HCL 0.4 MG/ML AMP IV PRN (17:15)
[2016-06-23] MEDS: PANTOPRAZOLE SODIUM 40 MG VIAL IV PUSH SCH (18:19)
[2016-06-23] MEDS: SODIUM CHLORIDE 0.9% FLUSH 5 ML FLUSH FLUSH SCH (21:00)
[2016-06-23] MEDS: DOCUSATE SODIUM 100 MG CAP PO SCH (21:00)
[2016-06-23] MEDS: TAMSULOSIN HCL 0.4 MG CAP PO SCH (21:00)
[2016-06-24 04:00] VITALS: BP 138/67; PULSE 68; RESP 16; TEMP 97.7; O2SAT 95
[2016-06-24 06:06] LABS: AUTOMATED NEUTROPHIL # 7.3 TH/MM3 (1.8-7.7); BASOPHIL # 0.1 TH/MM3 (0-0.2); BASOPHIL % 1.2 % (0.0-2.0); EOSINOPHIL # 0.2 TH/MM3 (0-0.4); EOSINOPHIL % 1.8 % (0.0-4.0); HEMATOCRIT 29.9 % (39.0-51.0); HEMO FLAGS DIFF FINAL; LYMPH % 10.1 % (9.0-44.0); LYMPHOCYTE # 0.9 TH/MM3 (1.0-4.8); MEAN CELL VOLUME 92.9 FL (80.0-100.0); MEAN CORPUSCULAR HEMOGLOBIN 30.7 PG (27.0-34.0); MONO % 5.6 % (0.0-8.0); NEUT % 81.3 % (16.0-70.0); PLATELET COUNT 232 TH/MM3 (150-450); RED BLOOD COUNT 3.22 MIL/MM3 (4.50-5.90); RED CELL DISTRIBUTION WIDTH 15.9 % (11.6-17.2); WHITE BLOOD COUNT 8.9 TH/MM3 (4.0-11.0)
[2016-06-24 08:00] VITALS: BP 128/59; PULSE 67; RESP 20; TEMP 97.6; O2SAT 96
[2016-06-24 08:38] VITALS: O2SAT 95
[2016-06-24] MEDS: DOCUSATE SODIUM 100 MG CAP PO SCH (09:00)
[2016-06-24] MEDS: SODIUM CHLORIDE 0.9% FLUSH 5 ML FLUSH FLUSH SCH ×2 (10:28→22:12)
[2016-06-24] MEDS: DEXT 5%-NACL 0.45% 1000 ML INJ 1,000 ML IV SCH ×2 (10:28→22:11)
--- NOTE | 2016-06-24 10:57 | MB ---
cc: MICKIE CRUZ DATE OF CONSULTATION: 06/24/2016 DATE OF : 1935 REASON FOR CONSULTATION Patient with dysphagia. HISTORY OF PRESENT ILLNESS Mr. Lundberg is a very pleasant 81-year-old gentleman with past medical history significant for prostate cancer, osteoporosis with previous left femoral neck fracture, aspiration pneumonia, dementia and history of Fletcher's esophagus with focal adenocarcinoma noted on biopsy done August 11, 2015 status post endoscopic mucosal resection and radiofrequency ablation, who presented to the hospital complaining of failure to thrive and dysphagia. The patient's last endoscopy was done last year for surveillance of Fletcher's esophagus. A session of radiofrequency ablation was performed as well as dilation with a Savary dilator up to 17 mm for a mild Schatzki ring noted during procedure. The patient also had a history at that time of esophageal candidiasis which was treated with fluconazole and Diflucan swish and swallow. The patient was doing well until recently. He was hospitalized for multilobar pneumonia concerning for possible aspiration. He had a femur fracture this past April which has made him progressively weaker without being able to ambulate. Currently he denies any pain on swallowing, denies any sensation food getting stuck in his chest or chest pain. He did endorse some choking with meals. He was being evaluated by speech therapy before our interview and it seems like he has some oropharyngeal transfer issues where speech pathology is recommending a puree diet. PAST MEDICAL HISTORY 1. Prostate cancer. 2. Osteoporosis. 3. Left femoral neck fracture. 4. Pneumonia. 5. Fletcher's esophagus with focal adenocarcinoma status post endoscopic mucosal resection and radiofrequency ablation. PAST SURGICAL HISTORY 1.renal lithotripsy. 2. Left femoral neck ORIF. 3. Endoscopies with endoscopic mucosal resection and radiofrequency ablation. ALLERGIES No known drug allergies. MEDICATIONS 1. Tamsulosin 0.4 mg p.o. daily. 2. Docusate 100 mg p.o. q.12h. 3. Pantoprazole 40 mg IV q.12h. 4. Senokot 17.2 mg q.12h. p.r.n. 5. Acetaminophen 650 mg p.o. q.6h. p.r.n. 6. Alprazolam 0.25 mg q.h.s. p.r.n. FAMILY HISTORY Noncontributory. SOCIAL HISTORY He recently quit smoking and drinking. Denies any illegal drug use. REVIEW OF SYSTEMS Significant for difficulty swallowing, weakness and anorexia. Otherwise, a 14-point review of systems is negative. PHYSICAL EXAMINATION VITAL SIGNS: Temperature 97.6, heart rate 67, respiratory rate 20, blood pressure 128/59, satting 96% on room air. GENERAL: He is a frail older gentleman lying comfortably in bed. HEENT: Normocephalic, atraumatic. EOMI. PERRLA. Non-icteric sclera. NECK: Supple. Negative JVD. No lymphadenopathy. CARDIOVASCULAR: Regular rhythm and rate. S1, S2. No murmurs or gallops. PULMONARY: Clear to auscultation bilaterally. ABDOMEN: Soft, nontender to palpation. No hepatosplenomegaly appreciated. Bowel sounds are present. EXTREMITIES: No edema. No cyanosis. Pulses 2+ bilaterally. NEUROLOGIC: He is awake and alert. No focal deficits. LABORATORY DATA White blood cell count is 8.9, hemoglobin 9.9, platelet count 232. Sodium 148, potassium 4, chloride 112, bicarb 31, BUN 16, creatinine 0.91, alkaline phosphatase 140, AST 29, ALT 16, total bilirubin 0.4. IMAGING Chest x-ray showed stable mild infiltrates in the right upper and right lower lung. No significant changes. ASSESSMENT Mr. Lundberg is a pleasant 81-year-old gentleman with past medical history significant for prostate cancer, osteoporosis, history of Fletcher's esophagus with focal intramucosal adenocarcinoma status post endoscopic mucosal resection and radiofrequency ablation sessions, as well as Schatzki ring which was recently dilated late last year, who presented with difficulty swallowing and generalized weakness. PLAN Dysphagia: As per evaluation by speech therapy there seems to be difficulty in oropharyngeal transfer and this correlates with recent episode of aspiration pneumonia. They are recommending to place him on a puree diet which I agree with. It does not seem like there are issues in the lower esophagus since the patient is not complaining of food getting stuck in his chest, chest discomfort or significant reflux. Recommend to continue PPI 40 mg p.o. daily as maintenance therapy for his history of Fletcher's. At this point I do not believe repeat endoscopy is necessary, since the problem seems to be more oropharyngeal than in the distal esophagus. If there are still concerns about that the next step could be getting an esophagram to see if there is any distal stricture, but again it seems less likely. He will be due for a repeat endoscopy in August of this year for surveillance of the Fletcher's. All other medical problems to be addressed by the primary team. We would like to thank Dr. Nolasco for this consultation and allowing us to participate in the care of Mr. Lundberg. Please call us with any questions or concerns. MD JONO Burr/STU /10:04 AM /10:26 AM SAL
[2016-06-24 11:43] VITALS: BP 120/58; PULSE 71; RESP 20; TEMP 96.9; O2SAT 71
--- NOTE | 2016-06-24 15:52 | EKG ---
Date Performed: 06/23/2016 Time Performed: 14:13:37 PTAGE: 81 years EKG: Sinus rhythm NONSPECIFIC T-WAVE ABNORMALITY Compared to prior tracing no significant change BORDERLINE ECG PREVIOUS TRACING : 06/03/2016 18.42 DOCTOR: Riya Smith Interpretating Date/Time 06/24/2016 15:47:20
--- NOTE | 2016-06-24 17:46 | HHI.PR ---
Subjective Remarks The pt was resting comfortably. He said he had mild discomfort but has been able to eat and drink. His was at the bedside and her questions were answered. Discussed with nursing. Objective Vitals Vital Signs Date Time Temp Pulse Resp B/P Pulse Ox O2 Delivery O2 Flow Rate FiO2 06/24/16 11:43 96.9 71 20 120/58 71 06/24/16 08:38 95 Nasal Cannula 3.00 06/24/16 08:00 97.6 67 20 128/59 96 06/24/16 04:00 97.7 68 16 138/67 95 06/23/16 21:45 97.4 66 14 120/63 95 06/23/16 21:07 93 Nasal Cannula 2.00 06/23/16 19:00 73 18 104/55 96 Room Air 06/23/16 18:00 71 18 121/56 95 Room Air Result Diagram: 06/24/16 0524 06/24/16 0524 Imaging Last Impressions Chest X-Ray 06/23/16 1355 Signed Impressions: Service Date/Time: Thursday, June 23, 2016 14:52 - CONCLUSION: Stable mild infiltrates in the right upper and right lower lung. No significant changes. Slade Carrera MD Objective Remarks GENERAL: Patient appears in no acute distress. He appears cachectic. SKIN: Warm and dry. Poor turgor. HEAD: Atraumatic. Normocephalic. EYES: Pupils equal and round. No scleral icterus. No injection or drainage. ENT: No nasal bleeding or discharge. Mucous membranes pink and dry. Pharynx is clear. Airway is patent. NECK: Trachea midline. No JVD. CARDIOVASCULAR: Regular rate and rhythm. No murmurs gallops or rubs appreciated. RESPIRATORY: No accessory muscle use. Clear to auscultation. Breath sounds equal bilaterally. GASTROINTESTINAL: Abdomen soft, non-tender, nondistended. Hepatic and splenic margins not palpable. No masses appreciated or pain elicited. + BS. MUSCULOSKELETAL: Extremities without clubbing, cyanosis, or edema. No obvious deformities. NEUROLOGICAL: Awake and alert. No obvious cranial nerve deficits. Motor grossly within normal limits. Five out of 5 muscle strength in the arms and legs. Normal speech. PSYCHIATRIC: Appropriate mood and affect. Medications and IVs Current Medications Medications (Trade) Dose Ordered Sig/Keshia Route Start Time Stop Time Status Last Admin (Xanax) 0.25 mg Q8H PRN PO 06/23/16 17:00 (Flomax) 0.4 mg DAILY@2100 PO 06/23/16 21:00 (NS Flush) 2 ml UNSCH PRN FLUSH 06/23/16 17:15 (NS Flush) 2 ml BID FLUSH 06/23/16 21:00 06/24/16 10:28 (Tylenol) 650 mg Q4H PRN PO 06/23/16 17:15 (Colace) 100 mg Q12H PO 06/23/16 21:00 (Senokot) 17.2 mg Q12H PRN PO 06/23/16 17:15 (Tylenol) 650 mg Q6H PRN PO 06/23/16 17:15 (Narcan Inj) 0.4 mg UNSCH PRN IV 06/23/16 17:15 Pantoprazole Sodium 40 mg 40 mg Q24H IV PUSH 06/23/16 18:00 06/23/16 18:19 (D5W-05/25 NS 1000 ml Inj) 1,000 ml @ 75 mls/hr [id number] IV 06/24/16 08:30 06/24/16 10:28 A/P Assessment and Plan Dysphagia The patient has a history of Fletcher's esophagus and is followed by gastroenterology. He has had radiofrequency ablation in the past. He currently endorses throat pain. Appreciate GI consult. - speech therapy eval appreciated. - follow up with GI as an outpt. - PPI. Left femur fracture The pt says he has been bed bound since the surgery. - PT/OT. Consider SNF vs. [facility]. soda fountain manager consulted. - pain control as needed. Aspiration pneumonia Recently treated for multilobar pneumonia with concern for aspiration. CXR with stable infiltrates. - diet per speech therapy. - oxygen and nebs as needed. - incentive spirometry. Anemia Hemoglobin decreased. He had anemia s/p transfusion on his last admission. - check B12, folate, iron studies, ferritin, Hemoccult. - follow CBC and transfuse as needed. PPx: SCDs, TEDs; PPI. Discharge Planning Likely d/c home in AM. Tucker Nolasco DO Jun 24, 2016 17:45
[2016-06-24 17:59] VITALS: BP 147/65; PULSE 68; RESP 18; TEMP 98.8; O2SAT 98
[2016-06-24] MEDS: PANTOPRAZOLE SODIUM 40 MG VIAL IV PUSH SCH (18:11)
[2016-06-24] MEDS: ACETAMINOPHEN/HYDROcodone 325 MG/5 MG TAB PO PRN (18:11)
[2016-06-24 20:10] VITALS: BP 121/56; PULSE 58; RESP 18; TEMP 98.5; O2SAT 99
[2016-06-24 20:24] LABS: FERRITIN 254 NG/ML (26-388); TRANSFERRIN IRON PROFILE 108 MG/DL (200-360)
[2016-06-24] MEDS: TAMSULOSIN HCL 0.4 MG CAP PO SCH (22:52)
[2016-06-25 00:56] VITALS: BP 110/58; PULSE 56; RESP 16; TEMP 98.5; O2SAT 96
[2016-06-25 06:28] VITALS: BP 113/57; PULSE 59; RESP 18; TEMP 97.8; O2SAT 96
[2016-06-25 06:39] LABS: BICARBONATE 29.8 MEQ/L (21.0-32.0); MAGNESIUM 1.7 MG/DL (1.5-2.5); POTASSIUM 3.8 MEQ/L (3.5-5.1)
[2016-06-25 06:40] VITALS: O2SAT 97
[2016-06-25 06:46] LABS: HEMATOCRIT 33.1 % (39.0-51.0); MEAN CELL VOLUME 93.5 FL (80.0-100.0); MEAN CORPUSCULAR HEMOGLOBIN 31.1 PG (27.0-34.0); MEAN CORPUSCULAR HGB CONC 33.2 % (32.0-36.0); PLATELET COUNT 227 TH/MM3 (150-450); RED BLOOD COUNT 3.54 MIL/MM3 (4.50-5.90); RED CELL DISTRIBUTION WIDTH 16.1 % (11.6-17.2); REVIEW FLAG FINAL; WHITE BLOOD COUNT 9.2 TH/MM3 (4.0-11.0)
[2016-06-25] MEDS ORDERED: NORC5TAB PO (08:49)
[2016-06-25] MEDS ORDERED: ALPR.25 PO (08:49)
[2016-06-25] MEDS ORDERED: PANT40TA3 PO (08:49)
--- NOTE | 2016-06-25 08:50 | HHI.DCPOC ---
Discharge Care Plan Diagnosis: (1) Hypernatremia (2) s/p left femoral orif (3) Aspiration pneumonia (4) Dysphagia Goals to Promote Your Health * To prevent worsening of your condition and complications * To maintain your health at the optimal level Directions to Meet Your Goals Take your medications as prescribed Follow your dietary instruction Follow activity as directed Keep your appointments as scheduled Take your immunizations and boosters as scheduled If your symptoms worsen call your PCP, if no PCP go to Urgent Care Center or Emergency Room Smoking is Dangerous to Your Health. Avoid second hand smoke Call the 24-hour hour crisis hotline for domestic abuse at Tucker Nolasco DO Jun 25, 2016 08:50
--- NOTE | 2016-06-25 08:56 | HHI.PR ---
Subjective Remarks The pt was resting comfortably in bed. He said he didn't have pain at this time. He said his breathing was OK. Discussed with nursing. Objective Vitals Vital Signs Date Time Temp Pulse Resp B/P Pulse Ox O2 Delivery O2 Flow Rate FiO2 06/25/16 06:40 97 Nasal Cannula 3.00 06/25/16 06:28 97.8 59 18 113/57 96 06/25/16 00:56 98.5 56 16 110/58 96 06/24/16 20:10 98.5 58 18 121/56 99 06/24/16 19:29 18 06/24/16 17:59 98.8 68 18 147/65 98 06/24/16 11:43 96.9 71 20 120/58 71 I/O 06/24/16 06/24/16 06/24/16 06/25/16 06/25/16 06/25/16 07:00 15:00 23:00 07:00 15:00 23:00 Intake Total 1441 ml Output Total 50 ml Balance 1391 ml Intake Oral 240 ml IV Total 1201 ml Output Urine Total 50 ml Result Diagram: 06/25/16 0525 06/25/16 0525 Imaging Last Impressions Chest X-Ray 06/23/16 1355 Signed Impressions: Service Date/Time: Thursday, June 23, 2016 14:52 - CONCLUSION: Stable mild infiltrates in the right upper and right lower lung. No significant changes. Slade Carrera MD Objective Remarks GENERAL: Patient appears in no acute distress. He appears cachectic. SKIN: Warm and dry. Poor turgor. HEAD: Atraumatic. Normocephalic. EYES: Pupils equal and round. No scleral icterus. No injection or drainage. ENT: No nasal bleeding or discharge. Mucous membranes pink and dry. Pharynx is clear. Airway is patent. NECK: Trachea midline. No JVD. CARDIOVASCULAR: Regular rate and rhythm. No murmurs gallops or rubs appreciated. RESPIRATORY: No accessory muscle use. Clear to auscultation. Breath sounds equal bilaterally. GASTROINTESTINAL: Abdomen soft, non-tender, nondistended. Hepatic and splenic margins not palpable. No masses appreciated or pain elicited. + BS. MUSCULOSKELETAL: Extremities without clubbing, cyanosis, or edema. No obvious deformities. NEUROLOGICAL: Awake and alert. No obvious cranial nerve deficits. Motor grossly within normal limits. Five out of 5 muscle strength in the arms and legs. Normal speech. PSYCHIATRIC: Appropriate mood and affect. Procedures None. Medications and IVs Current Medications Medications (Trade) Dose Ordered Sig/Keshia Route Start Time Stop Time Status Last Admin (Xanax) 0.25 mg Q8H PRN PO 06/23/16 17:00 (Flomax) 0.4 mg DAILY@2100 PO 06/23/16 21:00 06/24/16 22:52 (NS Flush) 2 ml UNSCH PRN FLUSH 06/23/16 17:15 (NS Flush) 2 ml BID FLUSH 06/23/16 21:00 06/24/16 22:12 (Tylenol) 650 mg Q4H PRN PO 06/23/16 17:15 (Senokot) 17.2 mg Q12H PRN PO 06/23/16 17:15 (Tylenol) 650 mg Q6H PRN PO 06/23/16 17:15 (Narcan Inj) 0.4 mg UNSCH PRN IV 06/23/16 17:15 Pantoprazole Sodium 40 mg 40 mg Q24H IV PUSH 06/23/16 18:00 06/24/16 18:11 (D5W-05/25 NS 1000 ml Inj) 1,000 ml @ 75 mls/hr [id number] IV 06/24/16 08:30 06/24/16 22:11 (Adel 5-325 Mg) 1 tab Q4H PRN PO 06/24/16 17:45 06/24/16 18:11 A/P Assessment and Plan Dysphagia The patient has a history of Fletcher's esophagus and is followed by gastroenterology. He has had radiofrequency ablation in the past. He currently endorses throat pain. Appreciate GI consult. - speech therapy eval appreciated. Diet per speech. Continue ST upon discharge. - follow up with GI as an outpt. - PPI. Left femur fracture The pt says he has been bed bound since the surgery. - PT/OT. Consider SNF vs. [facility] center manager consulted. - pain control as needed. Aspiration pneumonia Recently treated for multilobar pneumonia with concern for aspiration. CXR with stable mild infiltrates. Still requiring oxygen. - diet per speech therapy. - oxygen and nebs as needed. - incentive spirometry. - refer to pulmonology as an outpt. Anemia Hemoglobin has been stable. - follow up with PCP. - Hemoccult requested. Groin rash Pt with erythema around groin area. - trial of nystatin cream. PPx: SCDs, TEDs; PPI. Discharge Planning D/c to SNF. Tucker Nolasco DO Jun 25, 2016 08:56
[2016-06-25] MEDS ORDERED: NYST15T TOPICAL (10:14)
[2016-06-25] MEDS: SODIUM CHLORIDE 0.9% FLUSH 5 ML FLUSH FLUSH SCH ×2 (10:18→20:53)
[2016-06-25] MEDS: NYSTATIN 100,000 UNIT/GM CREAM 15 GM TOPICAL SCH ×2 (10:18→20:55)
[2016-06-25 11:10] VITALS: BP 127/60; PULSE 56; RESP 20; TEMP 97.8; O2SAT 94
[2016-06-25] MEDS: DEXT 5%-NACL 0.45% 1000 ML INJ 1,000 ML IV SCH ×2 (11:10→21:00)
[2016-06-25 16:14] VITALS: BP 130/58; PULSE 81; RESP 20; TEMP 97.4
[2016-06-25] MEDS: ACETAMINOPHEN/HYDROcodone 325 MG/5 MG TAB PO PRN (16:19)
[2016-06-25] MEDS: PANTOPRAZOLE SODIUM 40 MG VIAL IV PUSH SCH (17:58)
[2016-06-25 19:12] VITALS: O2SAT 94
[2016-06-25] MEDS: TAMSULOSIN HCL 0.4 MG CAP PO SCH (20:52)
[2016-06-26 03:13] VITALS: BP 132/71; PULSE 79; RESP 18; TEMP 97.9; O2SAT 97
[2016-06-26 07:12] VITALS: BP 107/58; PULSE 63; RESP 18; TEMP 97.7; O2SAT 90
[2016-06-26 08:06] VITALS: O2SAT 94
--- NOTE | 2016-06-26 08:57 | HHI.PR ---
Subjective Remarks The patient complained of pain in his left hip. He also said that his throat was bothering him and he had some discomfort there. He says he has been breathing well. He said he would like some pain medication. He had no other acute complaints. Objective Vitals Vital Signs Date Time Temp Pulse Resp B/P Pulse Ox O2 Delivery O2 Flow Rate FiO2 06/26/16 08:06 94 Nasal Cannula 3.00 06/26/16 07:12 97.7 63 18 107/58 90 06/26/16 03:13 97.9 79 18 132/71 97 06/25/16 19:12 94 Nasal Cannula 3.00 06/25/16 16:14 97.4 81 20 130/58 06/25/16 11:10 97.8 56 20 127/60 94 I/O 06/25/16 06/25/16 06/25/16 06/26/16 06/26/16 06/26/16 07:00 15:00 23:00 07:00 15:00 23:00 Intake Total 1441 ml 250 ml Output Total 50 ml 250 ml Balance 1391 ml 0 ml Intake Oral 240 ml 250 ml IV Total 1201 ml Output Urine Total 50 ml 250 ml Result Diagram: 06/25/16 0525 06/25/16 0525 Imaging Last Impressions Chest X-Ray 06/23/16 1355 Signed Impressions: Service Date/Time: Thursday, June 23, 2016 14:52 - CONCLUSION: Stable mild infiltrates in the right upper and right lower lung. No significant changes. Slade Carrera MD Objective Remarks GENERAL: Patient appears in no acute distress. He appears cachectic. SKIN: Warm and dry. Poor turgor. HEAD: Atraumatic. Normocephalic. EYES: Pupils equal and round. No scleral icterus. No injection or drainage. ENT: No nasal bleeding or discharge. Mucous membranes pink and dry. Pharynx is clear. Airway is patent. NECK: Trachea midline. No JVD. CARDIOVASCULAR: Regular rate and rhythm. No murmurs gallops or rubs appreciated. RESPIRATORY: No accessory muscle use. Clear to auscultation. Breath sounds equal bilaterally. GASTROINTESTINAL: Abdomen soft, non-tender, nondistended. Hepatic and splenic margins not palpable. No masses appreciated or pain elicited. + BS. MUSCULOSKELETAL: Extremities without clubbing, cyanosis, or edema. No obvious deformities. Left hip tender to palpation. NEUROLOGICAL: Awake and alert. No obvious cranial nerve deficits. Motor grossly within normal limits. Five out of 5 muscle strength in the arms and legs. Normal speech. PSYCHIATRIC: Appropriate mood and affect. Procedures None. Medications and IVs Current Medications Medications (Trade) Dose Ordered Sig/Keshia Route Start Time Stop Time Status Last Admin (Xanax) 0.25 mg Q8H PRN PO 06/23/16 17:00 (Flomax) 0.4 mg DAILY@2100 PO 06/23/16 21:00 06/25/16 20:52 (NS Flush) 2 ml UNSCH PRN FLUSH 06/23/16 17:15 06/25/16 17:58 (NS Flush) 2 ml BID FLUSH 06/23/16 21:00 06/25/16 20:53 (Tylenol) 650 mg Q4H PRN PO 06/23/16 17:15 (Senokot) 17.2 mg Q12H PRN PO 06/23/16 17:15 (Tylenol) 650 mg Q6H PRN PO 06/23/16 17:15 (Narcan Inj) 0.4 mg UNSCH PRN IV 06/23/16 17:15 Pantoprazole Sodium 40 mg 40 mg Q24H IV PUSH 06/23/16 18:00 06/25/16 17:58 (D5W-05/25 NS 1000 ml Inj) 1,000 ml @ 75 mls/hr [id number] IV 06/24/16 08:30 06/25/16 21:00 (Colp 5-325 Mg) 1 tab Q4H PRN PO 06/24/16 17:45 06/25/16 16:19 (Mycostatin Cream) 1 applic Q12HR TOPICAL 06/25/16 10:00 06/25/16 20:55 A/P Assessment and Plan Dysphagia The patient has a history of Fletcher's esophagus and is followed by gastroenterology. He has had radiofrequency ablation in the past. He currently endorses throat pain. Appreciate GI consult. - speech therapy eval appreciated. Diet per speech. Continue ST upon discharge. - follow up with GI as an outpt. - PPI. - Chloraseptic throat spray as needed. Left femur fracture The pt says he has been bed bound since the surgery. - PT/OT. Consider SNF vs. HHC. account financial manager consulted. The patient doesn't want to go back to [facility], currently exploring other options. - pain control as needed. Aspiration pneumonia Recently treated for multilobar pneumonia with concern for aspiration. CXR with stable mild infiltrates. Still requiring oxygen. - diet per speech therapy. - oxygen and nebs as needed. - incentive spirometry. - refer to pulmonology as an outpt. Anemia Hemoglobin has been stable. - follow up with PCP. - Hemoccult requested. Groin rash Pt with erythema around groin area. - trial of nystatin cream. PPx: SCDs, TEDs; PPI. Discharge Planning D/c to SNF when bed available. Tucker Nolasco DO Jun 26, 2016 08:57
[2016-06-26] MEDS ORDERED: PHENOL 1.4% SOLN 180 ML BTL OROPHARYNG ONE (09:00)
[2016-06-26] MEDS: SODIUM CHLORIDE 0.9% FLUSH 5 ML FLUSH FLUSH SCH (09:00)
[2016-06-26] MEDS ORDERED: PHENOL 1.4% SOLN 180 ML BTL OROPHARYNG PRN (09:00)
[2016-06-26] MEDS ORDERED: ACETAMINOPHEN/HYDROcodone 325 MG/5 MG TAB PO ONE (09:00)
[2016-06-26] MEDS: NYSTATIN 100,000 UNIT/GM CREAM 15 GM TOPICAL SCH (09:59)
[2016-06-26 10:32] LABS: AUTOMATED NEUTROPHIL # 11.1 TH/MM3 (1.8-7.7); BASOPHIL # 0.1 TH/MM3 (0-0.2); BASOPHIL % 0.7 % (0.0-2.0); EOSINOPHIL # 0.1 TH/MM3 (0-0.4); HEMATOCRIT 35.1 % (39.0-51.0); HEMO FLAGS DIFF FINAL; LYMPH % 6.1 % (9.0-44.0); LYMPHOCYTE # 0.8 TH/MM3 (1.0-4.8); MEAN CELL VOLUME 93.1 FL (80.0-100.0); MEAN CORPUSCULAR HEMOGLOBIN 30.6 PG (27.0-34.0); MEAN CORPUSCULAR HGB CONC 32.9 % (32.0-36.0); MONO % 5.1 % (0.0-8.0); NEUT % 87.1 % (16.0-70.0); PLATELET COUNT 228 TH/MM3 (150-450); RED BLOOD COUNT 3.77 MIL/MM3 (4.50-5.90); RED CELL DISTRIBUTION WIDTH 15.5 % (11.6-17.2); WHITE BLOOD COUNT 12.7 TH/MM3 (4.0-11.0)
[2016-06-26] MEDS ORDERED: LACTCHW3 CHEW (10:49)
[2016-06-26] MEDS ORDERED: AUGM875T PO (10:49)
--- NOTE | 2016-06-26 10:54 | HHI.DS ---
Discharge Summary Admission Date Jun 23, 2016 at 16:10 Discharge Date: Jun 26, 2016 Admitting Diagnosis dysphagia, stricture (1) s/p left femoral orif (2) Aspiration pneumonia ICD Code: J69.0 (3) Hypernatremia ICD Code: E87.0 (4) Dysphagia ICD Code: R13.10 Diagnosis: Principal Procedures None. Brief History - From Admission The patient is an 81-year-old male with past medical history of recent femur fracture and dysphagia who is presenting to the hospital with increased feeding difficulties and weakness. The patient has a long-standing history of dysphagia for which she follows with gastroenterology. He has a history of radiofrequency ablation for Fletcher's esophagus and precancerous changes. He was recently hospitalized for multilobar pneumonia, and there was concern for aspiration at that time. He is currently on a diet which is recommended by speech therapy. The patient says that since he broke his femur in April things have been progressing in a bad direction. He says he has not been ambulating since the surgery. He does endorse some discomfort in his throat. He sometimes endorses choking with meals. 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 CBC/BMP: 06/26/16 1010 06/25/16 0525 Significant Findings Laboratory Tests Test 06/23/16 06/23/16 06/24/16 06/25/16 14:00 14:10 05:24 05:25 Red Blood Count 4.04 MIL/MM3 3.22 MIL/MM3 3.54 MIL/MM3 (4.50-5.90) (4.50-5.90) (4.50-5.90) Hemoglobin 12.3 GM/DL 9.9 GM/DL 11.0 GM/DL (13.0-17.0) (13.0-17.0) (13.0-17.0) Hematocrit 38.3 % 29.9 % 33.1 % (39.0-51.0) (39.0-51.0) (39.0-51.0) Neutrophils (%) (Auto) 84.4 % 81.3 % (16.0-70.0) (16.0-70.0) Neutrophils # (Auto) 9.2 TH/MM3 (1.8-7.7) Prothrombin Time 11.8 SEC (9.8-11.6) Chloride Level 109 MEQ/L 112 MEQ/L (98-107) (98-107) Carbon Dioxide Level 33.4 MEQ/L (21.0-32.0) Anion Gap 3 MEQ/L (5-15) Estimat Glomerular Filtration 71 ML/MIN (>89) 80 ML/MIN (>89) Rate Alkaline Phosphatase 140 U/L (45-117) Albumin 2.5 GM/DL (3.4-5.0) Lipase 46 U/L (73-393) Urine Turbidity CLOUDY (CLEAR) Urine Protein 30 mg/dL (NEG-TRACE) Urine Occult Blood MOD (NEG) Urine Leukocyte Esterase LARGE (NEG) Lymphocytes # (Auto) 0.9 TH/MM3 (1.0-4.8) Sodium Level 148 MEQ/L (136-145) Calcium Level 8.1 MG/DL 8.0 MG/DL (8.5-10.1) (8.5-10.1) Iron Level 45 MCG/DL (65-175) Total Iron Binding Capacity 151 MCG/DL (250-450) Test 06/26/16 10:10 White Blood Count 12.7 TH/MM3 (4.0-11.0) Red Blood Count 3.77 MIL/MM3 (4.50-5.90) Hemoglobin 11.6 GM/DL (13.0-17.0) Hematocrit 35.1 % (39.0-51.0) Neutrophils (%) (Auto) 87.1 % (16.0-70.0) Lymphocytes (%) (Auto) 6.1 % (9.0-44.0) Neutrophils # (Auto) 11.1 TH/MM3 (1.8-7.7) Lymphocytes # (Auto) 0.8 TH/MM3 (1.0-4.8) Imaging Last Impressions Chest X-Ray 06/23/16 9806 Signed Impressions: Service Date/Time: Thursday, June 23, 2016 14:52 - CONCLUSION: Stable mild infiltrates in the right upper and right lower lung. No significant changes. Slade Carrera MD PE at Discharge GENERAL: Patient appears in no acute distress. He appears cachectic. SKIN: Warm and dry. Poor turgor. HEAD: Atraumatic. Normocephalic. EYES: Pupils equal and round. No scleral icterus. No injection or drainage. ENT: No nasal bleeding or discharge. Mucous membranes pink and dry. Pharynx is clear. Airway is patent. NECK: Trachea midline. No JVD. CARDIOVASCULAR: Regular rate and rhythm. No murmurs gallops or rubs appreciated. RESPIRATORY: No accessory muscle use. Clear to auscultation. Breath sounds equal bilaterally. GASTROINTESTINAL: Abdomen soft, non-tender, nondistended. Hepatic and splenic margins not palpable. No masses appreciated or pain elicited. + BS. MUSCULOSKELETAL: Extremities without clubbing, cyanosis, or edema. No obvious deformities. Left hip tender to palpation. NEUROLOGICAL: Awake and alert. No obvious cranial nerve deficits. Motor grossly within normal limits. Five out of 5 muscle strength in the arms and legs. Normal speech. PSYCHIATRIC: Appropriate mood and affect. Hospital Course Dysphagia The patient has a history of Fletcher's esophagus and is followed by gastroenterology. He has had radiofrequency ablation in the past. He currently endorses throat pain. GI was consulted. Speech therapy evaluated the pt. He will continue ST upon discharge. The pt will follow up with GI as an outpt. He will continue a PPI. He received Chloraseptic throat spray as needed. Left femur fracture The pt says he has been bed bound since the surgery. He worked with PT/OT. software test manager was consulted. The patient will be discharged to a fpc facility. He received pain control as needed. Aspiration pneumonia Recently treated for multilobar pneumonia with concern for aspiration. CXR with stable mild infiltrates. Still requiring oxygen. Has leukocytosis. He was placed on a diet per speech therapy. He received oxygen and nebs as needed as well as incentive spirometry. The pt will be referred to pulmonology upon discharge. He will complete a course of Augmentin. Groin rash Pt with erythema around groin area. Nystatin cream was ordered. Pt Condition on Discharge: Stable Discharge Disposition: Discharge to SNF Discharge Time: > 30 minutes Discharge Instructions DIET: Follow Instructions for: As Tolerated, No Restrictions Speech Therapy-Diet Recommends: Pureed, Pudding Thickened Liquids Activities you can perform: Weight Bearing as Jhonny Follow up Referrals: Gastroenterology - 2 Weeks with Mk Juárez MD Orthopedics - 1 Week PCP Follow-up - 1 Week Pulmonology - 1 Week with Regan Quarles MD New Orders: Speech Therapy - 2-3 Days New Medications: Amoxicillin-Clavulanate (Augmentin) 875-125 mg Tab 875 MG PO BID not for use in CrCl <30 ml/min. Infection #14 Ref 0 TAB Lactobacillus Acidophilus (Lactinex) 1 Chew 1 TAB CHEW TID Nutritional Supplement #21 Ref 0 TAB Pantoprazole (Pantoprazole) 40 Mg Tab 40 MG PO DAILY Reflux #30 Ref 0 TAB Nystatin Topical (Nystatin Topical) 100,000 unit/gm Cream 1 APPLIC TOPICAL Q12HR Rash #1 TUBE Continued Medications: Alprazolam (Xanax) 0.25 Mg Tab 0.25 MG PO Q8H PRN ANXIETY #12 Ref 0 TAB (This prescription has been renewed) Docusate Sodium (Colace) 100 Mg Cap 100 MG PO BID PRN Constipation #60 Ref 0 CAP Hydrocodone-Acetaminophen ([place]) 5-325 mg Tab 1 TAB PO Q4H PRN PAIN #20 Ref 0 TAB (This prescription has been renewed) Ipratropium-Albuterol Neb (Duoneb) 0.5-2.5 Mg/3 Ml Neb 1 AMPULE NEB Q4HR NEB PRN wheezing #120 ML Tamsulosin (Flomax) 0.4 Mg Cap 0.4 MG PO DAILY@2100 urine retention #30 CAP Discontinued Medications: Clindamycin Liq (Cleocin Pediatric Granule Liq) 75 Mg/5 Ml Soln 300 MG PO Q6HR Infection Days 7 ML Levofloxacin (Levaquin) 750 Mg Tab 750 MG PO DAILY@11 Infection #7 TAB Tucker Nolasco DO Jun 26, 2016 10:54
[2016-06-26 10:56] LABS: BICARBONATE 28.1 MEQ/L (21.0-32.0); MAGNESIUM 1.6 MG/DL (1.5-2.5); POTASSIUM 3.5 MEQ/L (3.5-5.1)
--- NOTE | 2016-06-26 14:38 | RADRPT ---
EXAM DATE/TIME: 06/26/2016 00:00 [place] COMPARISON: No previous studies available for comparison. INDICATIONS : Dysphagia. FLUORO TIME: 1.8 minutes IMAGE COUNT: 0 CONTRAST: Dose as prescribed by speech pathologist. MEDICAL HISTORY : dubois's esophagus SURGICAL HISTORY : None. ENCOUNTER: Initial ACUITY: 1 day PAIN SCORE: 0/10 LOCATION: Bilateral neck FINDINGS: A modified barium swallow was performed with speech pathology. Patient was given a variety of liquids to swallow. No evidence of aspiration. For a full detailed report, see report by the speech pathologist. CONCLUSION: No evidence of aspiration. Dennis Wolf MD on June 26, 2016 at 14:36 Board Certified Radiologist. This report was verified electronically.
[2016-06-26 15:02] VITALS: BP 153/68; PULSE 82; RESP 18; O2SAT 97
[2016-06-26] MEDS: DEXT 5%-NACL 0.45% 1000 ML INJ 1,000 ML IV SCH (16:26)
== END 2016-06-26 18:33 | disposition home or self-care (01) ==
LOC: NEPA 13:25 → INTOOBSV 16:10 → NEDA 16:10 → NEPFCDU 21:33
PROVIDERS: ADMIT Hospitalist; ATTEND Hospitalist
DX: J69.0 Pneumonitis due to inhalation of food and vomit (principal); R13.12 Dysphagia, oropharyngeal phase; S72.92XA Unspecified fracture of left femur, initial encounter for closed fracture; K22.70 Barrett's esophagus without dysplasia; K22.2 Esophageal obstruction; M81.0 Age-related osteoporosis without current pathological fracture; E87.0 Hyperosmolality and hypernatremia; R94.31 Abnormal electrocardiogram [ECG] [EKG]; D64.9 Anemia, unspecified; F03.90 Unspecified dementia, unspecified severity, without behavioral disturbance, psychotic disturbance, mood disturbance, and anxiety; Z72.0 Tobacco use; Z74.01 Bed confinement status; Z85.46 Personal history of malignant neoplasm of prostate; M25.552 Pain in left hip
CPT/HCPCS: 71010; 74230; 80048; 80053; 81001; 82607; 82728; 82746; 83540; 83550; 83605; 83690; 83735; 84100; 85025; 85027; 85610; 85730; 92526; 92610; 92611; 93005; 94150; 97110; 97163; 97167; 97530; 97535; 99285; C9113; G0378; G8987; G8988; G8996; G8997; G8998

== ENCOUNTER 2016-07-29 18:04 | Emergency (ER) | payer OTHER ==
[~2016-07-29 18:04] MED LIST changes: +AUGM875T PO; -CLIN75S PO; +LACTCHW3 CHEW; -LEVA750T PO; +NYST15T TOPICAL; +PANT40TA3 PO
[2016-07-29 18:33] VITALS: BP 128/70; PULSE 82; RESP 24; TEMP 98.3; O2SAT 97
--- NOTE | 2016-07-29 18:34 | PD ---
Physical Exam Date Seen by Provider: Jul 29, 2016 Time Seen by Provider: 18:32 Narrative 81-year-old male came to the emergency room sent by the detention for an abnormal arterial duplex for his lower extremities. The duplex is read as calcified and noncalcified plaques with poor flow. Patient is in no discomfort currently. He says he has occasional pain in his legs especially the left. There were no palpable pulses. The color appeared to be equal bilaterally and decent cap refill. Bilateral dopplerable pulses for DP was present. Patient is seen by the nurse practitioner and I am supervising her. I recommended to call the vascular surgeon and discussed the case with him before ordering any further tests since patient is in no acute distress and this could be chronic obstruction. Awaiting for the last few surgeon to call back. Data Data Last Documented VS Vital Signs Date Time Temp Pulse Resp B/P Pulse Ox O2 Delivery O2 Flow Rate FiO2 07/29/16 20:36 68 16 112/76 95 Nasal Cannula 4 07/29/16 18:33 98.3 MDM Supervised Visit with BRET: Yes Abelardo Jacobson MD Jul 29, 2016 18:34
--- NOTE | 2016-07-29 18:43 | PD ---
HPI Chief Complaint: Pain: Acute or Chronic Time Seen by Provider: 18:33 Travel History International Travel<30 days: No Contact w/Intl Traveler<30days: No History of Present Illness HPI 81-year-old male presents to the emergency department for partial nursing and rehabilitation for evaluation of abnormal arterial bilateral duplex lower extremity exam. The patient is unsure why he is here in the emergency department. However, upon contact of the longterm, they state that he is here due to this exam. The patient denies any complaints at this time. 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 He reports intermittent pain to the left leg, but denies any pain at this time. He has no complaints. Patient has a PMH of thoracic compression fracture with retropulsion, prostate cancer, osteoporosis, left femoral neck Fx, pneumonia, Fletcher's esophagus and early precancerous changes which were treated with endoscopic resection and radiofrequency ablation. PFSH Past Medical History Cancer: Yes (PROSTATE) Cardiovascular Problems: No Chemotherapy: No Diabetes: No Diminished Hearing: No Endocrine: No Gastrointestinal Disorders: Yes (NAUSEA VOMITING, CONSTIPATION) Genitourinary: No Hepatitis: No Hiatal Hernia: No Hypertension: No Immune Disorder: No Musculoskeletal: Yes Neurologic: Yes Psychiatric: No Respiratory: No Radiation Therapy: No Thyroid Disease: No Past Surgical History Abdominal Surgery: No Cardiac Surgery: No Ear Surgery: No Endocrine Surgery: No Eye Surgery: No Genitourinary Surgery: Yes (ESWL) Joint Replacement: No Neurologic Surgery: No Oral Surgery: No Pacemaker: No Thoracic Surgery: No Other Surgery: Yes (KYOPLASTY) Social History Alcohol Use: Yes (DAILY BEER OR WINE) Tobacco Use: Yes (3 CIGS PER DAY) Substance Use: No Allergies-Medications (Allergen,Severity, Reaction): Coded Allergies: No Known Allergies (Unverified , 06/03/16) Reported Meds & Prescriptions Reported Meds & Active Scripts Active Lactinex (Lactobacillus Acidophilus) 1 Chew 1 Tab CHEW TID Augmentin (Amoxicillin-Clavulanate) 875-125 mg Tab 875 Mg PO BID not for use in CrCl <30 ml/min. Nystatin Topical (Nystatin) 100,000 unit/gm Cream 1 Applic TOPICAL Q12HR Pantoprazole (Pantoprazole Sodium) 40 Mg Tab 40 Mg PO DAILY Xanax (Alprazolam) 0.25 Mg Tab 0.25 Mg PO Q8H PRN [place] (Hydrocodone-Acetaminophen) 5-325 mg Tab 1 Tab PO Q4H PRN Flomax (Tamsulosin HCl) 0.4 Mg Cap 0.4 Mg PO DAILY@2100 Duoneb (Ipratropium-Albuterol Neb) 0.5-2.5 Mg/3 Ml Neb 1 Ampule NEB Q4HR NEB PRN Colace (Docusate Sodium) 100 Mg Cap 100 Mg PO BID PRN Review of Systems Except as stated in HPI: all other systems reviewed are Neg Physical Exam Narrative GENERAL: Well-developed well-nourished elderly male patient, afebrile SKIN: Warm and dry. HEAD: Normocephalic. Atraumatic. EYES: No scleral icterus. No injection or drainage. NECK: Supple, trachea midline. No JVD or lymphadenopathy. CARDIOVASCULAR: Regular rate and rhythm without murmurs, gallops, or rubs. Bilateral pedal pulses are easily dopplerable. Capillary refill less than 2 seconds. Patient denies any pain to his bilateral lower extremities at this time. RESPIRATORY: Breath sounds equal bilaterally. No accessory muscle use. Lungs sounds diminished throughout. GASTROINTESTINAL: Abdomen soft, non-tender, nondistended. MUSCULOSKELETAL: No cyanosis, or edema. BACK: Nontender without obvious deformity. No CVA tenderness. MDM Medical Decision Making Medical Screen Exam Complete: Yes Emergency Medical Condition: Yes Medical Record Reviewed: Yes Differential Diagnosis Chronic arterial occlusion versus acute arterial occlusion versus medical clearance Narrative Course 81-year-old male presents to the emergency department sent by [facility] for abnormal arterial bilateral duplex lower extremities. The patient denies any complaints at this time. I spoke to Dr. Cisneros and relayed the results of the arterial bilateral duplex to him. I also relayed physical exam findings to him. He states that he would not do any acute intervention at this time. The patient could follow-up with him as needed. The patient will be discharged back to [facility] and rehabilitation. My attending physician, Dr. Jacobson, also examined patient and is in agreement with plan and disposition. 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 Cisneros. Return to the emergency department for any acute, worsening of symptoms. Med/Other Pt SpecificInfo: No Change to Meds Disposition: 01 DISCHARGE HOME Condition: Stable Ly Hughes Jul 29, 2016 18:43
[2016-07-29] MEDS ORDERED: VITA-83 PO (19:26)
[2016-07-29] MEDS ORDERED: MULTTAB62 PO (19:26)
[2016-07-29] MEDS ORDERED: CHOL4POW4 PO (19:26)
[2016-07-29] MEDS ORDERED: REME15TA PO (19:26)
[2016-07-29] MEDS ORDERED: MAGN500T4 PO (19:26)
[2016-07-29] MEDS ORDERED: DIFFCHW PO (19:26)
[2016-07-29] MEDS ORDERED: FERR325T PO (19:26)
[2016-07-29] MEDS ORDERED: OMEP20TA PO (19:26)
[2016-07-29] MEDS ORDERED: CALC500C16 PO (19:26)
[2016-07-29 20:36] VITALS: BP 112/76; PULSE 68; RESP 16; O2SAT 95
== END 2016-07-29 20:53 | disposition home or self-care (01) ==
LOC: NEPE 18:04
DX: I77.1 Stricture of artery (principal)